=== PATIENT | female | born 1980 | race Caucasian/White ===

== ENCOUNTER → 2018-05-31 10:01 | Outpatient (CLI) | payer OTHER, SELFPAY ==
[2018-05-31 12:32] LABS: Cholesterol 210 mg/dL (200); High Density Lipoprotein 38 mg/dL; Triglycerides 126 mg/dL; Very Low Density Lipoprotein 25 mg/dL (5-40)
== END ==
PROVIDERS: Family Provider Family Medicine; PCP Family Medicine; Visit Provider Family Medicine
DX: E78.5 Hyperlipidemia, unspecified (principal)
CPT/HCPCS: 36415; 80061

== ENCOUNTER → 2018-08-26 11:41 | Outpatient (CLI) | payer OTHER, SELFPAY ==
[2018-08-30 08:15] LABS: HPV Reflexed? NOT INDICATED
== END ==
PROVIDERS: Visit Provider Obstetrics & Gynecology
DX: Z12.4 Encounter for screening for malignant neoplasm of cervix (principal)
CPT/HCPCS: 88175; G0145

== ENCOUNTER → 2018-08-29 09:22 | Outpatient (CLI) | payer OTHER, SELFPAY ==
--- NOTE | 2018-08-29 09:38 | BI_ITS ---
MAMMOGRAPHY - BILATERAL DIAGNOSTIC REASON FOR EXAM: Female, 38 years old. Palpable left breast mass. PERTINENT HISTORY: Non-contributory. Prior ultrasound-guided biopsy of the nodular density in the upper outer quadrant of the left breast. TECHNIQUE: Digital bilateral breast barrington (3D mammographic acquisition) in the CC and MLO projections. 2-D mediolateral oblique (MLO) and craniocaudad (CC) views of both breasts were obtained. CAD: Full Field Digital Mammography with Computer Added Detection was performed. COMPARISON: Comparison is made with prior mammogram dated January 13, 2017 and March 20, 2017. FINDINGS: Breast Composition: The breasts are heterogeneously dense, which may obscure small masses. There are no dominant masses or suspicious calcifications. Once again, a tissue clip marker is seen in the anterior upper lateral portion of the left breast. The nodule measures 2.2 cm x 1.9 cm. A tissue clip marker is seen within it. A tissue clip marker is also seen within the small nodule in the anterior superficial upper lateral portion of the right breast. No other significant abnormalities are identified. There has been no significant change since the prior study. BI/DIAG MAMM W/CAD, BILAT IMPRESSION: Stable bilateral diagnostic mammogram. One year follow-up recommended. (A) ASSESSMENT CATEGORY: BIRADS Category 2: Benign. A letter regarding these results will be sent to the patient by the facility within 30 days. Approximately 10% of breast cancers are not detected by mammography. A normal mammogram should not delay biopsy of a clinically suspicious abnormality. Electronically Signed: Ty Chao MD at 12:34 EST Tel [phone], Service support ,
--- NOTE | 2018-08-29 09:38 | US_ITS ---
STUDY: ULTRASOUND BREAST - LEFT REASON FOR EXAM: Female, 38 years old. Palpable lump left breast. TECHNIQUE: Axial and longitudinal images of the LEFT breast were performed with a high resolution ultrasound transducer. COMPARISON: Comparison is made with prior mammogram done earlier today as well as prior ultrasound the left breast dated January 13, 2017. FINDINGS: LEFT Breast: There is a 1.8 cm x 2 cm x 1.6 cm lobular hypoechoic solid mass at the 1:00 position of the breast at 3 signs of nipple. A tissue clip marker is seen within. There has been essentially no change. US/Breast Limited Unilateral IMPRESSION: Stable appearance of the lobulated hypoechoic solid nodule at the 1:00 position breast at 3 cm from nipple. A tissue clip marker is seen within it. ASSESSMENT CATEGORY: BIRADS Category 2: Benign. A letter regarding these results will be sent to the patient by the facility within 30 days. Electronically Signed: Ty Chao MD at 12:32 EST Tel [phone], Service support ,
== END ==
PROVIDERS: Family Provider Family Medicine; PCP Family Medicine; Referring Provider Obstetrics & Gynecology; Visit Provider Obstetrics & Gynecology
DX: N63.21 Unspecified lump in the left breast, upper outer quadrant (principal); R92.8 Other abnormal and inconclusive findings on diagnostic imaging of breast
CPT/HCPCS: 76642; 77062; 77063; 77066; 77067; G0279

== ENCOUNTER → 2020-04-09 08:12 | Outpatient (CLI) | payer OTHER, SELFPAY ==
--- NOTE | 2020-04-09 08:14 | BI_ITS ---
MAMMOGRAPHY - BILATERAL SCREENING REASON FOR EXAM: Female, 39 years old. Routine annual screening examination. PERTINENT HISTORY: Non-contributory. Remote bilateral breast biopsies. TECHNIQUE: Digital bilateral breast kam (3D mammographic acquisition) in the CC and MLO projections. 2-D mediolateral oblique (MLO) and craniocaudad (CC) views of both breasts were obtained. CAD: Full Field Digital Mammography with Computer Added Detection was performed. COMPARISON: Comparison is made with prior study dated 02/26/2019 and 02/17/2017. FINDINGS: Breast Composition: The breasts are heterogeneously dense, which may obscure small masses. There are no dominant masses or suspicious calcifications. A tissue clip marker is once again seen in the anterior upper lateral portion of the left breast. This is seen within a nodule measuring 2.2 cm x 1.9 cm. A tissue clip marker is also seen in the small nodule in the anterior superficial upper lateral portion of the right breast. No other significant abnormalities are identified. There has been no significant change since the prior study. BI/SCREEN MAMM (CAD) W/KAM BILAT IMPRESSION: Stable bilateral screening mammogram. Yearly follow-up mammogram recommended. (A) ASSESSMENT CATEGORY: BIRADS Category 2: Benign. A letter regarding these results will be sent to the patient by the facility within 30 days. Approximately 10% of breast cancers are not detected by mammography. A normal mammogram should not delay biopsy of a clinically suspicious abnormality. [id number] Electronically Signed: Ty Chao, at 9:47 EDT , Service support ,
== END ==
PROVIDERS: PCP Family Medicine; Referring Provider Obstetrics & Gynecology; Visit Provider Obstetrics & Gynecology
DX: Z12.31 Encounter for screening mammogram for malignant neoplasm of breast (principal)
CPT/HCPCS: 77063; 77067

== ENCOUNTER → 2022-02-20 | Outpatient (CLI) | payer OTHER, SELFPAY ==
--- NOTE | 2022-02-20 14:36 | BI_ITS ---
MAMMOGRAPHY - BILATERAL SCREENING REASON FOR EXAM: Female, 41 years old. Routine annual screening examination. PERTINENT HISTORY: Prior bilateral ultrasound-guided breast biopsy. TECHNIQUE: Digital bilateral breast kam (3D mammographic acquisition) in the CC and MLO projections. 2-D mediolateral oblique (MLO) and craniocaudad (CC) views of both breasts were obtained. CAD: Full Field Digital Mammography with Computer Added Detection was performed. COMPARISON: Comparison is made with prior study 04/09/2020 and 08/29/2018. FINDINGS: Breast Composition: The breasts are extremely dense, which lowers the sensitivity of mammography. There are no dominant masses or suspicious calcifications. A tissue clip marker is once again seen in the anterior upper lateral portion of the left breast. This is seen within the 2.1 cm x 1.5 cm nodule. A tissue clip marker is also seen along the anterior superior lateral portion of the right breast within a tiny nodule. No other significant abnormalities are identified. There has been no significant change since the prior study. BI/SCRN MAMM (CAD)W/KAM BILAT IMPRESSION: Stable bilateral screening mammogram. Yearly follow-up mammogram recommended. (A) ASSESSMENT CATEGORY: BIRADS Category 2: Benign. A letter regarding these results will be sent to the patient by the facility within 30 days. Approximately 10% of breast cancers are not detected by mammography. A normal mammogram should not delay biopsy of a clinically suspicious abnormality. [id number] Electronically Signed: Ty Chao MD at 8:17 EDT ,
== END | disposition home or self-care (01) ==
PROVIDERS: PCP Family Medicine; Referring Provider Family Medicine; Visit Provider Family Medicine
DX: Z12.31 Encounter for screening mammogram for malignant neoplasm of breast (principal)
CPT/HCPCS: 77063; 77067

== ENCOUNTER 2022-04-14 09:27 | Outpatient (CLI) | payer OTHER, SELFPAY ==
[2022-04-23 16:27] LABS: HPV APTIMA, High Risk Negative (Negative)
== END 2022-04-14 23:59 | disposition home or self-care (01) ==
LOC: LABSPEC 09:28
PROVIDERS: PCP Family Medicine; Visit Provider Obstetrics & Gynecology
DX: Z12.4 Encounter for screening for malignant neoplasm of cervix (principal)
CPT/HCPCS: 87624; 88175; G0145

== ENCOUNTER → 2023-03-22 | Outpatient (CLI) | payer OTHER, SELFPAY ==
[2023-03-22 12:15] LABS: Absolute Neutrophil Count 3.1 X10^3/uL (2.0-7.7); Basophil# 0.03 X10^3/uL; Basophil% 0.6 % (0-1); Eosinophil# 0.04 X10^3/uL; Eosinophils% 0.8 % (0-5); Hematocrit 39.2 % (37-47); Hemoglobin 12.7 g/dL (12.0-15.0); Lymphocyte % 32.2 % (19-41); Mean Corp Hgb Conc 32.4 g/dL (32-36); Mean Corpuscular Hgb 29.2 pg (27.0-32.0); Mean Corpuscular Volume 90.1 fL (81-99); Mean Platelet Vol. 9.4 fl (6.2-12.0); Monocyte# 0.35 X10^3/uL; Monocyte% 6.6 % (0-10); NRBC Flagged by Analyzer 0 % (0-5); Neutrophil # 3.14 X10^3/uL (2.7-7.7); Neutrophil % 59.4 % (47-70); Platelet Count 333 K/mm3 (150-450); RBC Distribution Width CV 13.3 % (11.6-14.6); RBC Distribution Width SD 44.4 fl (35.1-43.9); Red Blood Count 4.35 M/mm3 (4.2-5.4); White Blood Count 5.3 K/mm3 (4.4-11.0)
[2023-03-22 13:04] LABS: ALB/GLOB Ratio 1.2 RATIO (0.9-2.4); AST(SGOT) 13 U/L (15-37); Alanine Aminotransfer ALT/SGPT 15 U/L (13-56); Alkaline Phosphatase 73 U/L (45-117); Anion Gap 5 (5-15); BUN 11 mg/dL (7-18); BUN/Creat Ratio 15.8 RATIO (10-20); Calcium,Total 8.8 mg/dL (8.5-10.1); Chloride 108 mmol/L (98-107); Cholesterol 238 mg/dL (200); EST Glomerular Filtration Rate 98 mL/min (>60); Est Glom Filt Rate - Afr Amer 118 mL/min (>60); Globulin 3.4 g/dL (2.2-4.2); Glucose 110 mg/dL (74-106); High Density Lipoprotein 65 mg/dL; Potassium 3.8 mmol/L (3.5-5.1); Protein, Total 7.4 g/dL (6.4-8.2); Sodium Level 139 mmol/L (136-145); Triglycerides 53 mg/dL; Very Low Density Lipoprotein 11 mg/dL (5-40)
== END | disposition home or self-care (01) ==
LOC: BFHLAB 10:14
PROVIDERS: PCP Family Medicine; Referring Provider Family Medicine; Visit Provider Family Medicine
DX: Z00.00 Encounter for general adult medical examination without abnormal findings (principal); E78.5 Hyperlipidemia, unspecified
CPT/HCPCS: 36415; 80053; 80061; 85025

== ENCOUNTER → 2023-03-30 | Outpatient (CLI) | payer OTHER, SELFPAY ==
--- NOTE | 2023-03-30 07:04 | BI_ITS ---
MAMMOGRAPHY - BILATERAL SCREENING REASON FOR EXAM: Female, 42 years old. Routine annual screening examination. PERTINENT HISTORY: Non-contributory. Prior bilateral ultrasound-guided breast biopsies. TECHNIQUE: Digital bilateral breast kam (3D mammographic acquisition) in the CC and MLO projections. 2-D mediolateral oblique (MLO) and craniocaudad (CC) views of both breasts were obtained. CAD: Full Field Digital Mammography with Computer Added Detection was performed. COMPARISON: Comparison is made with prior study dated February 20, 2022 and April 09, 2020. FINDINGS: Breast Composition: The breasts are extremely dense, which lowers the sensitivity of mammography. There are no dominant masses or suspicious calcifications. A tissue clip marker is once again seen in the anterior upper lateral portion of the right breast. A tissue clip marker is also seen in the anterior superior lateral aspect of the left breast. This is within a 2.1 cm nodule. No other significant abnormalities are identified. There has been no significant change since the prior study. BI/SCRN MAMM (CAD)W/KAM BILAT IMPRESSION: Stable bilateral screening mammogram. Yearly follow-up mammogram recommended. (A) ASSESSMENT CATEGORY: BIRADS Category 2: Benign. A letter regarding these results will be sent to the patient by the facility within 30 days. Approximately 10% of breast cancers are not detected by mammography. A normal mammogram should not delay biopsy of a clinically suspicious abnormality. [id number] Electronically Signed: Ty Chao MD at 8:43 EDT ,
== END | disposition home or self-care (01) ==
LOC: OPBI 07:02
PROVIDERS: PCP Family Medicine; Referring Provider Family Medicine; Visit Provider Family Medicine
DX: Z12.31 Encounter for screening mammogram for malignant neoplasm of breast (principal)
CPT/HCPCS: 77063; 77067

== ENCOUNTER → 2024-12-22 | Outpatient (CLI) | payer OTHER, SELFPAY | END | disposition home or self-care (01) | LOC: LABSPEC 14:58 | PROVIDERS: PCP Family Medicine; Referring Provider Family Medicine; Visit Provider Family Medicine | DX: Z11.3 Encounter for screening for infections with a predominantly sexual mode of transmission (principal) ==

== ENCOUNTER → 2025-01-24 | Outpatient (CLI) | payer OTHER, SELFPAY ==
[2025-01-24 15:13] LABS: Cholesterol 240 mg/dL (<=200); Glucose 98 mg/dL (70-99); High Density Lipoprotein 60 mg/dL; Low Density Lipoprotein Calc. 160 mg/dL; Triglycerides 104 mg/dL; Very Low Density Lipoprotein 21 mg/dL (5-40); cholesterol:hdl ratio screen 4.02
== END | disposition home or self-care (01) ==
LOC: LAB 12:40
PROVIDERS: PCP Family Medicine; Referring Provider Family Medicine; Visit Provider Family Medicine
DX: Z13.1 Encounter for screening for diabetes mellitus (principal); E78.5 Hyperlipidemia, unspecified
CPT/HCPCS: 36415; 80061; 82947

== ENCOUNTER → 2025-03-07 | Outpatient (CLI) | payer OTHER, SELFPAY ==
--- NOTE | 2025-03-07 14:45 | BI_ITS ---
EXAM: SCRN MAMM (CAD)W/KAM BILAT DATE: 03/07/2025 CLINICAL HISTORY: F, Age 44 y/o , SCREENING TECHNIQUE: SCRN MAMM (CAD)W/KAM BILAT COMPARISON: Prior exam(s) were compared FINDINGS: TISSUE DENSITY: The breasts are heterogeneously dense, which may obscure small masses. Bilateral Breast Mammographic Findings: Left breast: There is spiculated mass in the lower-inner left breast posterior depth Right breast: No suspicious masses, calcifications or other abnormalities are identified. BI/SCRN MAMM (CAD)W/KAM BILAT IMPRESSION: Additional diagnostic imaging is recommended of the left breast with diagnostic left breast mammogram and diagnostic ultrasound. No mammographic evidence of malignancy in the right breast OVERALL FINAL ASSESSMENT BI-RADS 0: INCOMPLETE - NEED ADDITIONAL IMAGING EVALUATION. RECOMMENDATION: Additional Views obtained/call backs A letter with findings and recommendations will be mailed to the patient. Reading Location: [id number]
--- OUTSIDE RECORDS SUMMARY | 2025-03-07 20:13 | XMS RPT_ITS | CCD ---
Author Organization [facility] Inform ion Partnership [facility] Care Team Providers Care Building Wrecker Name Role Phone Janeth MONTGOMERY, Haydee Gordon Unavailable MATTHEW Vasquez RN, Loulou Harman Unavailabl belinda Vasquez RN RN, Loulou Harman Unavailabl e Dr. Lesley Orourke DO Primary Care Provider Contreras MONTGOMERY, Dr. Bloom Attending Provider [phone] Contreras MONTGOMERY, Dr. Bloom Referring Provider Dr. Lesley Orourke DO Attending Provider [phone] Dr. Lesley Orourke DO Referring Provider [phone] Lesley Orourke Primary Care Unavailable Malys, Lesley Referring Unavailable MalysLesley Attending Unavailable Merle Chairez Referring Unavailable Merle Chairez Attending Unavailable Malys, Lesley Primary Care Unavailable Malys, Lesley Primary Care Unavailable Malys, Lesley Referring Unavailable MalysLesley Attending Unavailable Allergies Allergy Classification Reported Allergen(s) Allergy Type Date of Onset Reaction(s) Facility (3 sources) sulfADIAZINE drug allergy 01-25-2017 [facility] Work Phone: Medications Completed/Discontinued Medications Medication Drug Class(es) Dates Sig (Normalized) Sig (Original) Drug Treatment Unknown - unknown (3 sources) No information available. Problems Problem Classification Problem Date Documented Date Episodic/Chronic Immunizations and screening for infectious disease (1 source) Encounter for screening for infections with a predominantly sexual mode of transmission; Translations: [Encounter for screening for infections with a predominantly sexual mode of transmission] Onset: 01-15-2025 Episodic Nonmalignant breast conditions (6 sources) Breast lump; Translations: [Unspecified lump in the right breast, unspecified quadrant] Onset: 01-25-2017 01-25-2017 Episodic Other nutritional; endocrine; and metabolic disorders (3 sources) Overweight; Translations: [Overweight] Onset: 01-25-2017 01-25-2017 Chronic Other screening for suspected conditions (not mental disorders or infectious disease) (4 sources) Mammography abnormal; Translations: [Encounter for other screening for malignant neoplasm of breast] Onset: 01-25-2017 01-25-2017 Episodic Results Test Name Value Interpretation Reference Range Facility Calculated very low density lipoprotein (VLDL) cholesterol measurementOrdered By: Lesleymolly Orourke on 01-24-2025 Calculated very low density lipoprotein (VLDL) cholesterol measurement 21 mg/dL 5-40 [facility] Glucoseon 01-24-2025 Glucose [Mass/Vol] 98 mg/dL Normal 70-99 [facility] Comment on above: Performed By: #### L 501.0100, L500.4100 #### [facility] [address] [place], [place], [address] LDL calc ser/plasOrdered By: Lesley Orourke on 01-24-2025 Cholesterol in LDL [Mass/Vol] 160 mg/dL [facility] Comment on above: Fqxtyjhkvc=216-170 m g/dL & Higher Apcj=013 mg/dL or greater Lipid Profileon 01-24-2025 CHOL:HDL 4.02 Normal [facility] Comment on above: Performed By: #### L 501.0100, L500.4100 #### [facility] [address] [place], [place], [address] Cholesterol [Mass/Vol] 240 mg/dL High <=200 [facility] Comment on above: Result Comment: Chol esterol level, Desirable <200 mg/dL Borderline high cholesterol 200-239 mg/dL High cholesterol >=240 mg/dL Recommendations of the NCEP Adult Treatment Panel for the following risk-cutoff thresholds for the [place] population. Performed By: #### L 501.0100, L500.4100 #### [facility] [address] [place], [address] Cholesterol in HDL [Mass/Vol] 60 mg/dL Normal [facility] Comment on above: Result Comment: Nora onal Cholesterol Education Program (NCEP) guidelines: <40 mg/dL: Low HDL-cholesterol (major risk factor for CHD) >= 60 mg/dL: High HDL-cholesterol (negative risk factor for CHD) HDL-cholesterol is affected by a number of factors, e.g. smoking, exercise, hormones, sex and age. Performed By: #### L 501.0100, L500.4100 #### [facility] [address] [place], [address] Cholesterol in LDL [Mass/Vol] 160 mg/dL Normal [facility] Comment on above: Result Comment: Bord dikndh=295-879 mg/dL Higher Ynbv=071 mg/dL or greater Performed By: #### L 501.0100, L500.4100 #### [facility] [address] [place], [address] Cholesterol in VLDL [Mass/Vol] 21 mg/dL Normal 5-40 [facility] Comment on above: Performed By: #### L 501.0100, L500.4100 #### [facility] [address] [place], [address] Triglyceride [Mass/Vol] 104 mg/dL Normal [facility] Comment on above: Result Comment: The drugs N-Acetylcysteine and Metamizole may falsely depress this assay. Normal range: <150 mg/dL Borderline High: 150-199 mg/dL High: 200-499 mg/dL Very High: >500 mg/dL Performed By: #### L 501.0100, L500.4100 #### [facility] [address] [place], [address] Screening total cholesterol/ high density lipoprotein (HDL) cholesterol ratioOrdered By: Lesley Orourke on 01-24-2025 Cholesterol.total/Chol esterol in HDL [Mass ratio] 4.02 {ratio} [facility] Serum glucose measurement (m ass/volume)Ordered By: Lesley Orourke on 01-24-2025 Glucose [Mass/Vol] 98 mg/dL 70-99 [facility] Serum or plasma cholesterol in HDL measurement (mass/volume)Ordered By: Lesley Orourke on 01-24-2025 Cholesterol in HDL [Mass/Vol] 60 mg/dL >40 [facility] Comment on above: National Cholesterol Education Program (NCEP) guidelines:<40 mg/dL: Low HDL-cholesterol (major risk factor for CHD)>= 60 mg/dL: High HDL-cholesterol (negative risk factor for CHD)HDL-cholesterol is affected by a number of factors, e.g. smoking, exercise, hormones, sex and age. Serum or plasma cholesterol measurement (mass/volume)Ordered By: Lesley Orourke on 01-24-2025 Cholesterol [Mass/Vol] 240 mg/dL High <201 [facility] Comment on above: Cholesterol level, D esirable <200 mg/dLBorderline high cholesterol 200-239 mg/dLHigh cholesterol >=240 mg/dLRecommendations of the NCEP Adult Treatment Panel for the following risk-cutoff thresholds for the [place] population. Triglycerides measurementOrd ered By: Lesley Orourke on 01-24-2025 Triglyceride [Mass/Vol] 104 mg/dL <199 [facility] Comment on above: The drugs N-Acetylcy steine and Metamizole may falsely depress this assay. Normal range: <150 mg/dLBorderline High: 150-199 mg/dLHigh: 200-499 mg/dLVery High: >500 mg/dL L3410.9992on 12-26-2024 [facility] Misc. COMMENT Normal . [facility] Comment on above: Order Comment: 1 NUSWAB VAGINITIS PLUS (VG+) Result Comment: Test Ordered: [id number] NuSwab Vaginitis Plus (VG+) Test(s) 18000114- Atopobium vaginae; 18000115- BVAB 2; 18000116- Megasphaera 1 was developed and its performance characteristics determined by [facility]. It has not been cleared or approved by the Food and Drug Administration. Test(s) 774515-Uudjebx albicans, NADIA; 17991220- Liliana glabrata, NADIA was developed and its performance characteristics determined by [facility]. It has not been cleared or approved by the Food and Drug Administration. Atopobium vaginae Low - 0 Score =G Reference Range: . BVAB 2 Low - 0 Score =G Reference Range: . Megasphaera 1 Low - 0 Score =G Reference Range: . Calculate total score by adding the 3 individual bacterial vaginosis (BV) marker scores together. Total score is interpreted as follows: Total score 0-1: Indicates the absence of BV. Total score 2: Indeterminate for BV. Additional clinical data should be evaluated to establish a diagnosis. Total score 3-6: Indicates the presence of BV. Liliana albicans, NADIA Positive [A ] =G Reference Range: Negative Liliana glabrata, NADIA Negative =G Reference Range: Negative Trich vag by NADIA Negative =G Reference Range: Negative Chlamydia trachomatis, NADIA Negative =G Reference Range: Negative Neisseria gonorrhoeae, NADIA Negative =G Reference Range: Negative Performed at: =[facility] [id number] Television Mechanic: Hanna Lopez MD, Phone: [phone] Performed at: [address] [id number] Television Mechanic: Camron Henson PhD, Phone: [phone] Performed By: #### L 3410.9992 #### [facility] [address] [place] [address], [address] 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 [facility] Former smoker Invalid Interpretation Code [facility] Work Phone: Office Visit: right breast a bnormal u/s_left breast ?fibroadenomaon 01-25-2017 Fall risk assessment No [facility] Work Phone: Protein mass conc Done [facility] [employer] Work Phone: Protein mass conc no [facility] [employer] Work Phone: Tobacco smoking status NHIS Never [facility] Work Phone: Tobacco smoking status NHIS Former smoker [facility] [employer] Work Phone: Vital Signs Date Time Vital Sign Value Performing Clinician Facility 01-25-2017 14:26-0400 BMI (Body Mass Index) 29.99 kg/m2 Loulou Vasquez RN RN [facility] Work Phone: 01-25-2017 14:26-0400 Body Temperature 98.3 [degF] Loulou Vasquez RN RN [facility] Work Phone: 01-25-2017 14:26-0400 BP Diastolic 73 mm[Hg] Loulou Vasquez RN RN [facility] Work Phone: 01-25-2017 14:26-0400 BP Systolic 124 mm[Hg] Loulou Vasquez RN RN [facility] Work Phone: 01-25-2017 14:26-0400 Height 167.64 cm Loulou Vasquez RN RN [facility] Work Phone: 01-25-2017 14:26-0400 Pulse (Heart Rate) 66 /min Loulou Vasquez RN RN [facility] Work Phone: 01-25-2017 14:26-0400 Pulse Oximetry 100 % Loulou Vasquez RN RN [facility] Work Phone: 01-25-2017 14:26-0400 Respiratory Rate 18 /min Loulou Vasquez RN RN [facility] Work Phone: 01-25-2017 14:-0400 Weight 84.28 kg Loulou Vasquez RN RN [facility] Work Phone: Encounters Encounter Date Encounter Type Care Provider Facility Start: 03-07-2025 ambulatory Lesley Orourke Facility:[facility] Start: 01-24-2025 End: 01-24-[address] Lesley Orourke DO Work Phone: [facility] Work Phone: Start: 01-24-2025 End: 01-24-[address] Lesley Orourke DO -Laboratory Work Phone: Start: 01-24-2025 End: 01-24-2025 ambulatory Lesley Orourke Facility:[facility] Start: 12-22-2024 End: 12-22-[address] Lesley Orourke DO Work Phone: [facility] Work Phone: Start: 12-22-2024 End: 12-22-[address] Merle Chairez MD -Laboratory, Specimen Work Phone: Start: 12-22-2024 End: 12-22-2024 ambulatory Merle Chairez Facility:[facility] Start: 04-14-2022 End: 04-14-2022 ambulatory [facility] Work Phone: Start: 04-14-2022 End: 04-14-2022 Patient encounter procedure [facility]-Laboratory, Specimen Start: 02-20-2022 End: 02-20-2022 Patient encounter procedure [facility]-Outpatient Breast Imaging Procedures Date Procedure Procedure Detail Performing Clinician Start: 12-22-[address] Lesley Orourke DO Work Phone: Comment on above: Test Ordered: [id number] NuSwab Vaginitis Pl us (VG+)Test(s) 303301- Atopobium vaginae; 873380- BVAB 2;336927- Megasphaera 1was developed and its performance characteristicsdetermined by [facility]. It has not been cleared or approvedby the Food and Drug Administration.Test(s) 928456-Ckzqqof albicans, NADIA; 871319-Aadkcba glabrata, NAAwas developed and its performance characteristicsdetermined by [facility]. It has not been cleared or approvedby the Food and Drug Administration. Atopobium vaginae Low - 0 Score =G Reference Range: . BVAB 2 Low - 0 Score =G Reference Range: . Megasphaera 1 Low - 0 Score =G Reference Range: .Calculate total score by adding the 3 individual bacterialvaginosis (BV) marker scores together. Total score isinterpreted as follows:Total score 0-1: Indicates the absence of BV.Total score 2: Indeterminate for BV. Additional clinical data should be evaluated to establish a diagnosis.Total score 3-6: Indicates the presence of BV.Liliana albicans, NADIA Positive [A ] =G Reference Range: NegativeCandida glabrata, NADIA Negative =G Reference Range: NegativeTrich vag by NADIA Negative =G Reference Range: NegativeChlamydia trachomatis, NADIA Negative =G Reference Range: NegativeNeisseria gonorrhoeae, NADIA Negative =G Reference Range: NegativePerformed at: =G - [facility] [place], [place] [id number] Director: Hanna Lopez MD, Phone: [phone] at: - [facility] [id number] Director: Camron Henson PhD, Phone: [phone] Start: 02-20-2022 Screening mammography Start: 01-25-2017 End: 01-25-2017 Dietary management education, guidance, and counseling Loulou Vasquez RN RN Plan of Treatment Date Care Activity Detail Author Start: 02-17-2017 End: 02-17-2017 Appointment Appointment [facility] [employer] Work Phone: Start: 01-25-2017 End: 01-25-2017 Appointment Appointment [facility] [employer] Work Phone: Start: 01-25-2017 End: 01-25-2017 Bx breast w/device 1st lesion ultrasound guid Bx Breast, device placement, US guidance [facility] [employer] Work Phone: Start: 01-25-2017 End: 01-25-2017 Follow Up after Imaging/labs Follow Up after Imaging/labs [facility] [employer] Work Phone: Path report.final Dx Spec [facility] Work Phone: Payers Date Payer Category Payer Self-pay [id number] 2024 Unknown [id number] 2014 Unknown [id number] Private Health Insurance [id number] Unknown [id number] Unknown [id number] Unknown [id number] Social History Date Type Detail Facility Start: 05-15-2013 Tobacco smoking stat [facility] Unknown if ever smoked [facility] Work Phone: Start: 1980 Sex Assigned At Female [facility] Start: 05-15-2013 Tobacco smoking stat [facility] Ex-smoker (finding) [facility] Evaluation note Note Date & Type Note Facility Evaluation note No assessment information availa ble [facility] Work Phone: Reason for referral (narrative) Note Date & Type Note Facility Reason for referral (narrative) No reason for referral information available [facility] Work Phone: Chief Complaint and Reason for Visit Chief Complaint SCREENING Summary Purpose Family History No Family History Records Found Advance Directives No Advanced Directives Records Found Additional Source Comments Goals (unrecognized section and content) Goals may be documented in a n alternate sectionGoals may be documented in an alternate sectionGoals may be documented in an alternate sectionGoals may be documented in an alternate section Care Teams (unrecognized sec tion and content) Team Status: Active Member Role Status Dates Dr. Lesley Orourke DO Family Provider Active Dr. Lesley Orourke DO Primary Care Provider Active Team Status: Inactive Member Role Status Dates Dr. Lesley Orourke DO Primary Care Provider Active Start: December 22, 2024 End: December 22, 2024 Dr. Merle Chairez MD Attending Provider Active Start: December 22, 2024 End: December 22, 2024 Dr. Merle Chairez MD Referring Provider Active Start: December 22, 2024 End: December 22, 2024 Team Status: Inactive Member Role Status Dates Dr. Lesley Orourke DO Primary Care Provider Active Start: January 24, 2025 End: January 24, 2025 Dr. Lesley Orourke DO Attending Provider Active St art: January 24, 2025 End: January 24, 2025 Dr. Lesley Orourke DO Referring Provider Active St art: January 24, 2025 End: January 24, 2025 INFORMATION SOURCE (unrecogn ized section and content) DATE CREATED AUTHOR 03/02/[address] [facility] FOR RECORDS PERTAINING TO PATIENTS WHO ARE OR HAVE BEEN ENROLLED IN A CHEMICAL DEPENDENCY/SUBSTANCEABUSE PROGRAM, SOME INFORMATION MAY BE OMITTED. This clinical summary was aggregated from multiple sources. Caution should be exercised in using it in the provision of clinical care. This summary normalizes information from multiple sources, and as a consequence, information in this document may materially change the coding, format and clinical context of patient data. In addition, data may be omitted in some cases. CLINICAL DECISIONS SHOULD BE BASED ON THE PRIMARY CLINICAL RECORDS. [employer] provides no warranty or guarantee of the accuracy or completeness of information in this document.
== END | disposition home or self-care (01) ==
LOC: OPBI 14:44
PROVIDERS: PCP Family Medicine; Referring Provider Family Medicine; Visit Provider Family Medicine
DX: Z12.31 Encounter for screening mammogram for malignant neoplasm of breast (principal)
CPT/HCPCS: 77063; 77067

== ENCOUNTER → 2025-03-09 | Outpatient (CLI) | payer OTHER, SELFPAY ==
--- NOTE | 2025-03-09 09:32 | BI_ITS ---
EXAM: DIAG MAMM W/CAD, UNILAT; LT BRST UNILAT KAM ADD ON; BREAST COMPLETE UNILATERAL 03/09/2025 CLINICAL HISTORY: 44-year-old female presents for follow-up examination for the left breast mass seen on examination of 03/07/2025. No family history of breast cancer. TECHNIQUE: DIAG MAMM W/CAD, UNILAT; LT BRST UNILAT KAM ADD ON; BREAST COMPLETE UNILATERAL. COMPARISON: Prior exam(s) dated 03/07/2025, 03/30/2023, 02/20/2022, 04/09/2020. FINDINGS: MAMMOGRAM: TISSUE DENSITY: The breasts are heterogeneously dense, which may obscure small masses. Unilateral Left Breast Mammographic Findings: Follow-up examination performed for the left breast mass seen on examination of 03/07/2025. On the present examination, there is an irregular high density mass in the lower inner left breast at posterior depth. ULTRASOUND: 1. There is an irregular hypoechoic mass with spiculated margins in the left breast at 6:30 o'clock 9 cm from the nipple, measuring 1.9 x 1.5 x 0.8 cm. There is associated internal vascular flow. This is the correlate for the mammographic finding. 2. There is an irregular hypoechoic mass in the left breast at 1 o'clock 8 cm from the nipple, measuring 2.1 x 1.7 x 1.0 cm. There is associated internal vascular flow. This appears morphologically similar to the mass in the left breast at 6:30 o'clock. 3. There are 2 intraductal masses with associated vascular flow in the left breast at 10 o'clock 5 cm from the nipple measuring 0.4 x 0.4 x 0.2 cm and at 10:30 o'clock 5 cm from the nipple measuring 0.3 x 0.3 x 0.2 cm. 4. There are at least 3 abnormal left axillary lymph nodes. There is a left axillary lymph node with a focal cortical bulge measuring 1.7 x 1.2 x 1.3 cm and cortical thickness of 0.4 cm. There is an abnormal left axillary lymph node with loss of the fatty kendrick measuring 0.9 x 0.8 x 0.9 cm. There is another abnormal left axillary lymph node with diffuse cortical thickening and effacement of the fatty hilum measuring 1.8 x 1.8 x 0.9 cm and cortical thickness of 0.7 cm. 5. The remainder of the left breast was imaged demonstrating multiple scattered cysts, also the previously biopsied mass at 12 o'clock 4 cm from the nipple with an associated biopsy marker clip. BI/DIAG MAMM W/CAD, UNILAT IMPRESSION: 1. Left breast mass at 6:30 o'clock is highly suggestive for malignancy. Alvarez mmend tissue sampling with ultrasound-guided biopsy. 2. Left breast mass at 1 o'clock is suspicious. Recommend tissue sampling wit h ultrasound-guided biopsy. 3. Left breast intraductal masses at 10 o'clock and 10:30 o'clock are suspicio us. Recommend tissue sampling of 1 of these masses with ultrasound-guided biopsy. 4. Abnormal left axillary lymph nodes are suspicious. Recommend tissue sampli ng with ultrasound-guided biopsy. OVERALL FINAL ASSESSMENT BI-RADS 5: HIGHLY SUGGESTIVE OF MALIGNANCY. RECOMMENDATION: Biopsy Recommended A letter with findings and recommendations will be mailed to the patient. Reading Location: [id number]
--- NOTE | 2025-03-09 09:33 | BI_ITS ---
EXAM: DIAG MAMM W/CAD, UNILAT; LT BRST UNILAT SAMSON ADD ON; BREAST COMPLETE UNILATERAL 03/09/2025 CLINICAL HISTORY: 44-year-old female presents for follow-up examination for the left breast mass seen on examination of 03/07/2025. No family history of breast cancer. TECHNIQUE: DIAG MAMM W/CAD, UNILAT; LT BRST UNILAT SAMSON ADD ON; BREAST COMPLETE UNILATERAL. COMPARISON: Prior exam(s) dated 03/07/2025, 03/30/2023, 02/20/2022, 04/09/2020. FINDINGS: MAMMOGRAM: TISSUE DENSITY: The breasts are heterogeneously dense, which may obscure small masses. Unilateral Left Breast Mammographic Findings: Follow-up examination performed for the left breast mass seen on examination of 03/07/2025. On the present examination, there is an irregular high density mass in the lower inner left breast at posterior depth. ULTRASOUND: 1. There is an irregular hypoechoic mass with spiculated margins in the left breast at 6:30 o'clock 9 cm from the nipple, measuring 1.9 x 1.5 x 0.8 cm. There is associated internal vascular flow. This is the correlate for the mammographic finding. 2. There is an irregular hypoechoic mass in the left breast at 1 o'clock 8 cm from the nipple, measuring 2.1 x 1.7 x 1.0 cm. There is associated internal vascular flow. This appears morphologically similar to the mass in the left breast at 6:30 o'clock. 3. There are 2 intraductal masses with associated vascular flow in the left breast at 10 o'clock 5 cm from the nipple measuring 0.4 x 0.4 x 0.2 cm and at 10:30 o'clock 5 cm from the nipple measuring 0.3 x 0.3 x 0.2 cm. 4. There are at least 3 abnormal left axillary lymph nodes. There is a left axillary lymph node with a focal cortical bulge measuring 1.7 x 1.2 x 1.3 cm and cortical thickness of 0.4 cm. There is an abnormal left axillary lymph node with loss of the fatty kendrick measuring 0.9 x 0.8 x 0.9 cm. There is another abnormal left axillary lymph node with diffuse cortical thickening and effacement of the fatty hilum measuring 1.8 x 1.8 x 0.9 cm and cortical thickness of 0.7 cm. 5. The remainder of the left breast was imaged demonstrating multiple scattered cysts, also the previously biopsied mass at 12 o'clock 4 cm from the nipple with an associated biopsy marker clip. BI/Lt Brst Unilat Samson Add On IMPRESSION: 1. Left breast mass at 6:30 o'clock is highly suggestive for malignancy. Alvarez mmend tissue sampling with ultrasound-guided biopsy. 2. Left breast mass at 1 o'clock is suspicious. Recommend tissue sampling wit h ultrasound-guided biopsy. 3. Left breast intraductal masses at 10 o'clock and 10:30 o'clock are suspicio us. Recommend tissue sampling of 1 of these masses with ultrasound-guided biopsy. 4. Abnormal left axillary lymph nodes are suspicious. Recommend tissue sampli ng with ultrasound-guided biopsy. OVERALL FINAL ASSESSMENT BI-RADS 5: HIGHLY SUGGESTIVE OF MALIGNANCY. RECOMMENDATION: Biopsy Recommended A letter with findings and recommendations will be mailed to the patient. Reading Location: [id number]
== END | disposition home or self-care (01) ==
LOC: OPBI 09:29
PROVIDERS: PCP Family Medicine; Referring Provider Family Medicine; Visit Provider Family Medicine
DX: R92.8 Other abnormal and inconclusive findings on diagnostic imaging of breast (principal)
CPT/HCPCS: 76641; 77061; 77065; G0279

== ENCOUNTER 2025-03-15 10:09 | Outpatient (CLI) | payer OTHER, SELFPAY ==
--- NOTE | 2025-03-14 15:30 | BRBX_PTH ---
PATIENT: LUCIAN SINGLETARY LOC: [facility] U#:[id number] AGE/SX: 44/F ROOM: RE03/15/[address]: Dr. Nicole Breen DO : 1980 BED: DIS: 03/15/2025 SPEC #: [id number] RECD: 03/14/25 16:56 STATUS: BRITTANY KHALIDA #: [id number] NURA: 03/14/25 15:[address]: Nicole Breen DEPT: SURGICAL PATHOLOGY RECD BY: Honorio Pandya ENTERED: 03/15/25 10:19 SP TYPE: BREAST BX OTHR DR: Dr. Lesley Orourke DO Tissues: A - Left breast, NOS B - Left breast, NOS C - Axillary lymph node, NOS Procedures: Immunohistochemical Stains Surgery Specimen Level IV IHC Stain ADDITIONAL HEADER OPERATION: Left breast biopsy, left lymph node biopsy PRE-OP DIAGNOSIS: Left breast biopsy, left lymph node biopsy TISSUE SUBMITTED: A- Left breast biopsy - 7o'clock, B- Left breast - 1o'clock, C- Left axillary lymph node MICROSCOPIC DIAGNOSIS A. Breast, left, 7 o'clock, 7-10 CMFN, core biopsy: - Invasive ductal carcinoma with neuroendocrine features. - Grade 2 (tubule 3, nuclear 2, mitosis 1). - At least 1.2 cm - ER: positive (95%, intermediate intensity) - ND: positive (80%, intermediate intensity) - [id number]: negative (0) - Ki67: 80% Note: Ecadherin is positive; p120 shows membranous staining pattern, confirming the diagnosis of ductal carcinoma. Synaptophysin is focally positive; Chromogranin is negative. B. Breast, left, 1 o'clock, 8 CMFN, core biopsy: - Invasive ductal carcinoma with neuroendocrine features. - Grade 2 (tubule 3, nuclear 2, mitosis 1). - At least 1.0 cm - ER: positive (95%, intermediate intensity) - ND: positive (100%, strong intensity) - [id number]: negative (1+) - Ki67: 90% Note: Ecadherin is positive; p120 shows membranous staining pattern, confirming the diagnosis of ductal carcinoma. Synaptophysin is focally positive; Chromogranin is negative. C. Lymph node, left axilla, core biopsy: - Positive for macrometastasis, at least 0.8 cm (two of two cores). COMMENT A preliminary diagnosis was discussed with Dr Lanre Fowler 03/21/2025. MICROSCOPIC DESCRIPTION Slides are reviewed. All matched controls reacted appropriately. (Ecadherin, Synaptophysin, Chromogranin, ER, ND) These tests were developed and their performance characteristics determined by [facility]. They may not have been cleared or approved by the U.[place]. Food and Drug Administration. The FDA has determined that such clearance or approval is not necessary. The above immunohistochemical/dualISH markers are reviewed by the Pathologist. All controls show appropriate reactivity. (HER2, p120) All immunohistochemistry, in situ hybridization, and histochemical tests were developed by and are performed at the [facility], [address] [place] [address]. All Immunofluorescent (IF) tests were developed by and are performed at the [facility], [address] [place] [address]. All tests reported here, except those addressing HER2 overexpression as a predictive marker, have not been cleared by or approved by the US Food and Drug Administration (FDA). The laboratory is regulated under CLIA as qualified to perform high-complexity testing. The tests are used for clinical purposes. They should not be regarded as investigational or for research. GROSS DESCRIPTION Received in 3 formalin containers labeled with the patient's name and date of . Designated as: A. "L breast tissue 7 o'clock" are 4 robertson-yellow tissue cores, 0.9 cm to 1.3 cm in length by 0.1 cm in diameter. Entirely submitted in 1 cassette. Cold ischemic time: < 1 minuteFormalin fixation time: 28 hours B. "L breast 1 o'clock" are are 2 robertson-yellow fragmented tissue cores, 0.8 cm and 1.5 cm in length by 0.1 cm in diameter. Entirely submitted in 1 cassette. Cold ischemic time: < 1 minuteFormalin fixation time: 28 hours C. "Lymph" are 2 robertson-yellow fragmented tissue cores, 0.7 cm and 1.0 cm in length by 0.1 cm in diameter. Entirely submitted in 1 cassette. MT 03/15/2025 CPT:05619m2,44491a7,20273a1,43783m6
--- OUTSIDE RECORDS SUMMARY | 2025-03-15 19:10 | XMS RPT_ITS | CCD ---
Author Organization [facility] Care Team Providers Care Pattern Grader Supervisor Name Role Phone Janeth MONTGOMERY, Haydee Gordon Unavailable MATTHEW Vasquez RN, Loulou Foote Unavailable Mary Vasquez RN RN, Loulou Molly Unavailable Mary e Haven MONTALVO, Dr. Sutton Primary Care Provider Contreras MONTGOMERY, Dr. Bloom Attending Provider Contreras MONTGOMERY, Dr. Bloom Referring Provider Dr. Lesley Orourke DO Attending Provider Dr. Lesley Orourke DO Referring Provider Malys, Lesley Referring Unavailable Malys, Lesley Primary Care Unavailable Malys, Lesley Attending Unavailable Malys, Lesley Referring Unavailable Malys, Lesley Primary Care Unavailable Malys, Lesley Attending Unavailable Malys, Lesley Primary Care Unavailable Merle Chairez Attending Unavailable Merle Chairez Referring Unavailable Malys, Lesley Primary Care Unavailable Haydee Fowler Attending Unavailable Adielys, Lesley Referring Unavailable Malys, Lesley Referring Unavailable Malys, Lesley Primary Care Unavailable Malys, Lesley Attending Unavailable Dr. Haydee Fowler MD Attending Provider Dr. Nicole Breen DO Attending Provider Allergies Allergy Classification Reported Allergen(s) Allergy Type Date of Onset Reaction(s) Facility (3 sources) sulfADIAZINE drug allergy 7 [facility] Work Phone: (2 sources) Sulfonamides (Antibiotic) Allergy to substance 5 [facility] Medications Completed/Discontinued Medications Medication Drug Class(es) Dates Sig (Normalized) Sig (Original) Drug Treatment Unknown - unknown (3 sources) No information available. Problems Problem Classification Problem Date Documented Date Episodic/Chronic Contraceptive and procreative management (1 source) Intrauterine contraceptive device in situ; Translations: [Presence of (intrauterine) contraceptive device] 03-14-2025 Episodic Immunizations and screening for infectious disease (1 source) Encounter for screening for infections with a predominantly sexual mode of transmission; Translations: [Encounter for screening for infections with a predominantly sexual mode of transmission] Onset: 01-15-2025 Episodic Lymphadenitis (2 sources) Axillary lymphadenopathy; Translations: [Localized enlarged lymph nodes] 03-14-2025 Episodic Comment on above: Left suspicious for mets Nonmalignant breast conditions (13 sources) Breast lump; Translations: [Unspecified lump in the right breast, unspecified quadrant] Onset: 01-25-2017 01-25-2017 Episodic Other nutritional; endocrine; and metabolic disorders (3 sources) Overweight; Translations: [Overweight] Onset: 01-25-2017 01-25-2017 Chronic Other screening for suspected conditions (not mental disorders or infectious disease) (5 sources) Mammography abnormal; Translations: [Other abnormal and inconclusive findings on diagnostic imaging of breast] Onset: 01-25-2017 01-25-2017 Episodic Results Test Name Value Interpretation Reference Range Facility Breast Complete Unilateralon 03-09-2025 Breast Complete Unilateral [facility] [address], [place] [address] Breast Complete Unilateral MR#: [id number] Acct: [id number] Name: LUCIAN SINGLETARY Rep #: [id number] : 1980 F 44 From: Jojo Corado MD PCP: Dr. Lesley Orourke, Status: [facility] CLI Study: Breast Complete Unilateral Date of Exam: 03/09 Exam# [id number] Ordering Dr: Lesley Orourke DO EXAM: DIAG MAMM W/CAD, UNILAT; LT BRST UNILAT SAMSON ADD ON; BREAST COMPLETE UNILATERAL 03/09/2025 CLINICAL HISTORY: 44-year-old female presents for follow-up examination for the left breast mass seen on examination of 03/07/2025. No family history of breast cancer. TECHNIQUE: DIAG MAMM W/CAD, UNILAT; LT BRST UNILAT SAMSON ADD ON; BREAST COMPLETE UNILATERAL. COMPARISON: Prior exam(s) dated 03/07/2025, 03/30/2023, 02/20/2022, 04/09/2020. FINDINGS: MAMMOGRAM: TISSUE DENSITY: The breasts are heterogeneously dense, which may obscure small masses. Unilateral Left Breast Mammographic Findings: Follow-up examination performed for the left breast mass seen on examination of 03/07/2025. On the present examination, there is an irregular high density mass in the lower inner left breast at posterior depth. ULTRASOUND: 1. There is an irregular hypoechoic mass with spiculated margins in the left breast at 6:30 o'clock 9 cm from the nipple, measuring 1.9 x 1.5 x 0.8 cm. There is associated internal vascular flow. This is the correlate for the mammographic finding. 2. There is an irregular hypoechoic mass in the left breast at 1 o'clock 8 cm from the nipple, measuring 2.1 x 1.7 x 1.0 cm. There is associated internal vascular flow. This appears morphologically similar to the mass in the left breast at 6:30 o'clock. 3. There are 2 intraductal masses with associated vascular flow in the left breast at 10 o'clock 5 cm from the nipple measuring 0.4 x 0.4 x 0.2 cm and at 10:30 o'clock 5 cm from the nipple measuring 0.3 x 0.3 x 0.2 cm. 4. There are at least 3 abnormal left axillary lymph nodes. There is a left axillary lymph node with a focal cortical bulge measuring 1.7 x 1.2 x 1.3 cm and cortical thickness of 0.4 cm. There is an abnormal left axillary lymph node with loss of the fatty kendrick measuring 0.9 x 0.8 x 0.9 cm. There is another abnormal left axillary lymph node with diffuse cortical thickening and effacement of the fatty hilum measuring 1.8 x 1.8 x 0.9 cm and cortical thickness of 0.7 cm. 5. The remainder of the left breast was imaged demonstrating multiple scattered cysts, also the previously biopsied mass at 12 o'clock 4 cm from the nipple with an associated biopsy marker clip. US/Breast Complete Unilateral IMPRESSION: 1. Left breast mass at 6:30 o'clock is highly suggestive for malignancy. Recommend tissue sampling with ultrasound-guided biopsy. 2. Left breast mass at 1 o'clock is suspicious. Recommend tissue sampling with ultrasound-guided biopsy. 3. Left breast intraductal masses at 10 o'clock and 10:30 o'clock are suspicious. Recommend tissue sampling of 1 of these masses with ultrasound-guided biopsy. 4. Abnormal left axillary lymph nodes are suspicious. Recommend tissue sampling with ultrasound- guided biopsy. OVERALL FINAL ASSESSMENT BI-RADS 5: HIGHLY SUGGESTIVE OF MALIGNANCY. RECOMMENDATION: Biopsy Recommended A letter with findings and recommendations will be mailed to the patient. Reading Location: [facility] CC: Dr. Lesley Orourke DO Parts Product Analyst: Signed Normal [facility] Breast imaging reportOrdered By: Jojo Corado on 03-09-2025 Study report [facility] [address] [place], [place] [address] DIAG MAMM W/CAD, UNILAT MR#: [id number] Acct: [id number] Name: LUCIAN SINGLETARY Rep #: [id number] : 1980 F 44 From: Ofelia Corado MD PCP: Dr. Lesley Orourke DO Status: [facility] Study:DIAG MAMM W/CAD, UNILAT Date of Exam: 03/09/25 Exam# [id number] Ordering Dr: Kimberly Orourke sa, DO EXAM: DIAG MAMM W/CAD, UNILAT; LT BRST UNILAT SAMSON ADD ON; BREAST COMPLETE UNILATERAL 03/09/2025 CLINICAL HISTORY: 44-year-old female presents for follow-up examination for the left breast mass seen on examination of 03/07/2025. No family history of breast cancer. TECHNIQUE: DIAG MAMM W/CAD, UNILAT; LT BRST UNILAT SAMSON ADD ON; BREAST COMPLETE UNILATERAL. COMPARISON: Prior exam(s) dated 03/07/2025, 03/30/2023, 02/20/2022, 04/09/2020. FINDINGS: MAMMOGRAM: TISSUE DENSITY: The breasts are heterogeneously dense, which may obscure small masses. Unilateral Left Breast Mammographic Findings: Follow-up examination performed for the left breast mass seen on examination of 03/07/2025. On the present examination, there is an irregular high density mass in the lower inner left breast at posterior depth. ULTRASOUND: 1. There is an irregular hypoechoic mass with spiculated margins in the left breast at 6:30 o'clock 9 cm from the nipple, measuring 1.9 x 1.5 x 0.8 cm. There is associated internal vascular flow. Thisis the correlate for the mammographic finding. 2. There is an irregular hypoechoic mass in the left breast at 1 o'clock 8 cm from the nipple, measuring 2.1 x 1.7 x 1.0 cm. There is associated internal vascular flow. This appears morphologically similar to the mass in the left breast at 6:30 o'clock. 3. There are 2 intraductal masses with associated vascular flow in the left breast at 10 o'clock 5 cm from the nipple measuring 0.4 x 0.4 x 0.2 cm and at 10:30 o'clock 5 cm from the nipple measuring 0.3 x 0.3x 0.2 cm. 4. There are at least 3 abnormal left axillary lymph nodes. There is a left axillary lymph node with a focal cortical bulge measuring 1.7 x 1.2 x 1.3 cm and cortical thickness of 0.4 cm. There is an abnormal left axillary lymph node with loss of the fatty kendrick measuring 0.9 x 0.8 x 0.9 cm. There is another abnormal left axillary lymph node with diffuse cortical thickening and effacement of the fatty hilum measuring 1.8 x 1.8 x 0.9 cm and cortical thickness of 0.7 cm. 5. The remainder of the left breast was imaged demonstrating multiple scatteredcysts, also the previously biopsied mass at 12 o'clock 4 cm from the nipple with an associated biopsy marker clip. BI/DIAG MAMM W/CAD, UNILAT IMPRESSION: 1. Left breast mass at 6:30 o'clock is highly suggestive for malignancy. Recommend tissue sampling with ultrasound-guided biopsy. 2. Left breast mass at 1 o'clock is suspicious. Recommend tissue sampling withultrasound-guid ed biopsy. 3. Left breast intraductal masses at 10 o'clock and 10:30 o'clock are suspicious. Recommend tissue sampling of 1 of these masses with ultrasound-guided biopsy. 4. Abnormal left axillary lymph nodes are suspicious. Recommend tissue sampling with ultrasound-guided biopsy. OVERALL FINAL ASSESSMENT BI-RADS 5: HIGHLY SUGGESTIVE OF MALIGNANCY. RECOMMENDATION: Biopsy Recommended A letter with findings and recommendations will be mailed to the patient. Reading Location: [facility] CC: Dr. Lesley Orourke DO ~ Parts Product Analyst: Signed [facility] Study report [facility] [address] [place] [address] Lt Brst Unilat Samson Add On MR#: [id number] Acct: [id number] Name: LUCIAN SINGLETARY Rep #: [id number] : 1980 F 44 From: Ofelia Corado MD PCP: Dr. Lesley Orourke DO Status: [facility] CLI Study:Lt Brst Unilat Samson Add On Date of Exam : 03/09/25 Exam# [id number] Ordering Dr: Kimberly Orourke sa, DO EXAM: DIAG MAMM W/CAD, UNILAT; LT BRST UNILAT SAMSON ADD ON; BREAST COMPLETE UNILATERAL 03/09/2025 CLINICAL HISTORY: 44-year-old female presents for follow-up examination for the left breast mass seen on examination of 03/07/2025. No family history of breast cancer. TECHNIQUE: DIAG MAMM W/CAD, UNILAT; LT BRST UNILAT SAMSON ADD ON; BREAST COMPLETE UNILATERAL. COMPARISON: Prior exam(s) dated 03/07/2025, 03/30/2023, 02/20/2022, 04/09/2020. FINDINGS: MAMMOGRAM: TISSUE DENSITY: The breasts are heterogeneously dense, which may obscure small masses. Unilateral Left Breast Mammographic Findings: Follow-up examination performed for the left breast mass seen on examination of 03/07/2025. On the present examination, there is an irregular high density mass in the lower inner left breast at posterior depth. ULTRASOUND: 1. There is an irregular hypoechoic mass with spiculated margins in the left breast at 6:30 o'clock 9 cm from the nipple, measuring 1.9 x 1.5 x 0.8 cm. There is associated internal vascular flow. Thisis the correlate for the mammographic finding. 2. There is an irregular hypoechoic mass in the left breast at 1 o'clock 8 cm from the nipple, measuring 2.1 x 1.7 x 1.0 cm. There is associated internal vascular flow. This appears morphologically similar to the mass in the left breast at 6:30 o'clock. 3. There are 2 intraductal masses with associated vascular flow in the left breast at 10 o'clock 5 cm from the nipple measuring 0.4 x 0.4 x 0.2 cm and at 10:30 o'clock 5 cm from the nipple measuring 0.3 x 0.3x 0.2 cm. 4. There are at least 3 abnormal left axillary lymph nodes. There is a left axillary lymph node with a focal cortical bulge measuring 1.7 x 1.2 x 1.3 cm and cortical thickness of 0.4 cm. There is an abnormal left axillary lymph node with loss of the fatty kendrick measuring 0.9 x 0.8 x 0.9 cm. There is another abnormal left axillary lymph node with diffuse cortical thickening and effacement of the fatty hilum measuring 1.8 x 1.8 x 0.9 cm and cortical thickness of 0.7 cm. 5. The remainder of the left breast was imaged demonstrating multiple scatteredcysts, also the previously biopsied mass at 12 o'clock 4 cm from the nipple with an associated biopsy marker clip. BI/Lt Brst Unilat Samson Add On IMPRESSION: 1. Left breast mass at 6:30 o'clock is highly suggestive for malignancy. Recommend tissue sampling with ultrasound-guided biopsy. 2. Left breast mass at 1 o'clock is suspicious. Recommend tissue sampling withultrasound-guid ed biopsy. 3. Left breast intraductal masses at 10 o'clock and 10:30 o'clock are suspicious. Recommend tissue sampling of 1 of these masses with ultrasound-guided biopsy. 4. Abnormal left axillary lymph nodes are suspicious. Recommend tissue sampling with ultrasound-guided biopsy. OVERALL FINAL ASSESSMENT BI-RADS 5: HIGHLY SUGGESTIVE OF MALIGNANCY. RECOMMENDATION: Biopsy Recommended A letter with findings and recommendations will be mailed to the patient. Reading Location: [id number] CC: Dr. Lesley Orourke DO ~ Parts Product Analyst: Signed [facility] DIAG MAMM W/CAD, UNILATon DIAG MAMM W/CAD, UNILAT [facility] [address] [place] [address] DIAG MAMM W/CAD, UNILAT MR#: [id number] Acct: [id number] Name: LUCIAN SINGLETARY Rep #: [id number] : 1980 F 44 From: Jojo Corado MD PCP: Dr. Lesley Orourke DO Status: REG CLI Study: DIAG MAMM W/CAD, UNILAT Date of Exam: 03/09/25 Exam# [id number] Ordering Dr: Lesley Orourke DO EXAM: DIAG MAMM W/CAD, UNILAT; LT BRST UNILAT SAMSON ADD ON; BREAST COMPLETE UNILATERAL 03/09/2025 CLINICAL HISTORY: 44-year-old female presents for follow-up examination for the left breast mass seen on examination of 03/07/2025. No family history of breast cancer. TECHNIQUE: DIAG MAMM W/CAD, UNILAT; LT BRST UNILAT SAMSON ADD ON; BREAST COMPLETE UNILATERAL. COMPARISON: Prior exam(s) dated 03/07/2025, 03/30/2023, 02/20/2022, 04/09/2020. FINDINGS: MAMMOGRAM: TISSUE DENSITY: The breasts are heterogeneously dense, which may obscure small masses. Unilateral Left Breast Mammographic Findings: Follow-up examination performed for the left breast mass seen on examination of 03/07/2025. On the present examination, there is an irregular high density mass in the lower inner left breast at posterior depth. ULTRASOUND: 1. There is an irregular hypoechoic mass with spiculated margins in the left breast at 6:30 o'clock 9 cm from the nipple, measuring 1.9 x 1.5 x 0.8 cm. There is associated internal vascular flow. This is the correlate for the mammographic finding. 2. There is an irregular hypoechoic mass in the left breast at 1 o'clock 8 cm from the nipple, measuring 2.1 x 1.7 x 1.0 cm. There is associated internal vascular flow. This appears morphologically similar to the mass in the left breast at 6:30 o'clock. 3. There are 2 intraductal masses with associated vascular flow in the left breast at 10 o'clock 5 cm from the nipple measuring 0.4 x 0.4 x 0.2 cm and at 10:30 o'clock 5 cm from the nipple measuring 0.3 x 0.3 x 0.2 cm. 4. There are at least 3 abnormal left axillary lymph nodes. There is a left axillary lymph node with a focal cortical bulge measuring 1.7 x 1.2 x 1.3 cm and cortical thickness of 0.4 cm. There is an abnormal left axillary lymph node with loss of the fatty kendrick measuring 0.9 x 0.8 x 0.9 cm. There is another abnormal left axillary lymph node with diffuse cortical thickening and effacement of the fatty hilum measuring 1.8 x 1.8 x 0.9 cm and cortical thickness of 0.7 cm. 5. The remainder of the left breast was imaged demonstrating multiple scattered cysts, also the previously biopsied mass at 12 o'clock 4 cm from the nipple with an associated biopsy marker clip. BI/DIAG MAMM W/CAD, UNILAT IMPRESSION: 1. Left breast mass at 6:30 o'clock is highly suggestive for malignancy. Recommend tissue sampling with ultrasound-guided biopsy. 2. Left breast mass at 1 o'clock is suspicious. Recommend tissue sampling with ultrasound-guided biopsy. 3. Left breast intraductal masses at 10 o'clock and 10:30 o'clock are suspicious. Recommend tissue sampling of 1 of these masses with ultrasound-guided biopsy. 4. Abnormal left axillary lymph nodes are suspicious. Recommend tissue sampling with ultrasound- guided biopsy. OVERALL FINAL ASSESSMENT BI-RADS 5: HIGHLY SUGGESTIVE OF MALIGNANCY. RECOMMENDATION: Biopsy Recommended A letter with findings and recommendations will be mailed to the patient. Reading Location: [id number] CC: Dr. Lesley Orourke, Parts Product Analyst: Signed Normal [facility] Lt Brst Unilat Samson Add Onon 03-09-2025 Brst Unilat Samson Add On [facility] [address] [place] [address] Lt Brst Unilat Samson Add On MR#: [id number] Acct: [id number] Name: LUCIAN SINGLETARY Rep #: [id number] : 1980 F 44 From: Jojo Corado MD PCP: Dr. Lesley Orourke DO Status: [facility] CLI Study: Lt Brst Unilat Samson Add On Date of Exam: 03/09 Exam# [id number] Ordering Dr: Lesley Orourke DO EXAM: DIAG MAMM W/CAD, UNILAT; LT BRST UNILAT SAMSON ADD ON; BREAST COMPLETE UNILATERAL 03/09/2025 CLINICAL HISTORY: 44-year-old female presents for follow-up examination for the left breast mass seen on examination of 03/07/2025. No family history of breast cancer. TECHNIQUE: DIAG MAMM W/CAD, UNILAT; LT BRST UNILAT SAMSON ADD ON; BREAST COMPLETE UNILATERAL. COMPARISON: Prior exam(s) dated 03/07/2025, 03/30/2023, 02/20/2022, 04/09/2020. FINDINGS: MAMMOGRAM: TISSUE DENSITY: The breasts are heterogeneously dense, which may obscure small masses. Unilateral Left Breast Mammographic Findings: Follow-up examination performed for the left breast mass seen on examination of 03/07/2025. On the present examination, there is an irregular high density mass in the lower inner left breast at posterior depth. ULTRASOUND: 1. There is an irregular hypoechoic mass with spiculated margins in the left breast at 6:30 o'clock 9 cm from the nipple, measuring 1.9 x 1.5 x 0.8 cm. There is associated internal vascular flow. This is the correlate for the mammographic finding. 2. There is an irregular hypoechoic mass in the left breast at 1 o'clock 8 cm from the nipple, measuring 2.1 x 1.7 x 1.0 cm. There is associated internal vascular flow. This appears morphologically similar to the mass in the left breast at 6:30 o'clock. 3. There are 2 intraductal masses with associated vascular flow in the left breast at 10 o'clock 5 cm from the nipple measuring 0.4 x 0.4 x 0.2 cm and at 10:30 o'clock 5 cm from the nipple measuring 0.3 x 0.3 x 0.2 cm. 4. There are at least 3 abnormal left axillary lymph nodes. There is a left axillary lymph node with a focal cortical bulge measuring 1.7 x 1.2 x 1.3 cm and cortical thickness of 0.4 cm. There is an abnormal left axillary lymph node with loss of the fatty kendrick measuring 0.9 x 0.8 x 0.9 cm. There is another abnormal left axillary lymph node with diffuse cortical thickening and effacement of the fatty hilum measuring 1.8 x 1.8 x 0.9 cm and cortical thickness of 0.7 cm. 5. The remainder of the left breast was imaged demonstrating multiple scattered cysts, also the previously biopsied mass at 12 o'clock 4 cm from the nipple with an associated biopsy marker clip. BI/Lt Brst Unilat Samson Add On IMPRESSION: 1. Left breast mass at 6:30 o'clock is highly suggestive for malignancy. Recommend tissue sampling with ultrasound-guided biopsy. 2. Left breast mass at 1 o'clock is suspicious. Recommend tissue sampling with ultrasound-guided biopsy. 3. Left breast intraductal masses at 10 o'clock and 10:30 o'clock are suspicious. Recommend tissue sampling of 1 of these masses with ultrasound-guided biopsy. 4. Abnormal left axillary lymph nodes are suspicious. Recommend tissue sampling with ultrasound- guided biopsy. OVERALL FINAL ASSESSMENT BI-RADS 5: HIGHLY SUGGESTIVE OF MALIGNANCY. RECOMMENDATION: Biopsy Recommended A letter with findings and recommendations will be mailed to the patient. Reading Location: [id number] CC: Dr. Lesley Orourke, Parts Product Analyst: Signed Normal [facility] Breast imaging reportOrdered By: Idania Glez on 03-07-2025 Study report [facility] [address] [place] [address] SCRN MAMM (CAD)W/SAMSON BILAT MR#: [id number] Acct: [id number] Name: LUCIAN SINGLETARY Rep #: [id number] : 1980 F 44 From: Shane Pantoja MD PCP: Dr. Lesley Orourke DO Status: REG CLI Study:SCRN MAMM (CAD)W/SAMSON BILAT Date of Exa m: 03/07/25 Exam# [id number] Ordering Dr: Kimberly Orourke sa, DO EXAM: SCRN MAMM (CAD)W/SAMSON BILAT DATE: 03/07/2025 CLINICAL HISTORY: F, Age 44 y/o , SCREENING TECHNIQUE: SCRN MAMM (CAD)W/SAMSON BILAT COMPARISON: Prior exam(s) were compared FINDINGS: TISSUE DENSITY: The breasts are heterogeneously dense, which may obscure small masses. Bilateral Breast Mammographic Findings: Left breast: There is spiculated mass in the lower-inner left breast posterior depth Right breast: No suspicious masses, calcifications or other abnormalities are identified. BI/SCRN MAMM (CAD)W/SAMSON BILAT IMPRESSION: Additional diagnostic imaging is recommended of the left breast with diagnostic left breast mammogram and diagnostic ultrasound. No mammographic evidence of malignancy in the right breast OVERALL FINAL ASSESSMENT BI-RADS 0: INCOMPLETE - NEED ADDITIONAL IMAGING EVALUATION. RECOMMENDATION: Additional Views obtained/call backs A letter with findings and recommendations will be mailed to the patient. Reading Location: [id number] CC: Dr. Lesley Orourke DO ~ Parts Product Analyst: Signed [facility] SCRN MAMM (CAD)W/SAMSON BILATo n 03-07-2025 SCRN MAMM (CAD)W/SAMSON BILAT [facility] [address] [place] [address] SCRN MAMM (CAD)W/SAMSON BILAT MR#: [id number] Acct: [id number] Name: LUCIAN SINGLETARY Rep #: [id number] : 1980 F 44 From: Idania Norton i, MD PCP: Dr. Lesley Orourke DO Status: REG CLI Study: SCRN MAMM (CAD)W/SAMSON BILAT Date of Exam: 02/14 11/07 Exam# [id number] Ordering Dr: Lesley Orourke DO EXAM: SCRN MAMM (CAD)W/SAMSON BILAT DATE: 03/07/2025 CLINICAL HISTORY: F, Age 44 y/o , SCREENING TECHNIQUE: SCRN MAMM (CAD)W/SAMSON BILAT COMPARISON: Prior exam(s) were compared FINDINGS: TISSUE DENSITY: The breasts are heterogeneously dense, which may obscure small masses. Bilateral Breast Mammographic Findings: Left breast: There is spiculated mass in the lower-inner left breast posterior depth Right breast: No suspicious masses, calcifications or other abnormalities are identified. BI/SCRN MAMM (CAD)W/SAMSON BILAT IMPRESSION: Additional diagnostic imaging is recommended of the left breast with diagnostic left breast mammogram and diagnostic ultrasound. No mammographic evidence of malignancy in the right breast OVERALL FINAL ASSESSMENT BI-RADS 0: INCOMPLETE - NEED ADDITIONAL IMAGING EVALUATION. RECOMMENDATION: Additional Views obtained/call backs A letter with findings and recommendations will be mailed to the patient. Reading Location: [id number] CC: Dr. Lesley Orourke DO Parts Product Analyst: Signed Normal [facility] Calculated very low density lipoprotein (VLDL) cholesterol measurementOrdered By: Lesley Orourke on 01-24-2025 Calculated very low density lipoprotein (VLDL) cholesterol measurement 21 mg/dL 5-40 [facility] Glucoseon 01-24-2025 Glucose [Mass/Vol] 98 mg/dL Normal 70-99 [facility] Comment on above: Performed By: #### L 501.0100, L500.4100 #### [facility] [address] [place], [address] LDL calc ser/plasOrdered By: Lesley Orourke on 01-24-2025 Cholesterol in LDL [Mass/Vol] 160 mg/dL [facility] Comment on above: Yypmwczgxo=454-505 m g/dL & Higher Pqyn=782 mg/dL or greater Lipid Profileon 01-24-2025 CHOL:HDL 4.02 Normal [facility] Comment on above: Performed By: #### L 501.0100, L500.4100 #### [facility] [address] [place], [address] Cholesterol [Mass/Vol] 240 mg/dL High <=200 [facility] Comment on above: Result Comment: Chol esterol level, Desirable <200 mg/dL Borderline high cholesterol 200-239 mg/dL High cholesterol >=240 mg/dL Recommendations of the NCEP Adult Treatment Panel for the following risk-cutoff thresholds for the [place] population. Performed By: #### L 501.0100, L500.4100 #### [facility] [address] [place], [address] Cholesterol in HDL [Mass/Vol] 60 mg/dL Normal [facility] Comment on above: Result Comment: Nora onal Cholesterol Education Program (NCEP) guidelines: <40 mg/dL: Low HDL-cholesterol (major risk factor for CHD) >= 60 mg/dL: High HDL-cholesterol (negative risk factor for CHD) HDL-cholesterol is affected by a number of factors, e.g. smoking, exercise, hormones, sex and age. Performed By: #### L 501.0100, L500.4100 #### [facility] [address] [place], [address] Cholesterol in LDL [Mass/Vol] 160 mg/dL Normal [facility] Comment on above: Result Comment: Bord ygxulp=980-118 mg/dL Higher Hqwl=540 mg/dL or greater Performed By: #### L 501.0100, L500.4100 #### [facility] [address] [place], [address] Cholesterol in VLDL [Mass/Vol] 21 mg/dL Normal 5-40 [facility] Comment on above: Performed By: #### L 501.0100, L500.4100 #### [facility] [address] [place], [address] Triglyceride [Mass/Vol] 104 mg/dL Normal [facility] Comment on above: Result Comment: The drugs N-Acetylcysteine and Metamizole may falsely depress this assay. Normal range: <150 mg/dL Borderline High: 150-199 mg/dL High: 200-499 mg/dL Very High: >500 mg/dL Performed By: #### L 501.0100, L500.4100 #### [facility] [address] [place], [address] Screening total cholesterol/ high density lipoprotein (HDL) cholesterol ratioOrdered By: Lesley Orourke on 01-24-2025 Cholesterol.total/Chol esterol in HDL [Mass ratio] 4.02 {ratio} [facility] Serum glucose measurement (m ass/volume)Ordered By: Lesley Orourke on 01-24-2025 Glucose [Mass/Vol] 98 mg/dL 70-99 [facility] Serum or plasma cholesterol in HDL measurement (mass/volume)Ordered By: Lesley Orourke on 01-24-2025 Cholesterol in HDL [Mass/Vol] 60 mg/dL >40 [facility] Comment on above: National Cholesterol Education Program (NCEP) guidelines:<40 mg/dL: Low HDL-cholesterol (major risk factor for CHD)>= 60 mg/dL: High HDL-cholesterol (negative risk factor for CHD)HDL-cholesterol is affected by a number of factors, e.g. smoking, exercise, hormones, sex and age. Serum or plasma cholesterol measurement (mass/volume)Ordered By: Lesley Orourke on 01-24-2025 Cholesterol [Mass/Vol] 240 mg/dL High <201 [facility] Comment on above: Cholesterol level, D esirable <200 mg/dLBorderline high cholesterol 200-239 mg/dLHigh cholesterol >=240 mg/dLRecommendations of the NCEP Adult Treatment Panel for the following risk-cutoff thresholds for the [place] population. Triglycerides measurementOrd ered By: Lesley Orourke on 01-24-2025 Triglyceride [Mass/Vol] 104 mg/dL <199 [facility] Comment on above: The drugs N-Acetylcy steine and Metamizole may falsely depress this assay. Normal range: <150 mg/dLBorderline High: 150-199 mg/dLHigh: 200-499 mg/dLVery High: >500 mg/dL L3410.9992on 12-26-2024 [facility] Misc. COMMENT Normal . [facility] Comment on above: Order Comment: 1 NUSWAB VAGINITIS PLUS (VG+) Result Comment: Test Ordered: [id number] Nuab Vaginitis Plus (VG+) Test(s) 804478- Atopobium vaginae; 18000115- BVAB 2; 402916- Megasphaera 1 was developed and its performance characteristics determined by [facility]. It has not been cleared or approved by the Food and Drug Administration. Test(s) 613614-Awnpehl albicans, NADIA; 17991220- Liliana glabrata, NADIA was [...] Negative =G Reference Range: Negative Performed at: =G - [facility] [id number] Philosophy Faculty Member: Hanna Lopez MD, Phone: [phone] Performed at: - [facility] [id number] Philosophy Faculty Member: Camron Henson PhD, Phone: [phone] Performed By: #### L 3410.9992 #### [facility] [address] 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 Former smoker Invalid Interpretation Code [facility] Work Phone: Office Visit: right breast a bnormal u/s_left breast ?fibroadenomaon 01-25-2017 Fall risk assessment No [facility] Work Phone: Protein mass conc Done [facility] Work Phone: Protein mass conc no [facility] Work Phone: Tobacco smoking status NHIS Never [facility] Work Phone: Tobacco smoking status NHIS Former smoker [facility] Work Phone: Vital Signs Date Time Vital Sign Value Performing Clinician Facility 03-14-2025 16:47-0400 Body height 167.[address] Lesley Orourke DO Work Phone: [facility] 03-14-2025 16:47-0400 Body mass index (BMI) [Ratio] 26.2 kg/m2 Dr. Lesley Orourke DO Work Phone: [facility] 03-14-2025 16:47-0400 Body weight 73.[address] Lesley Orourke DO Work Phone: [facility] 03-14-2025 16:47-0400 Diastolic blood pressure 78 mm[Hg] Dr. Lesley Orourke DO Work Phone: [facility] 03-14-2025 16:47-0400 Systolic blood pressure 153 mm[Hg] Dr. Lesley Orourke DO Work Phone: [facility] 03-14-2025 14:56-0400 Body weight 73.[address] Lesley Orourke DO Work Phone: [facility] 03-14-2025 14:56-0400 Diastolic blood pressure 80 mm[Hg] Dr. Lesley Orourke DO Work Phone: [facility] 03-14-2025 14:56-0400 Heart rate 82 /min Dr. Lesley Orourke DO Work Phone: [facility] 03-14-2025 14:56-0400 Respiratory rate 17 /min Dr. Lesley Orourke DO Work Phone: [facility] 03-14-2025 14:56-0400 SaO2% (BldA) [Mass fraction] 98 % Dr. Lesley Orourke DO Work Phone: [facility] 03-14-2025 14:56-0400 Systolic blood pressure 129 mm[Hg] Dr. Lesley Orourke DO Work Phone: [facility] 01-25-2017 14:26-0400 BMI (Body Mass Index) 29.99 kg/m2 Loulou Vasquez RN RN [facility] Work Phone: 01-25-2017 14:26-0400 Body Temperature 98.3 [degF] Loulou Vasquez RN RN [facility] Work Phone: 01-25-2017 14:26-0400 BP Diastolic 73 mm[Hg] Loulou Vasquez RN RN [facility] Work Phone: 01-25-2017 14:26-0400 BP Systolic 124 mm[Hg] Loulou Vasquez RN RN [facility] Work Phone: 01-25-2017 14:26-0400 Height 167.64 cm Loulou Vasquez RN RN [facility] Work Phone: 01-25-2017 14:26-0400 Pulse (Heart Rate) 66 /min Loulou Vasquez RN RN [facility] Work Phone: 01-25-2017 14:26-0400 Pulse Oximetry 100 % Loulou Vasquez RN RN [facility] Work Phone: 01-25-2017 14:26-0400 Respiratory Rate 18 /min Loulou Vasquez RN RN [facility] Work Phone: 01-25-2017 14:26-0400 Weight 84.28 kg Loulou Vasquez RN RN [facility] Work Phone: Encounters Encounter Date Encounter Type Care Provider Facility Start: 03-14-2025 End: 03-14-[address] Lesley Orourke DO Work Phone: [facility] Start: 03-14-2025 End: 03-14-[address] Nicole Breen DO -[facility] Work Phone: Start: 03-14-2025 End: 03-14-2025 ambulatory Lesley Orourke Facility:[facility] Start: 03-14-2025 End: 03-14-[address] Haydee Fowler MD -[facility] Work Phone: Start: 03-09-2025 End: 03-09-[address] Lesley Orourke DO Work Phone: -[facility] Start: 03-09-2025 End: 03-09-[address] Lesley Orourke DO -[facility] Work Phone: Start: 03-09-2025 End: 03-09-2025 ambulatory Lesley Orourke Facility:[facility] Start: 03-07-2025 End: 03-07-[address] Lesley Orourke DO Work Phone: -[facility] Start: 03-07-2025 End: 03-07-[address] Lesley Orourke DO -[facility] Work Phone: Start: 03-07-2025 End: 03-07-2025 ambulatory Lesley Orourke Facility:[facility] Start: 01-24-2025 End: 01-24-[address] Lesley Orourke DO Work Phone: [facility] Work Phone: Start: 01-24-2025 End: 01-24-[address] Lesley Orourke DO -Laboratory Work Phone: Start: 01-24-2025 End: 01-24-2025 ambulatory Lesley Orourke Facility:[facility] Start: 12-22-2024 End: 12-22-[address] Lesley Orourke DO Work Phone: [facility] Work Phone: Start: 12-22-2024 End: 12-22-[address] Merle Chairez MD -Laboratory, Specimen Work Phone: Start: 12-22-2024 End: 12-22-2024 ambulatory Lesleymolly Orourke Facility:[facility] Start: 04-14-2022 End: 04-14-2022 ambulatory [facility] Work Phone: Start: 04-14-2022 End: 04-14-2022 Patient encounter procedure [facility]-Laboratory, Specimen Start: 02-20-2022 End: 02-20-2022 Patient encounter procedure [facility]patient [facility] Procedures Date Procedure Procedure Detail Performing Clinician Start: 03-09-[address] Lesley Orourke DO Work Phone: Start: 03-07-[address] Lesley Orourke DO Work Phone: Start: 12-22-[address] Lesley Orourke DO Work Phone: Comment on above: Test Ordered: [id number] NuSwab Vaginitis Pl us (VG+)Test(s) 323313- Atopobium vaginae; 632795- BVAB 2;471109- Megasphaera 1was developed and its performance characteristicsdetermined by [facility]. It has not been cleared or approvedby the Food and Drug Administration.Test(s) 027477-Fmhjooz albicans, NADIA; 456230-Htqnfoo glabrata, NAAwas developed and its performance characteristicsdetermined by [facility]. It has not been cleared or approvedby [...] =G Reference Range: NegativePerformed at: =G - [facility] [address] [id number] Director: Hanna Lopze MD, Phone: [phone] at: - [facility] [id number] Director: Camron Henson PhD, Phone: [phone] Start: 02-20-2022 Screening mammography Start: 01-25-2017 End: 01-25-2017 Dietary management education, guidance, and counseling Loulou Vasquez RN RN Plan of Treatment Date Care Activity Detail Author Start: 02-17-2017 End: 02-17-2017 Appointment Appointment [facility] [employer] Work Phone: Start: 01-25-2017 End: 01-25-2017 Appointment Appointment [facility] [employer] Work Phone: Start: 01-25-2017 End: 01-25-2017 Bx breast w/device 1st lesion ultrasound guid Bx Breast, device placement, US guidance [facility] [employer] Work Phone: Start: 01-25-2017 End: 01-25-2017 Follow Up after Imaging/labs Follow Up after Imaging/labs [facility] [employer] Work Phone: MR Breast - bilatera l WO and W contrast IV [facility] Path report.final Dx Spec [facility] Work Phone: [facility] Payers Date Payer Category Payer Self-pay [id number] 2024 Unknown [id number] 2014 [id number] Private Health Insurance [id number] Unknown [id number] [id number] [id number] Unknown [id number] [id number] [id number] Unknown [id number] [id number] [id number] Unknown [id number] 2.16.8 [id number] Unknown [id number] [id number] [id number] Social History Date Type Detail Facility Start: 05-15-2013 Tobacco smoking stat [facility] Unknown if ever smoked [facility] Work Phone: Start: 1980 Sex Assigned At Female [facility] Start: 05-15-2013 [facility] Evaluation note 03-14-2025 Note Date & Type Note Facility 03-14-2025 Evaluation note Diagnosis Onset Date Resolution Axillary lymphadenopathy acute March 14, 2025 2:39pm Left breast mass acute February 2:39pm [facility] Work Phone: Radiology Diagnostic study note 03-09-2025 Note Date & Type Note Facility 03-09-2025 Radiology Diagnostic study note [facility] [address] [place] [address] [id number] Breast Complete Unilateral MR#: [id number] Acct: [id number] Name: LUCIAN SINGLETARY Rep #: [id number] : 1980 F 44 From: Ofelia Corado MD PCP: Dr. Lesley Orourke, Status: REG CLI Study:Breast Complete Unilateral Date of Exam : 03/09/25 Exam# [id number] Ordering Dr: Kimberly Orourke sa DO EXAM: DIAG MAMM W/CAD, UNILAT; LT BRST UNILAT SAMSON ADD ON; BREAST COMPLETE UNILATERAL 03/09/2025 CLINICAL HISTORY: 44-year-old female presents for follow-up examination for the left breast mass seen on examination of 03/07/2025. No family history of breast cancer. TECHNIQUE: DIAG MAMM W/CAD, UNILAT; LT BRST UNILAT SAMSON ADD ON; BREAST COMPLETE UNILATERAL. COMPARISON: Prior exam(s) dated 03/07/2025, 03/30/2023, 02/20/2022, 04/09/2020. FINDINGS: MAMMOGRAM: TISSUE DENSITY: The breasts are heterogeneously dense, which may obscure small masses. Unilateral Left Breast Mammographic Findings: Follow-up examination performed for the left breast mass seen on examination of 03/07/2025. On the present examination, there is an irregular high density mass in the lower inner left breast at posterior depth. ULTRASOUND: 1. There is an irregular hypoechoic mass with spiculated margins in the left breast at 6:30 o'clock 9 cm from the nipple, measuring 1.9 x 1.5 x 0.8 cm. There is associated internal vascular flow. Thisis the correlate for the mammographic finding. 2. There is an irregular hypoechoic mass in the left breast at 1 o'clock 8 cm from the nipple, measuring 2.1 x 1.7 x 1.0 cm. There is associated internal vascular flow. This appears morphologically similar to the mass in the left breast at 6:30 o'clock. 3. There are 2 intraductal masses with associated vascular flow in the left breast at 10 o'clock 5 cm from the nipple measuring 0.4 x 0.4 x 0.2 cm and at 10:30 o'clock 5 cm from the nipple measuring 0.3 x 0.3x 0.2 cm. 4. There are at least 3 abnormal left axillary lymph nodes. There is a left axillary lymph node with a focal cortical bulge measuring 1.7 x 1.2 x 1.3 cm and cortical thickness of 0.4 cm. There is an abnormal left axillary lymph node with loss of the fatty kendrick measuring 0.9 x 0.8 x 0.9 cm. There is another abnormal left axillary lymph node with diffuse cortical thickening and effacement of the fatty hilum measuring 1.8 x 1.8 x 0.9 cm and cortical thickness of 0.7 cm. 5. The remainder of the left breast was imaged demonstrating multiple scatteredcysts, also the previously biopsied mass at 12 o'clock 4 cm from the nipple with an associated biopsy marker clip. US/Breast Complete Unilateral IMPRESSION: 1. Left breast mass at 6:30 o'clock is highly suggestive for malignancy. Recommend tissue sampling with ultrasound-guided biopsy. 2. Left breast mass at 1 o'clock is suspicious. Recommend tissue sampling withultrasound-guided biopsy. 3. Left breast intraductal masses at 10 o'clock and 10:30 o'clock are suspicious. Recommend tissue sampling of 1 of these masses with ultrasound-guided biopsy. 4. Abnormal left axillary lymph nodes are suspicious. Recommend tissue sampling with ultrasound-guided biopsy. OVERALL FINAL ASSESSMENT BI-RADS 5: HIGHLY SUGGESTIVE OF MALIGNANCY. RECOMMENDATION: Biopsy Recommended A letter with findings and recommendations will be mailed to the patient. Reading Location: [facility] CC: Dr. Lesley Orourke, DO ~ Parts Product Analyst: Signed [facility] Evaluation note Note Date & Type Note Facility Evaluation note No assessment information availa [facility] Work Phone: Reason for referral (narrative) Note Date & Type Note Facility Reason for referral (narrative) No reason for referral information available [facility] Work Phone: Chief Complaint and Reason for Visit Chief Complaint SCREENING Chief Complaint Admit Date screening March 07, 2025 2:44 pm LT BREAST ABN MAMM March 09, 2025 9:25 am Chief Complaint Admit Date screening March 07, 2025 2:44 pm LT BREAST ABN MAMM March 09, 2025 9:25 am birads 5 March 14, 2025 2:39 pm Chief Complaint Admit Date screening March 07, 2025 2:44 pm LT BREAST ABN MAMM March 09, 2025 9:25 am birads 5 March 14, 2025 2:39 pm Liletta Removal *ok per JV March 14 4:42pm Reason for Visit Admit Date Axillary lymphadenopathy March 14, 2025 2:39pm Left breast mass March 14, 2025 2:39 pm Summary Purpose Family History Relationship Condition Age at Onset Recorded Date/T kiki father Hypertension Unknown mother Cardiac disease Unknown Hypertension Unknown brother Diabetes mellitus Unknown Advance Directives No Advanced Directives Records Found [...] January 24, 2025 End: January 24, 2025 Team Status: Active Member Role/Relationship Status Dates Dr. Lesley Orourke DO Primary Care Provider Active Team Status: Inactive Member Role/Relationship Status Dates Dr. Lesley Orourke DO Primary Care Provider Active Start: December 22, 2024 End: December 22, 2024 Dr. Merle Chairez MD Attending Provider Active Start: December 22, 2024 End: December 22, 2024 Dr. Merle Chairez MD Referring Provider Active Start: December 22, 2024 End: December 22, 2024 Team Status: Inactive Member Role/Relationship Status Dates Dr. Lesley Orourke DO Primary Care Provider Active Start: January 24, 2025 End: January 24, 2025 Dr. Lesley Orourke DO Attending Provider Active St art: January 24, 2025 End: January 24, 2025 Dr. Lesley Orourke DO Referring Provider Active St art: January 24, 2025 End: January 24, 2025 Team Status: Inactive Member Role/Relationship Status Dates Dr. Lesley Orourke DO Primary Care Provider Active Start: March 07, 2025 End: March 07, 2025 Dr. Lesley Orourke DO Attending Provider Active St art: March 07, 2025 End: March 07, 2025 Dr. Lesley Orourke DO Referring Provider Active St art: March 07, 2025 End: March 07, 2025 Team Status: Active Member Role/Relationship Status Dates Dr. Lesley Orourke DO Primary Care Provider Active Start: March 09, 2025 Dr. Lesley Orourke DO Attending Provider Active St art: March 09, 2025 Dr. Lesley Orourke DO Referring Provider Active St art: March 09, 2025 Team Status: Inactive Member Role/Relationship Status Dates Dr. Lesley Orourke DO Primary Care Provider Active Start: March 09, 2025 End: March 09, 2025 Dr. Lesley Orourke DO Attending Provider Active St art: March 09, 2025 End: March 09, 2025 Dr. Lesley Orourke DO Referring Provider Active St art: March 09, 2025 End: March 09, 2025 Team Status: Inactive Member Role/Relationship Status Dates Dr. Lesley Orourke DO Primary Care Provider Active Start: March 14, 2025 End: March 14, 2025 Dr. Lesley Orourke DO Referring Provider Active St art: March 14, 2025 End: March 14, 2025 Dr. Haydee Fowler MD Attending Provider Active Start: March 14, 2025 End: March 14, 2025 Team Status: Inactive Member Role/Relationship Status Dates Dr. Lesley Orourke DO Primary Care Provider Active Start: March 14, 2025 End: March 14, 2025 Dr. Lesley Orourke DO Referring Provider Active St art: March 14, 2025 End: March 14, 2025 Dr. Nicole Breen DO Attending Provider Activ e Start: March 14, 2025 End: March 14, 2025 INFORMATION SOURCE (unrecogn ized section and content) DATE CREATED AUTHOR 03/14/2025 [facility] FOR RECORDS PERTAINING TO PATIENTS [...] BE BASED ON THE PRIMARY CLINICAL RECORDS. [facility] [employer] [facility]. provides no warranty or guarantee of the accuracy or completeness of information in this document.
== END 2025-03-15 23:59 | disposition home or self-care (01) ==
LOC: LAB 10:12
PROVIDERS: PCP Family Medicine; Referring Provider Obstetrics & Gynecology; Visit Provider Obstetrics & Gynecology
DX: N63.20 Unspecified lump in the left breast, unspecified quadrant (principal); R59.0 Localized enlarged lymph nodes; Z85.3 Personal history of malignant neoplasm of breast
CPT/HCPCS: 36415; 88305; 88341; 88342

== ENCOUNTER → 2025-03-21 | Outpatient (CLI) | payer OTHER, SELFPAY ==
--- NOTE | 2025-03-21 11:03 | MRI_ITS ---
PROCEDURE: BREAST BILATERAL W/O AND W 03/21/2025 REASON FOR EXAM: 44-year-old female with left breast cancer (invasive ductal carcinoma and shayd metastatic disease) presents for diagnostic MRI of the breast. TECHNIQUE: BREAST BILATERAL W/O AND W CONTRAST: 15 mL of IV Clariscan COMPARISON: Mammogram and ultrasound 03/09/2025. Mammogram 03/07/2025, 03/30/2023, 02/20/2022. FINDINGS: TISSUE DENSITY: The breasts are heterogeneously dense, which may obscure small masses. Background Parenchymal Enhancement: Mild RIGHT Breast: There is a mildly enhancing mass in the upper-outer right breast at middle depth, measuring 1.6 x 0.9 x 1.7 cm AP by TR by [facility] (series [id number] image 141, series 8 image 19). This mass demonstrates progressive enhancement when compared to delayed images. LEFT Breast: 1. There is an irregular enhancing mass with an associated biopsy marker clip in the upper-outer left breast at posterior depth at 1 o'clock 8 cm from the nipple, measuring 2.2 x 2.1 x 1.7 cm AP by TR by [facility] (series [id number] image 104, series 7, image 12). Marker clip centrally there is linear non-mass enhancement extending 1.5 cm inferior and 2.0 cm anterior to the mass. The mass abuts the underlying pectoralis muscle, however there appears to be a preserved fat plane. There is no definite evidence of abnormal enhancement in the underlying pectoralis muscle. This is consistent with the biopsy-proven malignancy at 1 o'clock 8 cm from the nipple. 2. There is an irregular enhancing mass with an associated biopsy marker clip in the lower inner left breast at posterior depth at 6:30 o'clock 9 cm from the nipple, measuring 2.3 x 1.4 x 2.0 cm AP by TR by [facility] (series [id number] image 203, series 7 image 18). This mass is approximately 0.6 cm from the underlying pectoralis muscle. This is consistent with the biopsy-proven malignancy at 630/7 o'clock 9 cm from the nipple. 3. There are 2 other subcentimeter enhancing masses in the upper-outer left breast, medial to the mass at 1 o'clock 8 cm from the nipple. The masses measure up to 0.9 cm (series [id number], image 135) and 0.5 cm (series [id number], image 115). These masses are suspicious for satellite lesions. 4. There is a 1.7 cm enhancing mass in the upper-outer left breast at anterior depth with an associated biopsy marker clip. This mass has been mammographically stable on multiple priors dating back to 2021 and is considered benign. Other Findings: There is left axillary lymphadenopathy, with a biopsy marker clip associated with an enlarged abnormal lymph node measuring 1.9 x 1.2 x 1.6 cm (series [id number], image 58), this is consistent with the biopsy-proven shady metastatic disease. There is at least 1 prominent right axillary lymph node measuring 0.9 x 0.8 cm (series [id number], image 69). There are no suspicious internal mammary lymph nodes. Visualized portions of the thoracic and abdominal viscera are unremarkable. MRI/Breast Bilateral W/O and W IMPRESSION: 1. Irregular enhancing mass in the left breast at 1 o'clock, is consistent wit h the biopsy-proven malignancy. The mass abuts the underlying pectoralis muscle, without evidence of underlying enhancement of the pectoralis. There are additional subcentimeter enhancing masses in the adjacent breast tissues in the upper-oute r quadrant, which are suspicious for satellite lesions. 2. Irregular enhancing mass in the left breast at 630/7 o'clock, is consistent with the biopsy-proven malignancy. The mass is 0.6 cm from the underlying pectoralis muscle. 3. Left axillary lymphadenopathy, with an associated biopsy marker clip with a n enlarged abnormal left axillary lymph node. This is consistent with the biopsy-proven shady metastatic disease. 4. There is an enhancing mass in the upper-outer right breast at middle depth that is indeterminate. Also, there is a prominent right axillary lymph node. Recommend second-look ultrasound of the right breas t and right axilla with subsequent ultrasound-guided biopsy if indicated. If no sonographic correlate is visualiz ed, this mass is amenable to MRI guided biopsy. OVERALL FINAL ASSESSMENT BI-RADS 6: KNOWN BIOPSY-PROVEN MALIGNANCY. RECOMMENDATION: Ultrasound Recommended Reading Location: [facility]
--- OUTSIDE RECORDS SUMMARY | 2025-03-21 14:05 | XMS RPT_ITS | CCD ---
Author Organization [facility] ion [facility] Care Team Providers Care Pl Sql Developer Name Role Phone Haydee Fowler MD Unavailable MATTHEW Vasquez RN, Loulou Foote Unavailable Unavailabl e MATTHEW Vasquez RN, Loulou A Unavailable Unavailabl e Dr. Lesley Orourke DO Primary Care Provider Contreras MONTGOMERY, Dr. Bloom Attending Provider [phone] Dr. Merle Chairez MD Referring Provider [phone] Dr. Lesley Orourke DO Attending Provider Dr. Lesley Orourke DO Referring Provider Dr. Haydee Fowler MD Attending Provider [phone] Dr. Nicole Breen DO Attending Provider Haydee Fowler Attending Unavailable Chalino Fowlerera Referring Unavailable Malys, Lesley Primary Care Unavailable Malys, Lesley Primary Care Unavailable Merle Chairez Attending Unavailable Merle Chairez Referring Unavailable Haydee Fowler Attending Unavailable Malys, Lesley Referring Unavailable Malys, Lesley Primary Care Unavailable Nicole Breen Attending Unavailabl e Malys, Lesley Referring Unavailable Malys, Lesley Primary Care Unavailable Malys, Lesley Primary Care Unavailable Malys, Lesley Attending Unavailable Malys, Lesley Referring Unavailable Malys, Lesley Primary Care Unavailable Malys, Lesley Attending Unavailable Malys, Lesley Referring Unavailable Malys, Lesley Primary Care Unavailable Malys, Lesley Attending Unavailable Malys, Lesley Referring Unavailable Nicole Breen Attending Nicole Bowser Referring Mary ChunarLesley Primary Care Unavailable Allergies Allergy Classification Reported Allergen(s) Allergy Type Date of Onset Reaction(s) Facility (3 sources) sulfADIAZINE drug allergy 7 [facility] Work Phone: (2 sources) Sulfonamides (Antibiotic) Allergy to substance 5 [facility] (1 source) Sulfonamides (Antibiotic) Drug allergy (disorder) [address] [place] [address] Repository Medications Completed/Discontinued Medications Medication Drug Class(es) Dates Sig (Normalized) Sig (Original) Drug Treatment Unknown - unknown (3 sources) No information available. Problems Problem Classification Problem Date Documented Date Episodic/Chronic Cancer of breast (1 source) Personal history of malignant neoplasm of breast; Translations: [Personal history of malignant neoplasm of breast] Onset: 03-15-2025 Episodic Contraceptive and procreative management (1 source) Intrauterine contraceptive device in situ; Translations: [Presence of (intrauterine) contraceptive device] 03-14-2025 Episodic Immunizations and screening for infectious disease (1 source) Encounter for screening for infections with a predominantly sexual mode of transmission; Translations: [Encounter for screening for infections with a predominantly sexual mode of transmission] Onset: 01-15-2025 Episodic Lymphadenitis (3 sources) Axillary lymphadenopathy; Translations: [Localized enlarged lymph nodes] Onset: 03-15-2025 03-14-2025 Episodic Comment on above: Left suspicious for mets Nonmalignant breast conditions (16 sources) Breast lump; Translations: [Unspecified lump in [...] Test Name Value Interpretation Reference Range Facility [facility] 03-15-2025 PAULA SEE SCANNED REPORT Normal [facility] Comment on above: Performed By: #### L 900.0098 #### [facility] [address] [place], [address] Telecommunications Operator Office Visit Reporton 03-14-2025 Telecommunications Operator Office Visit Report [facility] [address], [address] [place] [address] OFFICE VISIT Date of Service: 03/14/25 MR#: [id number] Acct: [id number] Name: LUCIAN SINGLETARY Rep #: [id number] : 1980 Provider: Dr. Nicole Cornejo DO Age/Sex: 44/F [place] [facility] [place]: Signed Intake Vital Signs 03/14/25 16:47 Height 5 ft 6 in Weight: 162 lb 6 oz BMI 26.2 BP 153/78 H Intake Visit Reasons: Liletta Removal *ok per JV Manager Training Required: No Is patient in pain?: No Allergies Sulfa (Sulfonamide Antibiotics) Allergy (Mild, Verified 03/14/25 16:47) Rash Medications ???Medication ???Instructions ???Recorded ???Confirmed ???Type NK 03/14/25 03/14/25 History Post menopausal: No Patient : No : No PFSH Surgical History H/O breast biopsy Family History Father Hypertension Mother Heart disease a fib Hypertension Brother Diabetes Social History Smoking Status: Former smoker HPI Liletta Removal *ok per JV Details: LUCIAN SINGLETARY is a 44 year old who presents for IUD removal. She just came down from Dr. Fowler's office for a breast biopsy that is highly suspicious for breast cancer. She has a liletta IUD that was placed 5 years ago. Her paps are up to date. last done in [address] Licona ([facility]). Her first menses was at age 13, first live born child age 19. She denies family history of breast or ovarian cancer. mammogram showed the following: DIAG MAMM W/CAD, UNILAT; LT BRST UNILAT [...] ASSESSMENT BI-RADS 5: HIGHLY SUGGESTIVE OF MALIGNANCY. ROS Const ROS Unobtainable: All systems reviewed are unremarkable except as noted in H Resp Resp: Reports system reviewed and no additional complaints, except as documented; Denies cough GI GI: Reports as per HPI Psych Psych: Reports system reviewed and (more content not included)... Normal [facility] Surgery Visit Reporton 03-14 Surgery Visit Report [facility] [address] [place] [address] OFFICE VISIT Date of Service: 03/14/25 MR#: [id number] Acct: [id number] Name: LUCIAN SINGLETARY Rep #: [id number] : 1980 Provider: Dr. Haydee minaya MD Age/Sex: 44/F Location: [facility] Status: Signed Intake Vital Signs 03/14/25 14:56 Weight: 163 lb BP 129/80 H Blood Pressure Location Rt brachial Position Sitting Respiration 17 Pulse 82 Pulse Source Monitor Pulse Oximetry (%) 98 Oxygen Delivery Method room air Intake Visit Reasons: birads 5 Chief Complaint: birads 5 Accompanied by: Is patient in pain?: No Allergies Sulfa (Sulfonamide Antibiotics) Allergy (Mild, Verified 03/14/25 16:47) Rash Medications ???Medication ???Instructions ???Recorded ???Confirmed ???Type NK 03/14/25 03/14/25 History PFSH Surgical History (Updated 03/14/25 @ 14:55 by Telma Purvis) H/O breast biopsy Family History (Updated 03/14/25 @ 14:56 by Telma Purvis) Father Hypertension Mother Heart disease a fib Hypertension Brother Diabetes Social History Smoking Status: Former smoker HPI HPI HPI: 44-year-old female presents due to abnormal mammogram and ultrasound. Patient states she noticed increased pain in her left breast as she has been working out more and wearing a sports bra. Patient also had some weight loss which noticed that her breasts are normally lumpy but they are more pronounced after the weight loss with the new pain. Mammogram and ultrasound results below. Patient does currently have an IUD in. Age of menses 13, age of of first child 19, no family history of breast cancer, 2 previous breast biopsies fibroadenoma bilateral breast in 2014 and 2017???times 2 repeat of the 1 from 2015- no nipple discharge. - MAMMOGRAM: TISSUE DENSITY: The breasts are heterogeneously [...] HIGHLY SUGGESTIVE OF MALIGNANCY. RECOMMENDATION: Biopsy Recommended ROS General General: Yes weight change and fatigue; No appetite, colon cancer or breast cancer Additional Details: wt loss intentional HEENT HEENT: No difficulty swallowing, eye injury, eye surgery, swollen glands or hoarseness Endo Endocrine: No thyroid disease, diabetes mellitus, thyroid cancer, Hair loss, heat intolerance or cold intolerance Skin Skin: No rash or changing moles Breast Breast: Yes left breast lump, breast (more content not included)... Normal [facility] Breast Complete Unilateralon 03-09-2025 Breast Complete Unilateral [facility] Imaging Services [address] [place] [address] Breast Complete Unilateral MR#: [id number] Acct: [id number] Name: LUCIAN SINGLETARY Rep #: [id number] : 1980 F 44 From: Jojo Corado MD PCP: Dr. Lesley Orourke, DO Status: [facility] CLI Study: Breast Complete Unilateral Date of Exam: 03/09 Exam# [id number] Ordering Dr: Lesley Orourke DO EXAM: DIAG [...] HEALTH [place] CC: Dr. Lesley Orourke DO Guillotine Trimmer: Signed Normal [facility] Breast imaging reportOrdered By: Jojo Corado on 03-09-2025 Study report [facility] Imaging Services [address] [place], [place] [address] DIAG MAMM W/CAD, UNILAT MR#: [id number] Acct: [id number] Name: LUCIAN SINGLETARY Rep #: [id number] : 1980 F 44 From: Ofelia Corado MD PCP: Dr. Lesley Orourke DO Status: REG CLI Study:DIAG MAMM W/CAD, UNILAT Date of Exam: 03/09/25 Exam# [id number] Ordering Dr: Kimberly Orourke sa, DO EXAM: [...] [place]ERAW CC: Dr. Lesley Orourke DO ~ Guillotine Trimmer: Signed [facility] Study report [facility] Imaging Services [address] [place] [address] Lt Brst Unilat Samson Add On MR#: [id number] Acct: [id number] Name: LUCIAN SINGLETARY Rep #: [id number] : 1980 F 44 From: Ofelia Corado MD PCP: Dr. Lesley Orourke DO Status: [facility] Study:Lt Brst Unilat Samson Add On Date of Exam : 03/09/25 Exam# [id number] Ordering Dr: Kimberly Orourke sa, DO EXAM: [...] [place]ERAW CC: Dr. Lesley Orourke DO ~ Guillotine Trimmer: Signed [facility] DIAG MAMM W/CAD, UNILATon DIAG MAMM W/CAD, UNILAT [facility] Imaging Services [address] [place] [address] DIAG MAMM W/CAD, UNILAT MR#: [id number] Acct: [id number] Name: LUCIAN SINGLETARY Rep #: [id number] : 1980 F 44 From: Jojo Corado MD PCP: Dr. Lesley Orourke DO Status: [facility] CLI Study: DIAG MAMM W/CAD, UNILAT Date of Exam: 03/09/25 Exam# [id number] Ordering Dr: Lesley Orourke DO EXAM: DIAG [...] HEALTH [place] CC: Dr. Lesley Orourke DO Guillotine Trimmer: Signed Normal [facility] Lt Brst Unilat Samson Add Onon 03-09-2025 Lt Brst Unilat Samson Add On [facility] Imaging Services [address] [place], [place] [address] Lt Brst Unilat Samson Add On MR#: [id number] Acct: [id number] Name: LUCIAN SINGLETARY Rep #: [id number] : 1980 F 44 From: Jojo Corado MD PCP: Dr. Lesley Orourke DO Status: REG CLI Study: Lt Brst Unilat Samson Add On Date of Exam: 03/09 Exam# [id number] Ordering Dr: Lesley Orourke DO EXAM: DIAG [...] be mailed to the patient. Reading Location: [id number] CC: Dr. Lesley Orourke, Guillotine Trimmer: Signed Normal [facility] Breast imaging reportOrdered By: Idania Glez on 03-07-2025 Study report [facility] Imaging Services [address] [place] [address] SCRN MAMM (CAD)W/SAMSON BILAT MR#: [id number] Acct: [id number] Name: LUCIAN SINGLETARY Rep #: [id number] : 1980 F 44 From: Shane Pantoja MD PCP: Dr. Lesley Orourke DO Status: REG CLI Study:SCRN MAMM (CAD)W/SAMSON BILAT Date of Exa m: 03/07/25 Exam# [id number] Ordering Dr: Kimberly Orourke sa, DO EXAM: [...] be mailed to the patient. Reading Location: [id number] CC: Dr. Lesley Orourke DO ~ Guillotine Trimmer: Signed [facility] SCRN MAMM (CAD)W/SAMSON BILATo n 03-07-2025 SCRN MAMM (CAD)W/SAMSON BILAT [facility] Imaging Services [address] [place] [address] SCRN MAMM (CAD)W/SAMSON BILAT MR#: [id number] Acct: [id number] Name: LUCIAN SINGLETARY Rep #: [id number] : 1980 F 44 From: Idania Norton i, MD PCP: Dr. Lesley Orourke DO Status: [facility] CLI Study: SCRN MAMM (CAD)W/SAMSON BILAT Date of Exam: 02/14 11/07 Exam# [id number] Ordering Dr: eLsley Orourke DO EXAM: SCRN MAMM (CAD)W/SAMSON BILAT [...] be mailed to the patient. Reading Location: [id number] CC: Dr. Lesley Orourke DO Guillotine Trimmer: Signed Normal [facility] Calculated very low density lipoprotein (VLDL) cholesterol measurementOrdered By: Lesley Orourke on 01-24-2025 Calculated very low density lipoprotein (VLDL) cholesterol measurement 21 mg/dL 5-40 [facility] Glucoseon 01-24-2025 Glucose [Mass/Vol] 98 mg/dL Normal 70-99 [facility] Comment on above: Performed By: #### L 501.0100, L500.4100 #### [facility] [address] [place], [place], [address] LDL calc ser/plasOrdered By: Lesley Orourke on 01-24-2025 Cholesterol in LDL [Mass/Vol] 160 mg/dL [facility] Comment on above: Qbmettlvpj=332-470 m g/dL & Higher Ynkx=264 mg/dL or greater Lipid Profileon 01-24-2025 CHOL:HDL 4.02 Normal [facility] Comment on above: Performed By: #### L 501.0100, L500.4100 #### [facility] [address] [place], [address] Cholesterol [Mass/Vol] 240 mg/dL High <=200 [facility] Comment on above: Result Comment: Chol esterol level, Desirable <200 mg/dL Borderline high cholesterol 200-239 mg/dL High cholesterol >=240 mg/dL Recommendations of the NCEP Adult Treatment Panel for the following risk-cutoff thresholds for the [place] population. Performed By: #### L 501.0100, L500.4100 #### [facility] [address] [place], [address] Cholesterol in HDL [Mass/Vol] 60 mg/dL Normal [facility] Comment on above: Result Comment: Nora onal Cholesterol Education Program (NCEP) guidelines: <40 mg/dL: Low HDL-cholesterol (major risk factor for CHD) >= 60 mg/dL: High HDL-cholesterol (negative risk factor for CHD) HDL-cholesterol is affected by a number of factors, e.g. smoking, exercise, hormones, sex and age. Performed By: #### L 501.0100, L500.4100 #### [facility] [address] [place], [address] Cholesterol in LDL [Mass/Vol] 160 mg/dL Normal [facility] Comment on above: Result Comment: Bord obpgrr=852-444 mg/dL Higher Vqpp=637 mg/dL or greater Performed By: #### L 501.0100, L500.4100 #### [facility] [address] [place], [address] Cholesterol in VLDL [Mass/Vol] 21 mg/dL Normal 5-40 [facility] Comment on above: Performed By: #### L 501.0100, L500.4100 #### [facility] [address] [place], [place], [address] Triglyceride [Mass/Vol] 104 mg/dL Normal [facility] Comment on above: Result Comment: The drugs N-Acetylcysteine and Metamizole may falsely depress this assay. Normal range: <150 mg/dL Borderline High: 150-199 mg/dL High: 200-499 mg/dL Very High: >500 mg/dL Performed By: #### L 501.0100, L500.4100 #### [facility] [address] [place], [place], [address] Screening total cholesterol/ high density lipoprotein (HDL) cholesterol ratioOrdered By: Lesley Orourke on 01-24-2025 Cholesterol.total/Chol esterol in HDL [Mass ratio] 4.02 {ratio} [facility] Serum glucose measurement (m ass/volume)Ordered By: Lesley Orourke on 01-24-2025 Glucose [Mass/Vol] 98 mg/dL 70-99 [facility] Serum or plasma cholesterol in HDL measurement (mass/volume)Ordered By: Lesley Orourke on 01-24-2025 Cholesterol in HDL [Mass/Vol] 60 mg/dL >40 [facility] Comment on above: National Cholesterol Education Program (NCEP) guidelines:<40 mg/dL: Low HDL-cholesterol (major risk factor for CHD)>= 60 mg/dL: High HDL-cholesterol (negative risk factor for CHD)HDL-cholesterol is affected by a number of factors, e.g. smoking, exercise, hormones, sex and age. Serum or plasma cholesterol measurement (mass/volume)Ordered By: Lesley Orourke on 01-24-2025 Cholesterol [Mass/Vol] 240 mg/dL High <201 [facility] Comment on above: Cholesterol level, D esirable <200 mg/dLBorderline high cholesterol 200-239 mg/dLHigh cholesterol >=240 mg/dLRecommendations of the NCEP Adult Treatment Panel for the following risk-cutoff thresholds for the [place] population. Triglycerides measurementOrd ered By: Lesley Orourke on 01-24-2025 Triglyceride [Mass/Vol] 104 mg/dL <199 [facility] Comment on above: The drugs N-Acetylcy steine and Metamizole may falsely depress this assay. Normal range: <150 mg/dLBorderline High: 150-199 mg/dLHigh: 200-499 mg/dLVery High: >500 mg/dL L3410.9992on 12-26-2024 [facility]. COMMENT Normal . [facility] Comment on above: Order Comment: [id number] NUSWAB VAGINITIS PLUS (VG+) Result Comment: Test Ordered: [id number] Nuab Vaginitis Plus (VG+) Test(s) 530766- Atopobium vaginae; 853540- BVAB 2; 424386- Megasphaera 1 was developed and its performance characteristics determined by [facility]. It has not been cleared or approved by the Food and Drug Administration. Test(s) 704983-Cxvdtsd albicans, NADIA; 17991220- Liliana glabrata, NADIA was developed and its performance characteristics determined by [facility]. 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 Tobacco use CPHS Former smoker Invalid Interpretation Code [facility] Work Phone: Office Visit: right breast a bnormal u/s_left breast ?fibroadenomaon 01-25-2017 Fall risk assessment No [facility] Work Phone: Protein mass conc Done [facility] [employer] Work Phone: Protein mass conc no [facility] [employer] Work Phone: Tobacco smoking status NHIS Never [facility] Work Phone: Tobacco smoking status NHIS Former smoker [facility] [employer] Work Phone: Vital Signs Date Time Vital Sign Value Performing Clinician Facility 03-14-2025 16:47-0400 Body height 167.[address] Lesley Orourke DO Work Phone: [facility] 03-14-2025 16:47-0400 Body mass index (BMI) [Ratio] 26.2 kg/m2 Dr. Lesley Orourke DO Work Phone: [facility] 03-14-2025 16:47-0400 Body weight 73.[address] Lesley Orourke DO Work Phone: [facility] 03-14-2025 16:47-0400 Diastolic blood pressure 78 mm[Hg] Dr. Lesley Orourke DO Work Phone: [facility] 03-14-2025 16:47-0400 Systolic blood pressure 153 mm[Hg] Dr. Lesley Orourke DO Work Phone: [facility] 03-14-2025 14:56-0400 Body weight 73.[address] Lesley Orourke DO Work Phone: [facility] 03-14-2025 14:56-0400 Diastolic blood pressure 80 mm[Hg] Dr. Lesley Orourke DO Work Phone: [facility] 03-14-2025 14:56-0400 Heart rate 82 /min Dr. Lesley Orourke DO Work Phone: [facility] 03-14-2025 14:56-0400 Respiratory rate 17 /min Dr. Lesley Orourke DO Work Phone: [facility] 03-14-2025 14:56-0400 SaO2% (BldA) [Mass fraction] 98 % Dr. Lesley Orourke DO Work Phone: [facility] 03-14-2025 14:56-0400 Systolic blood pressure 129 mm[Hg] Dr. Lesley Orourke DO Work Phone: [facility] 01-25-2017 14:26-0400 BMI (Body Mass Index) 29.99 kg/m2 Loulou Vasquez RN RN [facility] Work Phone: 01-25-2017 14:26-0400 Body Temperature 98.3 [degF] Loulou Vasquez RN RN [facility] Work Phone: 01-25-2017 14:26-0400 BP Diastolic 73 mm[Hg] Loulou Vasquez RN RN [facility] Work Phone: 01-25-2017 14:26-0400 BP Systolic 124 mm[Hg] Loulou Vasquez RN RN [facility] Work Phone: 01-25-2017 14:26-0400 Height 167.64 cm Loulou Vasquez RN RN [facility] Work Phone: 01-25-2017 14:26-0400 Pulse (Heart Rate) 66 /min Loulou Vasquez RN RN [facility] Work Phone: 01-25-2017 14:26-0400 Pulse Oximetry 100 % Loulou Vasquez RN RN [facility] Work Phone: 01-25-2017 14:26-0400 Respiratory Rate 18 /min Loulou Vasquez RN RN [facility] Work Phone: 01-25-2017 14:26-0400 Weight 84.28 kg Loulou Vasquez RN RN [facility] Work Phone: Encounters Encounter Date Encounter Type Care Provider Facility Start: 03-21-2025 ambulatory Haydee Turk y:[facility] Start: 03-15-2025 ambulatory Nicole Pantoja cility:[facility] Start: 03-14-2025 End: 03-14-[address] Nicole Breen DO -[facility] Work Phone: Start: 03-14-2025 End: 03-14-[address] Lesley Orourke DO Work Phone: -[facility] Start: 03-14-2025 End: 03-14-[address] Haydee Fowler MD -[facility] Work Phone: Start: 03-14-2025 End: 03-14-[address] Lesley Orourke DO Work Phone: -[facility] Start: 03-09-2025 End: 03-09-[address] Lesley Orourke DO Work Phone: -[facility] Start: 03-09-2025 End: 03-09-[address] Lesley Orourke DO -[facility] Work Phone: Start: 03-09-2025 End: 03-09-2025 ambulatory Lesley Orourke Facility:[facility] Start: 03-07-2025 End: 03-07-[address] Lesley Orourke DO Work Phone: -[facility] Start: 03-07-2025 End: 03-07-[address] Lesley Orourke DO -[facility] Work Phone: Start: 03-07-2025 End: 03-07-2025 ambulatory Lesley Orourke Facility:[facility] Start: 01-24-2025 End: 01-24-[address] Lesley Orourke DO Work Phone: [facility] Work Phone: Start: 01-24-2025 End: 01-24-[address] Lesley Orourke DO -Laboratory Work Phone: Start: 01-24-2025 End: 01-24-[facility] Start: 12-22-2024 End: 12-22-[address] Lesley Orourke DO Work Phone: [facility] Work Phone: Start: 12-22-2024 End: 12-22-[address] Merle Chairez MD -Laboratory, Specimen Work Phone: Start: 12-22-2024 End: 12-22-2024 [facility] Start: 04-14-2022 End: 04-14-2022 ambulatory [facility] Work Phone: Start: 04-14-2022 End: 04-14-2022 Patient encounter procedure [facility]-Laboratory, Specimen Start: 02-20-2022 End: 02-20-2022 Patient encounter procedure [facility]patient [facility] Imaging Procedures Date Procedure Procedure Detail Performing Clinician Start: 03-09-[address] Lesley Orourke DO Work Phone: Start: 03-07-[address] Lesley Orourke DO Work Phone: Start: 12-22-[address] Lesley Orourke DO Work Phone: Comment on above: Test Ordered: [id number] Nuab Vaginitis Pl us (VG+)Test(s) 826087- Atopobium vaginae; 083736- BVAB 2;109917- Megasphaera 1was developed and its performance characteristicsdetermined by [facility]. It has not been cleared or approvedby the Food and Drug Administration.Test(s) 525027-Pdcolvt albicans, NADIA; 223263-Ohvkwqy glabrata, NAAwas developed and its performance characteristicsdetermined by [facility]. It has not been cleared or approvedby [...] NADIA Negative =G Reference Range: NegativePerformed at: = - Lab[address] [id number] Director: Hanna Lopez MD, Phone: [phone] at: [address] [id number] Director: Camron Henson PhD, Phone: [phone] Start: 02-20-2022 Screening mammography Start: 01-25-2017 End: 01-25-2017 Dietary management education, guidance, and counseling Loulou Vasquez RN RN Plan of Treatment Date Care Activity Detail Author Start: 02-17-2017 End: 02-17-2017 Appointment Appointment [facility] [employer] Work Phone: Start: 01-25-2017 End: 01-25-2017 Appointment Appointment [facility] [employer] Work Phone: Start: 01-25-2017 End: 01-25-2017 Bx breast w/device 1st lesion ultrasound guid Bx Breast, device placement, US guidance [facility] [employer] Work Phone: Start: 01-25-2017 End: 01-25-2017 Follow Up after Imaging/labs Follow Up after Imaging/labs [facility] [employer] Work Phone: MR Breast - bilatera l WO and W contrast IV [facility] Path report.final Dx Spec [facility] Work Phone: [facility] Payers Date Payer Category Payer Self-pay [id number] 2024 Unknown [id number] 2014 Unknown [id number] Private Health Insurance [id number] Unknown [id number] 2.16.8 [id number] Unknown [id number] 2.16.8 [id number] Unknown [id number] 2.16.8 [id number] Unknown [id number] 2.16.8 [id number] Unknown [id number] 2.16.8 [id number] Unknown [id number] 2.16.8 [id number] Unknown [id number] 2.16.8 [id number] Unknown [id number] 2.16.8 [id number] Social History Date Type Detail Facility Start: 05-15-2013 [facility] Work Phone: Start: 1980 Sex Assigned At Female [facility] Start: 05-15-2013 [facility] (finding[facility] Evaluation note 03-14-2025 Note Date & Type Note Facility 03-14-2025 Evaluation note Diagnosis Onset Date Resolution Axillary lymphadenopathy acute March 14, 2025 2:39pm Left breast mass acute February 2:39pm [facility] Work Phone: Radiology Diagnostic study note 03-09-2025 Note Date & Type Note Facility 03-09-2025 Radiology Diagnostic study note [facility] Imaging Services [address] [place] [address] Breast Complete Unilateral MR#: [id number] Acct: [id number] Name: LUCIAN SINGLETARY Rep #: [id number] : 1980 F 44 From: Ofelia Corado MD PCP: Dr. Lesley Orourke, Status: REG CLI Study:Breast Complete Unilateral Date of Exam : 03/09/25 Exam# [id number] Ordering Dr: Kimberly Orourke sa, DO EXAM: [...] be mailed to the patient. Reading Location: [id number] CC: Dr. Lesley Orourke DO ~ Guillotine Trimmer: Signed [facility] Evaluation note Note Date & Type Note Facility Evaluation note No assessment information availa [facility] Work Phone: Reason for referral (narrative) Note Date & Type Note Facility Reason for referral (narrative) No reason for referral information available [facility] Work Phone: Chief Complaint and Reason [...] MAMM March 09, 2025 9:25 am birads March 14, 2025 2:39 pm Liletta Removal *ok per JV March 14 4:42pm Reason for Visit Admit Date Axillary lymphadenopathy March 14, 2025 2:39pm Left breast mass March 14, 2025 2:39 pm Family History No Family History Records Found Relationship Condition Age at Onset Recorded Date/T kiki father Hypertension Unknown mother Cardiac disease Unknown Hypertension Unknown brother Diabetes mellitus Unknown Summary Purpose Advance Directives No Advanced Directives Records Found [...] ized section and content) DATE CREATED AUTHOR 03/20/2025 [facility] FOR RECORDS PERTAINING TO PATIENTS WHO ARE [...] BE BASED ON THE PRIMARY CLINICAL RECORDS. [employer] provides no warranty or guarantee of the accuracy or completeness of information in this document.
== END | disposition home or self-care (01) ==
PROVIDERS: PCP Family Medicine; Referring Provider Surgery; Visit Provider Surgery
DX: R92.8 Other abnormal and inconclusive findings on diagnostic imaging of breast (principal); N63.10 Unspecified lump in the right breast, unspecified quadrant; N63.20 Unspecified lump in the left breast, unspecified quadrant
CPT/HCPCS: 77049; A9575; A4216; C8908

== ENCOUNTER → 2025-04-02 | Outpatient (CLI) | payer OTHER, SELFPAY ==
--- NOTE | 2025-04-02 12:28 | US_ITS ---
PROCEDURE: BREAST LIMITED UNILATERAL 04/02/2025 REASON FOR EXAM: F, Age 44 y/o , CHECK RIGHT BREAST PER MRI REPORT. Recent diagnosis of left breast cancer. Right breast mass. Inconclusive breast MRI. Evaluate. Prior history of right breast mass which was biopsied and shown to represent a benign process. COMPARISON: Bilateral breast MRI dated 03/21/2025 and mammogram studies dated 03/09/2025, 03/07/2025, 03/30/2023, and 02/20/2022. A left breast ultrasound dated 01/13/2017 was also reviewed.. TECHNIQUE: BREAST LIMITED UNILATERAL FINDINGS: There is a solid hypoechoic mass identified in the right breast of the 10 o'clock, 5 cm from the nipple position measuring 2.1 x 1.8 x 1.1 cm. This mass has heterogeneous echotexture and a lobulated configuration. It does correlate to the enhancing mass seen on the MRI examination. It appears similar in location when compared to the prior right breast mass that was biopsied back in 2017. The biopsy was shown to represent a benign process. Since this mass seen, on today's ultrasound examination, has equivocal enhancement based upon MRI criteria, re-biopsy is warranted in order to completely exclude a malignancy. There is a benign-appearing cyst identified at the 9 o'clock, 7 cm from the nipple position measuring 11 x 7 x 3 mm. There is an abnormal appearing right axillary lymph node which appears to lack of fatty hilum. This measures 11 x 7 x 5 mm. The cortex appears thick. Biopsy is warranted in order to completely exclude a malignancy. There are benign-appearing axillary lymph nodes seen. These have a fatty hilum and the cortexes are not abnormally thickened. These masses measure 11 x 11 x 7 mm and 12 x 10 x 7 mm. US/Breast Limited Unilateral IMPRESSION: There is an abnormal appearing mass in the right breast at the 10 o'clock posit ion as well as an abnormal appearing right axillary lymph node. Biopsy of both of these masses should be performed prior to the patient being taken to surgery in order to completely exclude a malignancy. BI-RADS 4: SUSPICIOUS RECOMMENDATION: Biopsy Recommended Reading Location: [id number]
== END | disposition home or self-care (01) ==
LOC: OPUS 12:28
PROVIDERS: PCP Family Medicine; Referring Provider Surgery; Visit Provider Surgery
DX: N63.10 Unspecified lump in the right breast, unspecified quadrant (principal); C50.912 Malignant neoplasm of unspecified site of left female breast
CPT/HCPCS: 76642

== ENCOUNTER 2025-04-10 12:54 | Outpatient (CLI) | payer OTHER, SELFPAY ==
--- NOTE | 2025-04-10 12:56 | US_ITS ---
PROCEDURE: US BREAST BIOPSY 1ST LESION N/A REASON FOR EXAM: F, Age 44 y/o , ABNORMAL BREAST MRI TECHNIQUE: US BREAST BIOPSY 1ST LESION COMPARISON: Prior exam(s) dating back to . FINDINGS: ULTRASOUND: Under direct sonographic guidance, the surgeon performed multiple core biopsies of the cluster of hypoechoic nodular densities at the 10 o'clock position of the breast at 5 cm from the nipple. The surgeon also performed ultrasound-guided biopsy of the right axillary lymph node. US/US Breast Biopsy 1st Lesion IMPRESSION: OVERALL FINAL ASSESSMENT: BIRADS 11 WAITING PATHOLOGY RECOMMENDATION: Successful ultrasound-guided breast biopsy of the abnormality at the 10 o'clock position of the breast at 5 cm from the nipple as well as the right axilla. Reading Location: [id number]
--- NOTE | 2025-04-10 13:45 | BRBX_PTH ---
PATIENT: LUCIAN SINGLETARY LOC: OPUS U#:[id number] AGE/SX: 44/F ROOM: RE04/10/[address]: Dr. Haydee Fowler MD : 1980 BED: DIS: 04/10/2025 SPEC #: [id number] RECD: 04/10/25 14:05 STATUS: BRITTANY REQ #: [id number] NURA: 04/10/25 13:[address]: Haydee Fowler DEPT: SURGICAL PATHOLOGY RECD BY: Honorio Pandya ENTERED: 04/10/25 14:50 SP TYPE: BREAST BX OTHR DR: Dr. Lesley Orourke, Tissues: A - Right breast, NOS Procedures: Immunohistochemical Stains Surgery Specimen Level IV IHC Stain ADDITIONAL HEADER OPERATION: Right breast axillary lymph node biopsy PRE-OP DIAGNOSIS: Right breast mass, right axillary lymph node TISSUE SUBMITTED: A- Right breast, 10:00, 5cm from nipple, B- Right axillary lymph node MICROSCOPIC DIAGNOSIS A. Right breast, 10 o'clock, 5 CMFN, core biopsy: - Focal atypical ductal hyperplasia, focal fibroadenomatoid change. - IHC for CK5/6, p40 and ER support the histologic impression. B. Lymph node, right axilla, core biopsy: - Invasive ductal carcinoma, Grade 2 (tubule 3, nuclear 2, mitosis 1), at least 0.4 cm - see note. - Positive IHC: REMY-3, CK7 (weak), Synaptophysin (patchy), pankeratin, E-cadherin. - ER: positive (95%, intermediate intensity). - OK: positive (100%, strong intensity). - ACU1NHC: negative (score 0). - Ki67: 50% - Negative IHC: CK20, TTF-1, Chromogranin, CD56, CDX2. Note: Definitive lymph node tissue is not identified. This may represent sampling of a completely effaced lymph node by metastatic carcinoma, or extranodal tumor deposits, or a focus of other invasive carcinoma. Correlation with clinical and imaging findings recommended. COMMENT Selected slides/images were reviewed in intradepartmental consultation by Dr Racquel Crook (breast pathology division, [facility]). A preliminary diagnosis was discussed with Dr Fowler 04/24/25. MICROSCOPIC DESCRIPTION Slides are reviewed. All matched controls reacted appropriately. These tests were developed and their performance characteristics determined by [facility]. They may not have been cleared or approved by the U.S. Food and Drug Administration. The FDA has determined that such clearance or approval is not necessary. The above immunohistochemical markers and/or special stains have been reviewed by the Pathologist. GROSS DESCRIPTION Received in 2 formalin containers labeled with the patient's name and date of . Designated as: A. "RT breast" are 3 robertson-pink to white tissue cores, 0.4 cm to 1.7 cm in length by 0.1 cm in diameter. Entirely submitted in 1 cassette. Cold ischemic time: <1-minuteFormalin fixation time: 29 hours, 45 minutes B. "RT axilla" is a robertson-pink to yellow, fragmented tissue core, 1.7 cm in length by 0.1 cm in diameter. Entirely submitted in 1 cassette. RI 04/10/2025 CPT:[id number] ADDENDUM ADDENDUM ADDENDUM ADDENDUM ADDENDUM ADDENDUM ADDENDUM ADDENDUM ADDENDUM ADDENDUM ADDENDUM ADDENDUM ADDENDUM ADDENDUM ADDENDUM ADDENDUM ADDENDUM ADDENDUM ADDENDUM ADDENDUM ADDENDUM ADDENDUM ADDENDUM ADDENDUM ADDENDUM ADDENDUM ADDENDUM ADDENDUM ADDENDUM ADDENDUM ADDENDUM ADDENDUM ADDENDUM ADDENDUM ADDENDUM ADDENDUM ADDENDUM 06/20/2025 09:51 ADDENDUM 06/20/2025 09:51 ADDENDUM 06/20/2025 09:51 ADDENDUM 06/20/2025 09:51 ADDENDUM 06/20/2025 09:51 This addendum is added to incorporate an outside pathology consultation report. The case was examined at [facility] by Dr. Cheatham (#[id number]) and the following diagnosis was rendered. A. Breast, right, 10o'clock, 5cm from nipple, biopsy: Fibroadenoma with usual ductal hyperplasia. B. Lymph node, right axilla, biopsy: Carcinoma involving fibroconnective tissue, measuring at least 3.5mm in greatest dimension, see comment. No lymph node tissue identified. Diagnosis Comment: Part B: The histologic sections show carcinoma involving fibroconnective tissue with no definitive lymph node tissue identified. The histomorphologic findings could represent metastatic carcinoma totally replacing lymph node tissue or invasive carcinoma involving axillary fat. Clinical and radiological correlation are recommended. Review of the provided immunohistochemical stained slides confirms the tumor cells have the following immunoprofile: GATA3 : Positive (strong and diffuse) TRPS1: Positive (strong and diffuse) Estrogen Receptor: Positive (91-100%, moderate to strong intensity) Progesterone Receptor: Positive (91-100%, moderate to strong intensity) HER2: Negative (score 1+) CK7: Patchy positive Synaptophysin: Patchy positive CK20, TTF-1, Chromogranin, CD56, CDX2: Negative Dr. Albin Ho of [facility] Breast Pathology service, reviewed select slides from part A with diagnostic concordance. Please see complete above mentioned consultation report in EMR
--- NOTE | 2025-04-10 14:43 | PCM.OPRPT ---
Operative Report (Standard) Operative Information Date of Procedure: 04/10/25 Pre-Operative Diagnosis: Right breast mass–fibroadenoma–previous biopsy, right axillary lymphadenopathy Post-Operative Diagnosis: Same Surgery/Procedure Performed: Ultrasound-guided right breast biopsy, right axillary lymph node biopsy linseed oil order filler: No Type of Anesthesia: Local Procedure Start Time: 13:20 Procedure Stop Time: 13:40 Select all DRAINS/GRAFTS/IMPLANTS that apply: Implanted device Implanted device details: Bard dual ultra-ribbon clip in the right axillary lymph node Estimated Blood Loss: < 5cc Specimen collected: Yes Description of specimen(s) removed: 1. Right breast mass 10:00 5 cm from nipple–previous biopsy 2017 fibroadenoma, 2. Right axillary lymph node Description of surgery: Procedure: Right breast and right axillary lymph node ultrasound-guided core biopsy Indications: 44year-old female with hypoechoic nodule which had some enhancement on MRI in the right breast 10:00 5 cm from nipple. This was previously biopsied in 2017 as a fibroadenoma. Ultrasound also called a lymph node with no fatty hilum in the right axilla recommended biopsy. Risk benefits were discussed the patient and she elected to proceed with ultrasound guided core biopsy with clip placement Description of procedure: Patient was brought into the ultrasound room in the right breast was marked. A timeout was completed verifying correct patient, procedure, site, specially, prior to beginning procedure. The right breast was prepped and draped in usual sterile fashion and using local anesthesia was obtained with 1% lidocaine with epi. The lesion was located with the ultrasound. Small incision was made with 11 blade to introduced the BARD MaxCore through the skin. Under ultrasound guidance multiple core samples were obtained using then 14-gauge BARD MaxCore and sent in formalin for pathology. The Bard dual ultraribbon clip was then deployed into lymph node under ultrasound guidance and a picture was taken, no clip was left in the right breast mass as there was already a previous clip. Upon completion procedure hemostasis was obtained and a Steri-Strip and OpSite were placed. Patient was then taken to the mammography suite for clip verification. The clip was verified. The patient tolerated the procedure well and was discharged from the breast imaging department good condition. Surgical Findings: see op note Complications Complications: No
--- OUTSIDE RECORDS SUMMARY | 2025-04-10 20:48 | XMS RPT_ITS | CCD ---
Author Organization [facility] Care Team Providers Care Faa Certified Powerplant Mechanic Name Role Phone Haydee Fowler MD Unavailable MATTHEW Vasquez RN, Loulou Foote Unavailable Unavailabl belinda Vasquez RN RN, Loulou Foote Unavailable Unavailabl e Haven MONTALVO, Dr. Sutton Primary Care Provider [phone] Contreras MONTGOMERY, Dr. Bloom Attending Provider [phone] Dr. Merle Chairez MD Referring Provider [phone] Dr. Lesley Orourke DO Attending Provider Dr. Lesley Orourke DO Referring Provider [phone] Dr. Haydee Fowler MD Attending Provider [phone] Dr. Nicole Breen DO Attending Provider Dr. Nicole Breen DO Referring Provider Dr. Haydee Fowler MD Referring Provider [phone] HAYDEE FOWLER Referring Unavailable MASCI, SRAVAN A Attending Unavailable HAVEN, LESLEY A Primary Care Unavailable Merle Chairez Referring Unavailable Merle Chairez Attending Unavailable Malys, Lesley Primary Care Unavailable Haydee Fowler Attending Unavailable Haydee Fowler Referring Unavailable Malys, Lelsey Primary Care Unavailable Haydee Fowler Referring Unavailable Haydee Fowler Attending Unavailable Adielys, Lesley Primary Care Unavailable Nicole Breen Referring Unavailleeann e Nicole Breen Attending Unavailabl e Malys, Lesley Primary Care Unavailable Robotham, Haydee Attending Unavailable Robotham, Haydee Referring Unavailable Malys, Lesley Primary Care Unavailable Malys, Lesley Primary Care Unavailable Malys, Lesley Referring Unavailable Malys, Lesley Attending Unavailable Malys, Lesley Referring Unavailable Robotham, Haydee Attending Unavailable Malys, Lesley Primary Care Unavailable Nery Nicole Meyers Attending Unavailabl e Malys, Lesley Primary Care Unavailable Malys, Lesley Referring Unavailable Robotham, Haydee Attending Unavailable Malys, Lesley Primary Care Unavailable Malys, Lesley Referring Unavailable Robotham, Haydee Attending Unavailable Malys, Lesley Primary Care Unavailable Malys, Lesley Referring Unavailable Malys, Lesley Attending Unavailable Malys, Lesley Primary Care Unavailable Malys, Lesley Attending Unavailable Malys, Lesley Referring Unavailable Malys, Lesley Primary Care Unavailable Malys DO, Lesley A Primary Care Provider Allergies Allergy Classification Reported Allergen(s) Allergy Type Date of Onset Reaction(s) Facility (3 sources) sulfADIAZINE drug allergy 7 [facility] Work Phone: (8 sources) Sulfonamides (Antibiotic); Translations: [SULFA (SULFONAMIDE ANTIBIOTICS)] Allergy to substance 6 [facility] (1 source) Sulfonamides (Antibiotic) Drug allergy (disorder) 5 [facility] (1 source) Sulfonamides (Antibiotic) Drug Allergy 6 [facility] Medications Completed/Discontinued Medications Medication Drug Class(es) Dates Sig (Normalized) Sig (Original) DULoxetine 20 mg delayed release oral capsule (1 source) Serotonin and Norepinephrine Reuptake Inhibitor End: 04-04-2025 take 2 capsules by mouth once daily DULoxetine (CYMBALTA) 20 mg capsule Take 40 mg by mouth once daily. 04/04/2025 Discontinued Drug Treatment Unknown - unknown (3 sources) No information available. Problems Active Problems Problem Classification Problem Date Documented Date Episodic/Chronic Cancer of breast (6 sources) Infiltrating duct carcinoma of breast; Translations: [Malignant neoplasm of unspecified site of unspecified female breast] Onset: 04-04-2025 03-30-2025 Chronic Cancer of breast (1 source) Personal history of malignant neoplasm of breast; Translations: [Personal history of malignant neoplasm of breast] Onset: 03-21-2025 Episodic Contraceptive and procreative management (11 sources) Intrauterine contraceptive device in situ; Translations: [Presence of (intrauterine) contraceptive device] 03-14-2025 Episodic Immunizations and screening for infectious disease (1 source) Encounter for screening for infections with a predominantly sexual mode of transmission; Translations: [Encounter for screening for infections with a predominantly sexual mode of transmission] Onset: 01-15-2025 Episodic Lymphadenitis (19 sources) Axillary lymphadenopathy; Translations: [Localized enlarged lymph nodes] Onset: 03-15-2025 03-14-2025 Episodic Comment on above: Left suspicious for mets Left suspicious for mets, Empower Negative Left suspicious for mets--+ on biopsy, Empower Negative Other nutritional; endocrine; and metabolic disorders (3 sources) Overweight; Translations: [Overweight] Onset: 01-25-2017 01-25-2017 Chronic Residual codes; unclassified (1 source) Estrogen receptor positive status [ER+]; Translations: [Malignant neoplasm of overlapping sites of left breast in female, estrogen receptor positive (HCC)] Onset: 04-04-2025 Episodic Unclassified (5 sources) Mass of left breast Unclassified (10 sources) N63.20 - Unspecified lump in the left breast, unspecified quadrant Unclassified (3 sources) C50.919 - Malignant neoplasm of unspecified site of unspecified female breast Past or Other Problems Problem Classification Problem Date Documented Da te Episodic/Chronic Nonmalignant breast conditions (20 sources) Breast lump; Translations: [Unspecified lump in the right breast, unspecified quadrant] Onset: 04-02-2015 01-25-2017 Episodic Other screening for suspected conditions (not mental disorders or infectious disease) (9 sources) Mammography abnormal; Translations: [Magnetic resonance imaging of breast abnormal] Onset: 04-02-2015 01-25-2017 Episodic Results Test Name Value Interpretation Reference Range Facility Breast Limited Unilateralon 04-02-2025 Breast Limited Unilateral [facility] [address] [place] [address] Breast Limited Unilateral MR#: [id number] Acct: [id number] Name: LUCIAN BAUTISTA Rep #: [id number] : 1980 F 44 From: Hodan Peñaloza PCP: Dr. Lesley Orourke, DO Status: REG CLI Study: Breast Limited Unilateral Date of Exam: Exam# [id number] Ordering Dr: Haydee Fowler MD PROCEDURE: BREAST LIMITED UNILATERAL 04/02/2025 REASON FOR EXAM: F, Age 44 y/o , CHECK RIGHT BREAST PER MRI REPORT. Recent diagnosis of left breast cancer. Right breast mass. Inconclusive breast MRI. Evaluate. Prior history of right breast mass which was biopsied and shown to represent a benign process. COMPARISON: Bilateral breast MRI dated 03/21/2025 and mammogram studies dated 03/09/2025, 03/07/2025, 03/30/2023, and 02/20/2022. A left breast ultrasound dated 01/13/2017 was also reviewed.. TECHNIQUE: BREAST LIMITED UNILATERAL FINDINGS: There is a solid hypoechoic mass identified in the right breast of the 10 o'clock, 5 cm from the nipple position measuring 2.1 x 1.8 x 1.1 cm. This mass has heterogeneous echotexture and a lobulated configuration. It does correlate to the enhancing mass seen on the MRI examination. It appears similar in location when compared to the prior right breast mass that was biopsied back in 2017. The biopsy was shown to represent a benign process. Since this mass seen, on today's ultrasound examination, has equivocal enhancement based upon MRI criteria, re-biopsy is warranted in order to completely exclude a malignancy. There is a benign-appearing cyst identified at the 9 o'clock, 7 cm from the nipple position measuring 11 x 7 x 3 mm. There is an abnormal appearing right axillary lymph node which appears to lack of fatty hilum. This measures 11 x 7 x 5 mm. The cortex appears thick. Biopsy is warranted in order to completely exclude a malignancy. There are benign-appearing axillary lymph nodes seen. These have a fatty hilum and the cortexes are not abnormally thickened. These masses measure 11 x 11 x 7 mm and 12 x 10 x 7 mm. US/Breast Limited Unilateral IMPRESSION: There is an abnormal appearing mass in the right breast at the 10 o'clock position as well as an abnormal appearing right axillary lymph node. Biopsy of both of these masses should be performed prior to the patient being taken to surgery in order to completely exclude a malignancy. BI-RADS 4: SUSPICIOUS RECOMMENDATION: Biopsy Recommended Reading Location: [id number] CC: Dr. Lesley Orourke DO; Dr. Haydee Fowler MD Rn Hedis: Signed Normal [facility] Surgery Visit Reporton 03-30 Surgery Visit Report [facility] [address] [place] [address] OFFICE VISIT Date of Service: 03/30/25 MR#: [id number] Acct: [id number] Name: LUCIAN BAUTISTA Rep #: [id number] : 1980 Provider: Dr. Haydee minaya MD Age/Sex: 44/F Location: [facility] Status: Signed Intake Vital Signs 03/14/25 16:47 03/30/25 10:01 Height 5 ft 6 in 5 ft 6 in Weight: 163 lb BMI 26.3 BP 136/79 H Blood Pressure Location Lt brachial Position Sitting Respiration 17 Pulse 74 Pulse Source Monitor Pulse Oximetry (%) 99 Oxygen Delivery Method room air Intake Visit Reasons: DISCUSS SX Chief Complaint: discuss surgery Is patient in pain?: No Allergies Sulfa (Sulfonamide Antibiotics) Allergy (Mild, Verified 03/30/25 10:02) Rash Medications ???Medication ???Instructions ???Recorded ???Confirmed ???Type NK 03/14/25 03/30/25 History PFSH Surgical History H/O breast biopsy Family History Father Hypertension Mother Heart disease a fib Hypertension Brother Diabetes Social History Smoking Status: Former smoker HPI HPI HPI: 44-year-old female presents to discuss surgical options for her left breast cancer. Pathology from left breast biopsies and left axillary lymph node were positive for invasive ductal carcinoma ER/MO positive, HER2/kole negative. Biopsy sites healing well. Patient is genetics were negative except for a couple of variants of uncertain significance. Patient does have an upcoming appointment with plastics. Patient also has upcoming appoint with Dr. Dunlap. MRI was completed 03/21/25???read pending at time of appointment. ROS General General: Yes weight change, fatigue and breast cancer; No appetite or colon cancer Additional Details: wt loss intentional HEENT HEENT: No difficulty swallowing, eye injury, eye surgery, swollen glands or hoarseness Endo Endocrine: No thyroid disease, diabetes mellitus, thyroid cancer, Hair loss, heat intolerance or cold intolerance Skin Skin: No rash or changing moles Breast Breast: Yes left breast lump, breast pain, abnormal mammogram and abnormal US; No right breast lump, nipple discharge or breast enlargement Musc Musculoskeletal: No back problems, arthritis, rheumatoid arthritis, gout or joint pain Cardio Cardiovascular: No murmur, pacemaker, heart disease, atrial fibrillation, high blood pressure, heart attack, heart stent, palpitations, shortness of breath with exertion or chest pain Psych Psychiatric: No depression, anxiety or hearing voices Resp Respiratory: No shortness of breath, No sleep apnea, No cough, No COPD, No asthma, No emphysema and No wheezing Gastro Gastrointestinal: No abdominal pain, No nausea or vomiting, No diarrhea, No constipation, No blood in stool, No acid reflux, No hemorrhoids, No ulcers, No gallbladder problem and No black,tarry stools Mario Hematologic: No blood thinners, No blood disorders, No bleeding, No anemia and No blood clots Neuro Neurologic: No numbness and No tingling Exam Const General: cooperative, healthy appearing and comfortable Chest Other: Left breast biopsy sites healing well. Assessment and Plan Assessment and Plan (1) Invasive ductal carcinoma of left breast: Status: Acute (2) Axillary lymphadenopathy: Status: Acute Comment: Left suspicious for mets--+ on biopsy, Empower Negative Orders: Orders PET/CT Tumor WB Initial 03/30/25 C50.912 - Malignant neoplasm of unspecified site of left female breast Breast Limited Unilateral Today C50.912 - Malignant neoplasm of unspecified site of left female breast, N63.10 - Unspecified lump in the right breast, unspecified quadrant Plan I have given the patient options for initial surgical treatment. Options are the following: mastectomy vs. mastectomy followed by immediate reconstruction. I have described the procedures to the patient. I have described the advantages and disadvantages of the options, but I have told the patient that among the options, the survival rate for breast cancer is the same. I have told the patient that with multiple + LN would recommend axillary lymph node. A full lymph node dissection will increase the risk for lymphedema, especially if there are 4 or more lymph nodes positive for metastatic disease and radiation to the axilla is also required. I have told the patient the risks of surgery, including but not limited to: infection, bleeding, scar tissue, seroma and persistent seroma, lymph leak, injury to any blood vessels, injury to any nerves (particularly the long thoracic, the thoracodorsal, and the second intercostal brachial and (more content not included)... Normal [facility] Breast Bilateral W/O and Won 03-21-2025 Breast Bilateral W/O and W [facility] [address] [place] [address] Breast Bilateral W/O and W MR#: [id number] Acct: [id number] Name: LUCIAN BAUTISTA Rep #: [id number] : 1980 F 44 From: Jojo Corado MD PCP: Dr. Lesley Orourke, Status: DEP CLI Study: Breast Bilateral W/O and W Date of Exam: 03/21 Exam# [id number] Ordering Dr: Haydee Fowler MD ADDENDUM by Dr. Jojo Croado MD on 04/06/25 at 1600 The ultrasound images dated 08/29/2018 and 01/13/2017, as well as the mammogram dated 04/09/2020 and 08/29/2018 are now available for review. The previously biopsied mass in the upper-outer right breast at 10 o'clock 3 cm from the nipple does not definitely correlate to the mass of concern that is mildly enhancing in the upper-outer right breast at middle depth. There is a biopsy marker clip in the upper-outer right breast that is very superficial and is associated with a very small mass, which may be the previously biopsied right breast mass at 10 o'clock 3 cm from the nipple. The mass in the upper-outer right breast at middle depth that is enhancing is still of concern, as well as the prominent right axillary lymph node. Recommend second-look ultrasound of the right breast and right axilla with subsequent ultrasound-guided biopsy if indicated. However, if no sonographic correlate is visualized, this mass had be amenable to MRI guided biopsy. Reading Location: [id number] 04/06/25 1600 Date cc: Dr. Lesley Orourke DO; Dr. Haydee Fowler MD * Signed PROCEDURE: BREAST BILATERAL W/O AND W 03/21/2025 REASON FOR EXAM: 44-year-old female with left breast cancer (invasive ductal carcinoma and shady metastatic disease) presents for diagnostic MRI of the breast. TECHNIQUE: BREAST BILATERAL W/O AND W CONTRAST: 15 mL of IV Clariscan COMPARISON: Mammogram and ultrasound 03/09/2025. Mammogram 03/07/2025, 03/30/2023, 02/20/2022. FINDINGS: TISSUE DENSITY: The breasts are heterogeneously dense, which may obscure small masses. Background Parenchymal Enhancement: Mild RIGHT Breast: There is a mildly enhancing mass in the upper-outer right breast at middle depth, measuring 1.6 x 0.9 x 1.7 cm AP by TR by CC (series 89363 image 141, series 8 image 19). This mass demonstrates progressive enhancement when compared to delayed images. LEFT Breast: 1. There is an irregular enhancing mass with an associated biopsy marker clip in the upper-outer left breast at posterior depth at 1 o'clock 8 cm from the nipple, measuring 2.2 x 2.1 x 1.7 cm AP by TR by CC (series 58320 image 104, series 7, image 12). Marker clip centrally there is linear non-mass enhancement extending 1.5 cm inferior and 2.0 cm anterior to the mass. The mass abuts the underlying pectoralis muscle, however there appears to be a preserved fat plane. There is no definite evidence of abnormal enhancement in the underlying pectoralis muscle. This is consistent with the biopsy-proven malignancy at 1 o'clock 8 cm from the nipple. 2. There is an irregular enhancing mass with an associated biopsy marker clip in the lower inner left breast at posterior depth at 6:30 o'clock 9 cm from the nipple, measuring 2.3 x 1.4 x 2.0 cm AP by TR by CC (series 41165 image 203, series 7 image 18). This mass is approximately 0.6 cm from the underlying pectoralis muscle. This is consistent with the biopsy-proven malignancy at 630/7 o'clock 9 cm from the nipple. 3. There are 2 other subcentimeter enhancing masses in the upper-outer left breast, medial to the mass at 1 o'clock 8 cm from the nipple. The masses measure up to 0.9 cm (series 02030, image 135) and 0.5 cm (series 05254, image 115). These masses are suspicious for satellite lesions. 4. There is a 1.7 cm enhancing mass in the upper-outer left breast at anterior depth with an associated biopsy marker clip. This mass has been mammographically stable on multiple priors dating back to 2021 and is considered benign. Other Findings: There is left axillary lymphadenopathy, with a biopsy marker clip associated with an enlarged abnormal lymph node measuring 1.9 x 1.2 x 1.6 cm (series 45658, image 58), this is consistent with the biopsy-proven shady metastatic disease. There is at least 1 prominent right axillary lymph node measuring 0.9 x 0.8 cm (series 81007, image 69). There are no suspicious internal mammary lymph nodes. Visualized portions of the thoracic and abdominal viscera are unremarkable. MRI/Breast Bilateral W/O and W IMPRESSION: 1. Irregular enhancing mass in the left breast at 1 o'clock, is consistent with the biopsy-proven malignancy. The mass abuts the underlying pectoralis muscle, without evidence of underlying enhancement of the pectoralis. There are additi (more content not included)... Normal [facility] NATERAon 03-15-2025 PAULA SEE SCANNED REPORT Normal [facility] Comment on above: Performed By: #### L 900.0098 ####[facility] [id number] [place], [address] Immunohistochemical Stainson 03-14-2025 Immunohistochemical Stains Patient Age/Sex Location Account Attending Physician HAYDERLUCIANMARIA DE JESUS GOMEZ 44/F [facility] [id number] Dr. Nicole Breen, Odilia Specimen: [id number] Received: 03/14/25 Status: BRITTANY Abbasi Num: [id number] Spec Type: BREAST BX Subm Dr: Dr. Nicole Breen, DO HEADER OPERATION: Left breast biopsy, left lymph node biopsy PRE-OP DIAGNOSIS: Left breast biopsy, left lymph node biopsy TISSUE SUBMITTED: A- Left breast biopsy - 7o'clock, B- Left breast - 1o'clock, C- Left axillary lymph node MICROSCOPIC DIAGNOSIS A. Breast, left, 7 o'clock, 7-10 CMFN, core biopsy: - Invasive ductal carcinoma with neuroendocrine features. - Grade 2 (tubule 3, nuclear 2, mitosis 1). - At least 1.2 cm - ER: positive (95%, intermediate intensity) - MO: positive (80%, intermediate intensity) - [id number]: negative (0) - Ki67: 80% Note: Ecadherin is positive; p120 shows membranous staining pattern, confirming the diagnosis of ductal carcinoma. Synaptophysin is focally positive; Chromogranin is negative. B. Breast, left, 1 o'clock, 8 CMFN, core biopsy: - Invasive ductal carcinoma with neuroendocrine features. - Grade 2 (tubule 3, nuclear 2, mitosis 1). - At least 1.0 cm - ER: positive (95%, intermediate intensity) - MO: positive (100%, strong intensity) - [id number]: negative (1+) - Ki67: 90% Note: Ecadherin is positive; p120 shows membranous staining pattern, confirming the diagnosis of ductal carcinoma. Synaptophysin is focally positive; Chromogranin is negative. C. Lymph node, left axilla, core biopsy: - Positive for macrometastasis, at least 0.8 cm (two of two cores). COMMENT A preliminary diagnosis was discussed with Dr Lanre Fowler 03/21/2025. MICROSCOPIC DESCRIPTION Slides are reviewed. All matched controls reacted appropriately. (Ecadherin, Synaptophysin, Chromogranin, ER, MO) These tests were developed and their performance characteristics determined by [facility]. They may not have been cleared or approved by the U.S. Food and Drug Administration. The FDA has determined that such clearance or approval is not necessary.??? The above immunohistochemical/ dualISH???markers are reviewed by the Pathologist. All controls show appropriate reactivity. (HER2, p120) Patient Age/Sex Location Account Attending Physician NEDOMA,LUCIAN JASON 44/F LAB [id number] Odilia Julio All immunohistochemistry , in situ hybridization, and histochemical tests were developed by and are performed at the [facility], [address] [place] [address]. All Immunofluorescent (IF)???tests were developed by and are performed at the [facility], [address] [place] [address] ???[id number]. All tests reported here, except those addressing HER2 overexpression as a predictive marker, have not been cleared by or approved by the US Food and Drug Administration (FDA). The laboratory is regulated under CLIA as qualified to perform high-complexity testing. The tests are used for clinical purposes. They should not be regarded as investigational or for research. GROSS DESCRIPTION Received in 3 formalin containers labeled with the patient's name and date of . Designated as: A. "L breast tissue 7 o'clock" are 4 robertson-yellow tissue cores, 0.9 cm to 1.3 cm in length by 0.1 cm in diameter. Entirely submitted in 1 cassette. Cold ischemic time: < 1 minuteFormalin fixation time: 28 hours B. "L breast 1 o'clock" are are 2 robertson-yellow fragmented tissue cores, 0.8 cm and 1.5 cm in length by 0.1 cm in diameter. Entirely submitted in 1 cassette. Cold ischemic time: < 1 minuteFormalin fixation time: 28 hours C. "Lymph" are 2 robertson-yellow fragmented tissue cores, 0.7 cm and 1.0 cm in length by 0.1 cm in diameter. Entirely submitted in 1 cassette. [place] 03/15/2025 CPT:78706f8,35223m5, 51710v0,54120d8 Patient Age/Sex Location Account Attending Physician LUCIAN BAUTISTA 44/F LAB [id number] Dr. Nicole Breen, Odilia (more content not included)... Normal [facility] Comment on above: Performed By: #### P [facility] ####[facility] [id number] [place], [address] Exploration Engineer Office Visit Reporton 03-14-2025 Exploration Engineer Office Visit Report [facility] [address], [facility] [address] [place] [address] OFFICE VISIT Date of Service: 03/14/25 MR#: [id number] Acct: [id number] Name: LUCIAN BAUTISTA Rep #: [id number] : 1980 Provider: Dr. Nicole Cornejo DO Age/Sex: 44/F Location: [facility] Status: Signed Intake Vital Signs 03/14/25 16:47 Height 5 ft 6 in Weight: 162 lb 6 oz BMI 26.2 BP 153/78 H Intake Visit Reasons: Liletta Removal *ok per JV Youth Leader Required: No Is patient in pain?: No [...] Liletta Removal *ok per JV Details: LUCIAN BAUTISTA is a 44 year old who presents for IUD removal. She just came down from Dr. Fowler's office for a breast biopsy that is highly suspicious for breast cancer. She has a liletta IUD that was placed 5 years ago. Her paps are up to date. last done in [address] Licona ([facility]). Her first menses was at age 13, [...] reviewed and (more content not included)... Normal [facility] Surgery Visit Reporton 03-14 Surgery Visit Report [facility] [address] [place] [address] OFFICE VISIT Date of Service: 03/14/25 MR#: [id number] Acct: [id number] Name: LUCIAN BAUTISTA Rep #: [id number] : 1980 Provider: Dr. Haydee minaya MD Age/Sex: 44/F Location: [facility] Status: Signed Intake Vital Signs 03/14/25 14:56 [...] biopsies fibroadenoma bilateral breast in 2014 and 2016???times 2 repeat of the 1 from 2015- no nipple discharge. MAMMOGRAM: TISSUE DENSITY: The breasts are heterogeneously [...] lump, breast (more content not included)... Normal [facility] Breast Complete Unilateralon 03-09-2025 Breast Complete Unilateral [facility] Services [address] [place] [address] Breast Complete Unilateral MR#: [id number] Acct: [id number] Name: LUCIAN BAUTISTA Rep #: [id number] : 1980 F 44 From: Jojo Corado MD PCP: Dr. Lesley Orourke, Status: [facility] CLI Study: Breast Complete Unilateral Date of Exam: 03/09 Exam# [id number] Ordering Dr: Lesley Orourke DO EXAM: DIAG [...] be mailed to the patient. Reading Location: [id number] CC: Dr. Lesley Orourke DO Rn Hedis: Signed Normal [facility] Breast imaging reportOrdered By: Jojo Corado on 03-09-2025 Study report [facility] Imaging Services [address] [place] [address] DIAG MAMM W/CAD, UNILAT MR#: [id number] Acct: [id number] Name: LUCIAN BAUTISTA Rep #: [id number] : 1980 F 44 From: Ofelia Corado MD PCP: Dr. Lesley Orourke DO Status: REG CLI Study:DIAG MAMM W/CAD, UNILAT Date of Exam: 03/09/25 Exam# [id number] Ordering Dr: Kimberly Orourke sa, DO EXAM: [...] 1 o'clock is suspicious. Recommend tissue sampling withultrasound-guide d biopsy. 3. Left breast intraductal masses at [...] be mailed to the patient. Reading Location: [id number] CC: Dr. Lesley Orourke, DO ~ Rn Hedis: Signed [facility] Study report [facility] Imaging Services [address] [place], [place] [address] Lt Brst Unilat Samson Add On MR#: [id number] Acct: [id number] Name: LUCIAN BAUTISTA Rep #: [id number] : 1980 F 44 From: Ofelia Corado MD PCP: Dr. Lesley Orourke DO Status: REG CLI Study:Lt Brst Unilat Samson Add On Date of Exam : 03/09/25 Exam# [id number] Ordering Dr: Kimberly Orourke sa, DO EXAM: [...] an associated biopsy marker clip. BI/Lt Brst [facility] Samson Add On IMPRESSION: 1. Left breast mass at 6:30 o'clock is highly suggestive for malignancy. Recommend tissue sampling with ultrasound-guided biopsy. 2. Left breast mass at 1 o'clock is suspicious. Recommend tissue sampling withultrasound-guide d biopsy. 3. Left breast intraductal masses at [...] be mailed to the patient. Reading Location: [id number] CC: Dr. Lesley Orourke DO ~ Rn Hedis: Signed [facility] DIAG MAMM W/CAD, Parag DIAG MAMM W/CAD, UNILAT [facility] Imaging Services [address] [place] [place], [place] [address] DIAG MAMM W/CAD, UNILAT MR#: [id number] Acct: [id number] Name: LUCIAN BAUTISTA Rep #: [id number] : 1980 F 44 From: Jojo Corado MD PCP: Dr. Lesley Orourke DO Status: [facility] CLI Study: DIAG MAMM W/CAD, UNILAT Date of Exam: 03/09/25 Exam# [id number] Ordering Dr: Lesley Orourke DO EXAM: DIAG [...] be mailed to the patient. Reading Location: [facility] CC: Dr. Lesley Orourke DO Rn Hedis: Signed Normal [facility] Lt Brst Unilat Samson Add Onon 03-09-2025 Lt Brst Unilat Samson Add On [facility] Imaging Services [address] [place] [address] Lt Brst Unilat Samson Add On MR#: [id number] Acct: [id number] Name: LUCIAN BAUTISTA Rep #: [id number] : 1980 F 44 From: Jojo Corado MD PCP: Dr. Lesley Orourke DO Status: REG CLI Study: Lt Brst Unilat Samson Add On Date of Exam: 03/09 Exam# [id number] Ordering Dr: Lesley Orourke DO EXAM: DIAG [...] be mailed to the patient. Reading Location: [facility] CC: Dr. Lesley Orourke DO Rn Hedis: Signed Normal [facility] Breast imaging reportOrdered By: Idania Glez on 03-07-2025 Study report [facility] Imaging Services [address] [place] [address] SCRN MAMM (CAD)W/SAMSON BILAT MR#: [id number] Acct: [id number] Name: LUCIAN BAUTISTA Rep #: [id number] : 1980 F 44 From: Shane Pantoja MD PCP: Dr. Lesley Orourke, Status: REG CLI Study:SCRN MAMM (CAD)W/SAMSON BILAT Date of Exa m: 03/07/25 Exam# [id number] Ordering Dr: Kimberly Orourke sa, DO EXAM: [...] be mailed to the patient. Reading Location: [id number] CC: Dr. Lesley Orourke DO ~ Rn Hedis: Signed [facility] SCRN MAMM (CAD)W/SAMSON BILATo n 03-07-2025 SCRN MAMM (CAD)W/SAMSON BILAT [facility] Imaging Services [address] [place] [address] SCRN MAMM (CAD)W/SAMSON BILAT MR#: [id number] Acct: [id number] Name: LUCIAN BAUTISTA Rep #: [id number] : 1980 F 44 From: Idania Norton i, MD PCP: Dr. Lesley Orourke DO Status: [facility] CLI Study: SCRN MAMM (CAD)W/SAMSON BILAT Date of Exam: 02/14 11/07 Exam# [id number] Ordering Dr: Lesley Orourke DO EXAM: SCRN [...] be mailed to the patient. Reading Location: [id number] CC: Dr. Lesley Orourke, DO Rn Hedis: Signed Normal [facility] Calculated very low density lipoprotein (VLDL) cholesterol measurementOrdered By: Lesley Orourke on 01-24-2025 Calculated very low density lipoprotein (VLDL) cholesterol measurement 21 mg/dL 5-40 [facility] Glucoseon 01-24-2025 Glucose [Mass/Vol] 98 mg/dL Normal 70-99 [facility] Comment on above: Performed By: #### L 501.0100, L500.4100 #### [facility] [address] [place], [place], [id number] LDL calc ser/plasOrdered By: Lesley Orourke on 01-24-2025 Cholesterol in LDL [Mass/Vol] 160 mg/dL [facility] Comment on above: Gppxzshwds=453-022 m g/dL & Higher Idvg=518 mg/dL or greater Lipid Profileon 01-24-2025 CHOL:HDL 4.02 Normal [facility] Comment on above: Performed By: #### L 501.0100, L500.4100 #### [facility] [address] [place], [place], [address] Cholesterol [Mass/Vol] 240 mg/dL High <=200 [facility] Comment on above: Result Comment: Chol esterol level, Desirable <200 mg/dL Borderline high cholesterol 200-239 mg/dL High cholesterol >=240 mg/dL Recommendations of the NCEP Adult Treatment Panel for the following risk-cutoff thresholds for the [place] population. Performed By: #### L 501.0100, L500.4100 #### [facility] [address] [place], [address] Cholesterol in HDL [Mass/Vol] 60 mg/dL Normal [facility] Comment on above: Result Comment: Nora onal Cholesterol Education Program (NCEP) guidelines: <40 mg/dL: Low HDL-cholesterol (major risk factor for CHD) >= 60 mg/dL: High HDL-cholesterol (negative risk factor for CHD) HDL-cholesterol is affected by a number of factors, e.g. smoking, exercise, hormones, sex and age. Performed By: #### L 501.0100, L500.4100 #### [facility] [address] [place], [address] Cholesterol in LDL [Mass/Vol] 160 mg/dL Normal [facility] Comment on above: Result Comment: Bord mjvroz=609-451 mg/dL Higher Dmls=497 mg/dL or greater Performed By: #### L 501.0100, L500.4100 #### [facility] [address] [place], [address] Cholesterol in VLDL [Mass/Vol] 21 mg/dL Normal 5-40 [facility] Comment on above: Performed By: #### L 501.0100, L500.4100 #### [facility] [address] [place], [address] Triglyceride [Mass/Vol] 104 mg/dL Normal [facility] Comment on above: Result Comment: The drugs N-Acetylcysteine and Metamizole may falsely depress this assay. Normal range: <150 mg/dL Borderline High: 150-199 mg/dL High: 200-499 mg/dL Very High: >500 mg/dL Performed By: #### L 501.0100, L500.4100 #### [facility] [address] [place], [address] Screening total cholesterol/ high density lipoprotein (HDL) cholesterol ratioOrdered By: Lesley Orourke on 01-24-2025 Cholesterol.total/Sienna sterol in HDL [Mass ratio] 4.02 {ratio} [facility] Serum glucose measurement (m ass/volume)Ordered By: Lesley Orourke on 01-24-2025 Glucose [Mass/Vol] 98 mg/dL 70-99 [facility] Serum or plasma cholesterol in HDL measurement (mass/volume)Ordered By: Lesley Orourke on 01-24-2025 Cholesterol in HDL [Mass/Vol] 60 mg/dL >40 [facility] Comment on above: National Cholesterol Education Program (NCEP) guidelines:<40 mg/dL: Low HDL-cholesterol (major risk factor for CHD)>= 60 mg/dL: High HDL-cholesterol (negative risk factor for CHD)HDL-cholesterol is affected by a number of factors, e.g. smoking, exercise, hormones, sex and age. Serum or plasma cholesterol measurement (mass/volume)Ordered By: Lesley Orourke on 01-24-2025 Cholesterol [Mass/Vol] 240 mg/dL High <201 [facility] Comment on above: Cholesterol level, D esirable <200 mg/dLBorderline high cholesterol 200-239 mg/dLHigh cholesterol >=240 mg/dLRecommendations of the NCEP Adult Treatment Panel for the following risk-cutoff thresholds for the [place] population. Triglycerides measurementOrd ered By: Lesley Orourke on 01-24-2025 Triglyceride [Mass/Vol] 104 mg/dL <199 [facility] Comment on above: The drugs N-Acetylcy steine and Metamizole may falsely depress this assay. Normal range: <150 mg/dLBorderline High: 150-199 mg/dLHigh: 200-499 mg/dLVery High: >500 mg/dL L3410.9992on 12-26-2024 [facility] Misc. COMMENT Normal . [facility] Comment on above: Order Comment: 1 NUSWAB VAGINITIS PLUS (VG+) Result Comment: Test Ordered: [id number] NuSwab Vaginitis Plus (VG+) Test(s) 18000114- Atopobium vaginae; 18000115- BVAB 2; 18000116- Megasphaera 1 was developed and its performance characteristics determined by [facility]. It has not been cleared or approved by the Food and Drug Administration. Test(s) 939676-Uzvongz albicans, NADIA; 682427- Liliana glabrata, NADIA was developed and its performance characteristics determined by [facility]. 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 Tobacco use CPHS Former smoker Invalid Interpretation Code [facility] [email or web address] Work Phone: Office Visit: right breast a bnormal u/s_left breast ?fibroadenomaon 01-25-2017 Fall risk assessment No [facility] [employer] Work Phone: Protein mass conc Done [facility] [employer] Work Phone: Protein mass conc no [facility] [employer] Work Phone: Tobacco smoking status NHIS Never [facility] [employer] Work Phone: Tobacco smoking status NHIS Former smoker [facility] Work Phone: Vital Signs Date Time Vital Sign Value Performing Clinician Facility 04-04-2025 12:51-0400 Body height 170.8 cm Sravan Alvaradoi DO Work Phone: [facility] 04-04-2025 12:51-0400 Body mass index (BMI) [Ratio] 25.57 kg/m2 rSavan Alvaradoi DO Work Phone: [facility] 04-04-2025 12:51-0400 Body temperature 98.1 [degF] Sravan Alvaradoi DO Work Phone: [facility] 04-04-2025 12:51-0400 Body weight 74.62 kg Sravan Alvaradoi DO Work Phone: [facility] 04-04-2025 12:51-0400 Diastolic blood pressure 73 mm[Hg] Sravan Alvaradoi DO Work Phone: [facility] 04-04-2025 12:51-0400 Heart rate 63 /min Sravan Alvaradoi DO Work Phone: [facility] 04-04-2025 12:51-0400 SaO2% (BldA) [Mass fraction] 100 % Sravan Alvaradoi DO Work Phone: [facility] 04-04-2025 12:51-0400 Systolic blood pressure 136 mm[Hg] Sravan Alvaradoi DO Work Phone: [facility] 03-30-2025 10:01-0400 Body height 167.[address] Lesley Orourke DO Work Phone: [facility] 03-30-2025 10:01-0400 Body mass index (BMI) [Ratio] 26.3 kg/m2 Dr. Lesley Orourke DO Work Phone: [facility] 03-30-2025 10:01-0400 Body weight 73.[address] Lesley Orourke DO Work Phone: [facility] 03-30-2025 10:01-0400 Diastolic blood pressure 79 mm[Hg] Dr. Lesley Orourke DO Work Phone: [facility] 03-30-2025 10:01-0400 Heart rate 74 /min Dr. Lesley Orourke DO Work Phone: [facility] 03-30-2025 10:01-0400 Respiratory rate 17 /min Dr. Lesley Orourke DO Work Phone: [facility] 03-30-2025 10:01-0400 SaO2% (BldA) [Mass fraction] 99 % Dr. Lesley Orourke DO Work Phone: [facility] 03-30-2025 10:01-0400 Systolic blood pressure 136 mm[Hg] Dr. Lesley Orourke DO Work Phone: [facility] 03-14-2025 16:47-0400 Body height 167.[address] Lesley Orourke DO Work Phone: [facility] 03-14-2025 16:47-0400 Body mass index (BMI) [Ratio] 26.2 kg/m2 Dr. Lesley Orourke DO Work Phone: [facility] 03-14-2025 16:47-0400 Body weight 73.[address] Lesley Orourke DO Work Phone: [facility] 03-14-2025 16:47-0400 Diastolic blood pressure 78 mm[Hg] Dr. Lesley Orourke DO Work Phone: [facility] 03-14-2025 16:47-0400 Systolic blood pressure 153 mm[Hg] Dr. Lesley Orourke DO Work Phone: [facility] 03-14-2025 14:56-0400 Body weight 73.[address] Lesley Orourke DO Work Phone: [facility] 03-14-2025 14:56-0400 Diastolic blood pressure 80 mm[Hg] Dr. Lesley Orourke DO Work Phone: [facility] 03-14-2025 14:56-0400 Heart rate 82 /min Dr. Lesley Orourke DO Work Phone: [facility] 03-14-2025 14:56-0400 Respiratory rate 17 /min Dr. Lesley Orourke DO Work Phone: [facility] 03-14-2025 14:56-0400 SaO2% (BldA) [Mass fraction] 98 % Dr. Lesley Orourke DO Work Phone: [facility] 03-14-2025 14:56-0400 Systolic blood pressure 129 mm[Hg] Dr. Lesley Orourke DO Work Phone: [facility] 01-25-2017 14:26-0400 BMI (Body Mass Index) 29.99 kg/m2 Loulou Vasquez RN RN [facility] [employer] Work Phone: 01-25-2017 14:26-0400 Body Temperature 98.3 [degF] Loulou Vasquez RN RN [facility] Work Phone: 01-25-2017 14:26-0400 BP Diastolic 73 mm[Hg] Loulou Vasquez RN RN [facility] Work Phone: 01-25-2017 14:26-0400 BP Systolic 124 mm[Hg] Loulou Vasquez RN RN [facility] Work Phone: 01-25-2017 14:26-0400 Height 167.64 cm Loulou Vasquez RN RN [facility] Work Phone: 01-25-2017 14:26-0400 Pulse (Heart Rate) 66 /min Loulou Vasquez RN RN [facility] Work Phone: 01-25-2017 14:26-0400 Pulse Oximetry 100 % Loulou Vasquez RN RN [facility] Work Phone: 01-25-2017 14:26-0400 Respiratory Rate 18 /min Loulou Vasquez RN RN [facility] Work Phone: 01-25-2017 14:26-0400 Weight 84.28 kg Loulou Vasquez RN RN [facility] Work Phone: Encounters Encounter Date Encounter Type Care Provider Facility Start: [facility]10-[facility] Start: 04-04-2025 End: 04-04-2025 Patient encounter procedure Sravan Dunlap DO Work Phone: Hematology/Oncology Start: 04-04-2025 End: 04-04-2025 ambulatory HAYDEE FOWLER Facility:[facility] Comment on above: Malignant neoplasm o f overlapping sites of left breast in female, estrogen receptor positive (HCC) (Primary Dx) Start: 04-02-2025 End: 04-02-[address] Lesley Orourke DO Work Phone: [facility] Start: 04-02-2025 End: 04-02-[address] Haydee Fowler MD -[facility] Work Phone: Start: 04-02-2025 End: 04-02-2025 ambulatory Haydee Fowler Facility:[facility] Start: 03-30-2025 End: 03-30-[address] Haydee Fowler MD -[facility] Work Phone: Start: 03-30-2025 End: 03-30-[address] Lesley Orourke DO Work Phone: -[facility] Start: 03-21-2025 Non-patient / Non-visit Dr. Edy Fowler MD -[facility] Start: 03-21-[address] Lesley Orourke DO Work Phone: [facility] Start: 03-21-2025 End: 03-21-[address] Lesley Orourke DO Work Phone: [facility] Start: 03-21-2025 End: 03-21-[address] Haydee Fowler MD -[facility] Work Phone: Start: 03-21-2025 End: 03-21-2025 ambulatory Haydee Fowler Facility:[facility] Start: 03-15-2025 End: 03-15-[address] Lesley Orourke DO Work Phone: -Laboratory Start: 03-15-2025 End: 03-15-[address] Nicole Breen DO -Laboratory Work Phone: Start: 03-14-2025 End: 03-14-[address] Nicole Breen DO -[facility] Work Phone: Start: 03-14-2025 End: 03-14-[address] Lesley Orourke DO Work Phone: -[facility] Start: 03-14-2025 End: 03-14-[address] Haydee Fowler MD -[facility] Work Phone: Start: 03-14-2025 End: 03-15-[address] Lesley Orourke DO Work Phone: -[facility] Start: 03-09-2025 End: 03-09-[address] Lesley Orourke DO Work Phone: -Outpatient Breast Imaging Start: 03-09-2025 End: 03-09-[address] Lesley Orourke DO -[facility]patient [facility] Work Phone: Start: 03-09-2025 End: 03-09-2025 ambulatory Lesley Orourke Facility:[facility] Start: 03-07-2025 End: 03-07-[address] Lesley Orourke DO Work Phone: -Outpatient Breast Imaging Start: 03-07-2025 End: 03-07-[address] Lesley Orourke DO -[facility] Work Phone: Start: 03-07-2025 End: 03-07-2025 ambulatory Lesley Orourke Facility:[facility] Start: 01-24-2025 End: 01-24-[address] Lesley Orourke DO Work Phone: [facility] Work Phone: Start: 01-24-2025 End: 01-24-[address] Lesley Orourke DO -Laboratory Work Phone: Start: 01-24-2025 End: 01-24-2025 ambulatory Lesley Orourke Facility:[facility] Start: 12-22-2024 End: 12-22-[address] Lesley Orourke DO Work Phone: [facility] Work Phone: Start: 12-22-2024 End: 12-22-[address] Merle Chairez MD -Laboratory, Specimen Work Phone: Start: 12-22-2024 End: 12-22-2024 ambulatory Merle Chairez Facility:[facility] Start: 04-14-2022 End: 04-14-2022 ambulatory [facility] Work Phone: Start: 04-14-2022 End: 04-14-2022 Patient encounter procedure [facility]-Laboratory, Specimen Start: 02-20-2022 End: 02-20-2022 Patient encounter procedure [facility]-Outpatient Breast Imaging Procedures Date Procedure Procedure Detail Performing Clinician Start: 04-02-[address] Lesley Orourke DO Work Phone: Start: 03-21-2025 MRI of bilateral breasts with contrast Dr. Lesley Orourke DO Work Phone: Start: 03-15-[address] Lesley Orourke DO Work Phone: Start: 03-09-[address] Lesley Orourke DO Work Phone: Start: 03-07-[address] Lesley Orourke DO Work Phone: Start: 12-22-[address] Lesley Orourke DO Work Phone: Comment on above: Test Ordered: [id number] NuSwab Vaginitis Pl us (VG+)Test(s) 470867- Atopobium vaginae; 734527- BVAB 2;081696- Megasphaera 1was developed and its performance characteristicsdetermined by [facility]. It has not been cleared or approvedby the Food and Drug Administration.Test(s) 049543-Ewyewcx albicans, NADIA; 780350-Dknflys glabrata, NAAwas developed and its performance characteristicsdetermined by [facility]. It has not been cleared or approvedby [...] =G Reference Range: NegativePerformed at: = - Lab[address] [id number] Director: Hanna Lopze MD, Phone: [phone] at: [address] [id number] Director: Camron Henson PhD, Phone: [phone] Start: 02-20-2022 Screening mammography Start: 01-25-2017 End: 01-25-2017 Dietary management education, guidance, and counseling Loulou Vasquez RN RN Plan of Treatment Date Care Activity Detail Author Start: 05-09-2025 End: 05-09-2025 ambulatory 05/09/2025 8:50 AM EDT Visit (SP) Office Hematology/Oncology [address] [place] [address] Sravan Dunlap DO [address] [place] [address] 3-4WK OV Hematology/Oncology Comment on above: 3-4WK OV Start: 04-16-2025 Influenza vaccination Influenza Vacc ine (#1) [facility] Start: 03-21-2025 MR Breast - bilatera l WO and W contrast IV [facility] Start: 03-21-2025 MRI of bilateral michael asts with contrast Breast Bilateral W/O and W [facility] Start: 2020 Screening for malign ant neoplasm of breast Mammogram Screening [facility] Start: 02-17-2017 End: 02-17-2017 Appointment Appointment [facility] Work Phone: Start: 01-25-2017 End: 01-25-2017 Appointment Appointment [facility] [email or web address] Work Phone: Start: 01-25-2017 End: 01-25-2017 Bx breast w/device 1st lesion ultrasound guid Bx Breast, device placement, US guidance [facility] [employer] Work Phone: Start: 01-25-2017 End: 01-25-2017 Follow Up after Imaging/labs Follow Up after Imaging/labs [facility] [employer] Work Phone: Start: 10-11-2011 Screening for malign ant neoplasm of cervix Cervical Cancer Screening [facility] Start: 2007 HPV Vaccine (1 - 3-d ose SCDM series) HPV Vaccine (1 - 3-dose SCDM series) [facility] Start: 05-02-2005 Urine microalbumin profile DTaP,Tdap,Td Vaccine (1 - Tdap) [facility] Start: 1999 Hepatitis B Vaccine (1 of 3 - 19+ 3-dose series) Hepatitis B Vaccine (1 of 3 - 19+ 3-dose series) [facility] Start: 1998 Anxiety Screening Anxiety Screening [facility] Start: 1998 Depression Screening Depression Scre ening [facility] Start: 1998 Hepatitis C screening Hepatitis C Sc harjit [facility] Start: 1998 HIV screening HIV Screening [facility] MR Breast - bilatera l WO and W contrast IV [facility] Path report.final Dx Spec [facility] Work Phone: PET CT of whole body [facility] End: 05-04-2026 PET+CT Guidance for localization of tumor of Skull base to mid-thigh-- W 18F-FDG IV NM PET/CT SKULL-THIGH INITIAL Radiology Routine Malignant neoplasm of overlapping sites of left breast in female, estrogen receptor positive (HCC) 1 Occurrences starting 04/04/2025 until 05/04/2026 [facility] Work Phone: Comment on above: 1 Occurrences starti ng 04/04/2025 until 05/04/2026 [facility] Immunizations Immunization Date Immunization Notes Care Provider Benjamín albert 05-01-2005 tetanus and diphther ia toxoids, adsorbed, preservative free, for adult use (2 Lf of tetanus toxoid and 2 Lf of diphtheria toxoid) Sravan Dunlap DO Work Phone: [facility] Payers Date Payer Category Payer Self-pay [id number] 2024 Private Health Insurance M[employer] PPO [id number] 2024 Unknown [id number] 2014 Unknown [id number] Private Health Insurance [id number] Unknown [id number]. 462 Unknown [id number] 2.16.840.1.796417.3.579.2. 462 Unknown [id number] 2.16.840.1.372094.3.579.2. 462 Unknown [id number] 2.16.840.1.298119.3.579.2. 462 Unknown [id number] 2.16.840.1.689006.3.579.2. 462 Unknown [id number] 2.16.840.1.691169.3.579.2. 462 Unknown [id number] 2.16.840.1.948069.3.579.2. 462 Unknown [id number] 2.16.840.1.878317.3.579.2. 462 Unknown [id number] 2.16.840.1.537028.3.579.2. 462 Unknown [id number] 2.16.840.1.363704.3.579.2. 462 Unknown [id number] 2.16.840.1.255254.3.579.2. 462 Unknown [id number] 2.16.840.1.176791.3.579.2. 462 Social History Date Type Detail Facility Start: 05-15-2013 Tobacco smoking stat [facility] Unknown if ever smoked [facility] Work Phone: Start: 1980 Sex Assigned At Female [facility] Start: 05-15-2013 End: 04-04-2025 Tobacco smoking status ILIS Ex-smoker (finding) [facility] History of tobacco use Current smoker [facility] History of tobacco use Cigarette Smoker C [facility] Start: 04-04-2025 Tobacco use and exposure Smokeless tobacco non-user [facility] Start: 04-04-2025 Alcoholic beverage intake Current drinker of alcohol (finding) [facility] Start: 04-04-2025 History of Social function [facility] Start: 04-04-2025 Tobacco use panel [facility] Start: 07-17-2012 National Score (1-10 0), lower number is lower risk 65 [facility] Start: 04-04-2025 Tobacco Comment Social smoker x 3 years, late [facility] Start: 1980 Sex assigned at Not on file C [facility] History of Present illness Narrative 04-04-2025 Sravan Dunlap DO - 04/04/2025 1:00 PM EDT Note Date & Type Note Facility 04-04-2025 History of Presen t illness Narrative Patient referred by Dr. Orourke for abnormal mammogram. HPI: Patient is a 44-year-old premenopausal female with a past medical history as outlined below. Bilateral screening mammogram 03/07/2025 demonstrated heterogeneously dense breasts. In the left breast there was a spiculated mass in the lower inner left breast posterior depth. No suspicious masses, calcifications or other abnormalities were identified in the right breast. Patient had a diagnostic mammogram with ultrasound 03/09/2025. Mammogram imaging redemonstrated an irregular high density mass in the lower inner left breast at posterior depth. An ultrasound there was an irregular hypoechoic mass with spiculated margins in the left breast at 6:30 position 9 cm from the nipple measuring 1.9 x 1.5 x 0.8 cm. This correlated to the abnormality on the mammogram. There was an additional irregular hypoechoic mass in left breast at 1 o'clock position 8 cm from the nipple. It measured 2.1 x 1.7 x 1.0 cm. There is associated internal vascular flow. Morphologically it appears similar to the mass at the 6:30 position. There were 2 additional intraductal masses associated vascular flow in the left breast at 10:00 at 5 cm from the nipple measuring 0.4 x 0.4 x 0.2 and at the 10:30 position measuring 0.3 x 0.3 x 0.2 cm. 3 abnormal axillary lymph nodes were noted. 1 had a focal bulge measuring 1.7 x 1.2 x 1.3 cm with a cortical thickness of 0.4 cm. There was an abnormal left axillary lymph node with loss of the fatty hilum measuring 0.9 x 0.8 x 0.9 cm. And a third abnormal left axillary lymph node was observed with diffuse cortical thickening and effacement of the fatty hilum measuring 1.8 x 1.8 x 0.9 cm with cortical thickness of 7 mm. Underwent core needle biopsy of the lesion at the 7:00 and 1:00 positions. Also had a core needle biopsy of a left axillary lymph node on 03/14/2025. Pathology: MICROSCOPIC DIAGNOSIS A. Breast, left, 7 o clock, 7-10 CMFN, core biopsy: - Invasive ductal carcinoma with neuroendocrine features. - Grade 2 (tubule 3, nuclear 2, mitosis 1). - At least 1.2 cm - ER: positive (95%, intermediate intensity) - MO: positive (80%, intermediate intensity) - [id number]: negative (0) - Ki67: 80% Note: Ecadherin is positive; p120 shows membranous staining pattern, confirming the diagnosis of ductal carcinoma. Synaptophysin is focally positive; Chromogranin is negative. B. Breast, left, 1 o clock, 8 CMFN, core biopsy: - Invasive ductal carcinoma with neuroendocrine features. - Grade 2 (tubule 3, nuclear 2, mitosis 1). - At least 1.0 cm - ER: positive (95%, intermediate intensity) - MO: positive (100%, strong intensity) - [id number]: negative (1+) - Ki67: 90% Note: Ecadherin is positive; p120 shows membranous staining pattern, confirming the diagnosis of ductal carcinoma. Synaptophysin is focally positive; Chromogranin is negative. C. Lymph node, left axilla, core biopsy: - Positive for macrometastasis, at least 0.8 cm (two of two cores). MRI Breast 03/21/2025: COMPARISON: Mammogram and ultrasound 03/09/2025. Mammogram 03/07/2025, 03/30/2023, 02/20/2022. FINDINGS: TISSUE DENSITY: The breasts are heterogeneously dense, which may obscure small masses. Background Parenchymal Enhancement: Mild RIGHT Breast: There is a mildly enhancing mass in the upper-outer right breast at middle depth, measuring 1.6 x 0.9 x 1.7 cm AP by TR by CC (series [id number] image 141, series 8 image 19). This mass demonstrates progressive enhancement when compared to delayed images. LEFT Breast: 1. There is an irregular enhancing mass with an associated biopsy marker clip in the upper-outer left breast at posterior depth at 1 o'clock 8 cm from the nipple, measuring 2.2 x 2.1 x 1.7 cm AP by TR by CC (series [id number] image 104, series 7, image 12). Marker clip centrally there is linear non-mass enhancement extending 1.5 cm inferior and 2.0 cm anterior to the mass. The mass abuts the underlying pectoralis muscle, however there appears to be a preserved fat plane. There is no definite evidence of abnormal enhancement in the underlying pectoralis muscle. This is consistent with the biopsy-proven malignancy at 1 o'clock 8 cm from the nipple. 2. There is an irregular enhancing mass with an associated biopsy marker clip in the lower inner left breast at posterior depth at 6:30 o'clock 9 cm from the nipple, measuring 2.3 x 1.4 x 2.0 cm AP by TR by CC (series [id number] image 203, series 7 image 18). This mass is approximately 0.6 cm from the underlying pectoralis muscle. This is consistent with the biopsy-proven malignancy at 630/7 o'clock 9 cm from the nipple. 3. There are 2 other subcentimeter enhancing masses in the upper-outer left breast, medial to the mass at 1 o'clock 8 cm from the nipple. The masses measure up to 0.9 cm (series [id number], image 135) and 0.5 cm (series 33117, image 115). These masses are suspicious for satellite lesions. 4. There is a 1.7 cm enhancing mass in the upper-outer left breast at anterior depth with an associated biopsy marker clip. This mass has been mammographically stable on multiple priors dating back to 2021 and is considered benign. Other Findings: There is left axillary lymphadenopathy, with a biopsy marker clip associated with an enlarged abnormal lymph node measuring 1.9 x 1.2 x 1.6 cm (series [id number], image 58), this is consistent with the biopsy-proven shady metastatic disease. There is at leas 1 prominent right axillary lymph node measuring 0.9 x 0.8 cm (series 15307, image 69). There are no suspicious internal mammary lymph nodes. Visualized portions of the thoracic and abdominal viscera are unremarkable. IMPRESSION: 1. Irregular enhancing mass in the left breast at 1 o'clock, is consistent with the biopsy-proven malignancy. The mass abuts the underlying pectoralis muscle, without evidence of underlying enhancement of the pectoralis. There are additional subcentimeter enhancing masses in the adjacent breast tissues in the upper-outer quadrant, which are suspicious for satellite lesions. 2. Irregular enhancing mass in the left breast at 630/7 o'clock, is consistent with the biopsy-proven malignancy. The mass is 0.6 cm from the underlying pectoralis muscle. 3. Left axillary lymphadenopathy, with an associated biopsy marker clip with an enlarged abnormal left axillary lymph node. This is consistent with the biopsy-proven shady metastatic disease. 4. There is an enhancing mass in the upper-outer right breast at middle depth that is indeterminate. Also, there is a prominent right axillary lymph node. Recommend second-look ultrasound of the right breast and right axilla with subsequent ultrasound-guided biopsy if indicated. If no sonographic correlate is visualized, this mass is amenable to MRI guided biopsy. US Right breast and axilla 04/02/2025: BREAST LIMITED UNILATERAL FINDINGS: There is a solid hypoechoic mass identified in the right breast of the 10 o'clock, 5 cm from the nipple position measuring 2.1 x 1.8 x 1.1 cm. This mass has heterogeneous echotexture and a lobulated configuration. It does correlate to the enhancing mass seen on the MRI examination. It appears similar in location when compared to the prior right breast mass that was biopsied back in 2017. The biopsy was shown to represent a benign process. Since this mass seen, on today's ultrasound examination, has equivocal enhancement based upon MRI criteria, re-biopsy is warranted in order to completely exclude a malignancy. There is a benign-appearing cyst identified at the 9 o'clock, 7 cm from the nipple position measuring 11 x 7 x 3 mm. There is an abnormal appearing right axillary lymph node which appears to lack of fatty hilum. This measures 11 x 7 x 5 mm. The cortex appears thick. Biopsy is warranted in order to completely exclude a malignancy. There are benign-appearing axillary lymph nodes seen. These have a fatty hilum and the cortexes are not abnormally thickened. These masses measure 11 x 11 x 7 mm and 12 x 10 x 7 mm. IMPRESSION: There is an abnormal appearing mass in the right breast at the 10 o'clock position as well as an abnormal appearing right axillary lymph node. Biopsy of both of these masses should be performed prior to the patient being taken to surgery in order to completely exclude a malignancy. Progesterone IUD was removed. Had occasional spotting when had IUD. Perhaps hot flash or two since removal. PAST MEDICAL HISTORY Diagnosis Date Abnormal glandular Papanicolaou smear of cervix Abn. Pap smear (cervix) PAST SURGICAL HISTORY Procedure Laterality Date BX BREAST W/DEVICE 1ST LESION ULTRASOUND GUID Left 04/10/15 U/S bx UOQ left breast COLPOSCOPY CERVIX UPPER/ADJACENT VAGINA Colposcopy DULoxetine (CYMBALTA) 20 mg capsule Take 40 mg by mouth once daily. ALLERGIES Allergen Reactions Sulfa (Sulfonamide * Rash SOCIAL HISTORY[1] FAMILY HISTORY Problem Relation Age of Onset Stroke Father other (Vasculitis [Other]) Father Diabetes Father Surgical History H/O breast biopsy Family History Father Hypertension Father was adopted and nothing known of his family history. Mother Heart disease a fib Hypertension Brother Diabetes Social History Smoking Status: Former smoker Son--age 14. Daughter--age 26. REVIEW OF SYSTEMS: Constitutional: No episodes of fever and night sweats. Not significantly fatigued. Normal appetite. Neuro: No CHUR[place], vertigo, dizziness and imbalance. No symptoms of neuropathy. HEENT: No recent change in voice, vision or hearing. Resp: No cough, wheeze and hemoptysis. No shortness of breath at rest. No CLEARY. CVS: No exertional chest pain, PND, orthopnea and LE edema. GI: No reflux, n/v, change in bowel habits or abdominal pain. : No dysuria or gross hematuria. Endo: See above. Musculoskeletal: No bone, back, joint and muscular pain. Derm: No current rash. Heme: No unusual bleeding and unexplained bruising. Psych: Normal mood. Participation of a fellow, resident, medical student, or advanced practice provider student in performing the sensitive examination was discussed with the patient or authorized sales representative jewelry. The patient or authorized sales representative jewelry has agreed to proceed with the sensitive examination. Medina Aaron LPN chaperoneodilia. PHYSICAL EXAM: Vitals: Blood pressure 136/73, pulse 63, temperature 36.7 C (98.1 F), temperature source Temporal, height 170.8 cm (5' 7.25"), weight 74.6 kg (164 lb 8 oz), last menstrual period 09/29/2006, SpO2 100%. Well-appearing and in no acute distress. EYES: Sclerae are anicteric bilaterally. LYMPHATIC: Mobile LN left axilla. CARDIOVASCULAR: Rhythm is regular. BREAST: Small mobile mass deep to biopsy site about 1 o'clock left breast. ABDOMEN: The abdomen is nondistended. SKIN: No jaundice. 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 -Right sided suspicious lesion and axillary LN on MRI. -Scheduled for biopsy of right breast lesion and LN. -Discussed PET and recommended it for staging. Plan: -PET scan. -See back after PET and biopsy. I spent a total of 65 minutes on the date of the service which included preparing to see the patient, [id number] patient care, completing clinical documentation, obtaining and/or reviewing separately obtained history, performing a medically appropriate examination, counseling and educating the patient/family/caregiver, ordering medications, tests, or procedures, and communicating results to the patient/family/caregiver. Sravan Dunlap DO [1] Social History Tobacco Use Smoking status: Never Substance Use Topics Alcohol use: Yes Comment: Occasionally Drug use: No documented in this encounter [facility] Radiology Diagnostic study note 04-02-2025 Note Date & Type Note Facility 04-02-2025 Radiology Diagnostic study note [facility] Imaging Services [address] [place] [id number] Breast Limited Unilateral MR#: [id number] Acct: [id number] Name: LUCIAN BAUTISTA Rep #: [id number] : 1980 F 44 From: Tonny Edge DO PCP: Dr. Lesley Orourke DO Status: REG CLI Study:Breast Limited Unilateral Date of Exam: 04/02/25 Exam# [id number] Ordering Dr: Haydee Fowler MD PROCEDURE: BREAST LIMITED UNILATERAL 04/02/2025 REASON FOR EXAM: F, Age 44 y/o , CHECK RIGHT BREAST PER MRI REPORT. Recent diagnosis of left breast cancer. Right breast mass. Inconclusive breast MRI. Evaluate. Prior history of right breast mass which was biopsied and shown to represent a benign process. COMPARISON: Bilateral breast MRI dated 03/21/2025 and mammogram studies dated 03/09/2025, 03/07/2025, 03/30/2023, and 02/20/2022. A left breast ultrasound dated 01/13/2017 was also reviewed.. TECHNIQUE: BREAST LIMITED UNILATERAL FINDINGS: There is a solid hypoechoic mass identified in the right breast of the 10 o'clock, 5 cm from the nipple position measuring 2.1 x 1.8 x 1.1 cm. This mass has heterogeneous echotexture and a lobulated configuration. It does correlate to the enhancing mass seen on the MRI examination. It appears similar in location when compared to the prior right breast mass that was biopsied back in 2017. The biopsy was shown to represent a benign process. Since this mass seen, on today's ultrasound examination, has equivocal enhancement based upon MRI criteria, re-biopsy is warranted in order to completely exclude a malignancy. There is a benign-appearing cyst identified at the 9 o'clock, 7 cm from the nipple position measuring 11 x 7 x 3 mm. There is an abnormal appearing right axillary lymph node which appears to lack of fatty hilum. This measures 11 x 7 x 5 mm. The cortex appears thick. Biopsy is warranted in order to completely exclude a malignancy. There are benign-appearing axillary lymph nodes seen. These have a fatty hilum and the cortexes are not abnormally thickened. These masses measure 11 x 11 x 7 mm and 12 x 10 x 7 mm. US/Breast Limited Unilateral IMPRESSION: There is an abnormal appearing mass in the right breast at the 10 o'clock position as well as an abnormal appearing right axillary lymph node. Biopsy of both of these masses should be performed prior to the patient being taken to surgery in order to completely exclude a malignancy. BI-RADS 4: SUSPICIOUS RECOMMENDATION: Biopsy Recommended Reading Location: [id number] CC: Dr. Lesley Orourke DO; Dr. Haydee Fowler MD ~ Rn Hedis: Signed [facility] Evaluation note 03-14-2025 Note Date & Type Note Facility 03-14-2025 Evaluation note Diagnosis Onset Date Resolution Axillary lymphadenopathy acute March 14, 2025 2:39pm Left breast mass acute February h2024 2:39pm [employer] [facility] Work Phone: Evaluation note 03-14-2025 Note Date & Type Note Facility 03-14-2025 Evaluation note Diagnosis Onset Date Resolution Axillary lymphadenopathy acute March 14, 2025 2:39pm Left breast mass acute February h2024 2:39pm Axillary lymphadenopathy acute March 14, 2025 4:42pm IUD (intrauterine device) in place acute March 14, 2025 4:42pm Left breast mass acute February 4:42pm [facility] [employer] [facility] Work Phone: Evaluation note 03-14-2025 Note Date & Type Note Facility 03-14-2025 Evaluation note Diagnosis Onset Date Resolution Axillary lymphadenopathy acute March 14, 2025 2:39pm Left breast mass acute February 2:39pm Axillary lymphadenopathy acute March 14, 2025 4:42pm IUD (intrauterine device) in place acute March 14, 2025 4:42pm Left breast mass acute February 4:42pm Axillary lymphadenopathy acute March 30, 2025 9:55am Invasive ductal carcinoma of left breast acute March 30 9:55am [facility] Work Phone: Radiology Diagnostic study note 03-09-2025 Note Date & Type Note Facility 03-09-2025 Radiology Diagnostic study note [facility] Imaging Services [address] [place] [address] [id number] Breast Complete Unilateral MR#: [id number] Acct: [id number] Name: LUCIAN BAUTISTA Rep #: [id number] : 1980 F 44 From: Ofelia Corado MD PCP: Dr. Lesley Orourke, Status: REG CLI Study:Breast Complete Unilateral Date of Exam : 03/09/25 Exam# [id number] Ordering Dr: Kimberly Orourke sa DO EXAM: [...] be mailed to the patient. Reading Location: [id number] CC: Dr. Lesley Orourke, DO ~ Rn Hedis: Signed [facility] Evaluation note Note Date & Type Note Facility Evaluation note No assessment information availa [facility] Work Phone: Evaluation note Note Date & Type Note Facility Evaluation note Diagnosis Malignant neoplasm of overlapping sites of left breast in female, estrogen receptor positive (HCC)- Primary documented in this encounter [facility] Discharge instructions Note Date & Type Note Facility Hospital Discharge instructions Ambulatory OrdersOncology Location: None [facility] Work Phone: Reason for referral (narrative) Note Date & Type Note Facility Reason for referral (narrative) No reason for referral information available [facility] Work Phone: Chief Complaint and Reason for Visit Chief Complaint SCREENING Chief Complaint Admit Date screening March 07, 2025 2:44 pm LT BREAST ABN MAMM March 09, 2025 9:25 am Chief Complaint Admit Date screening March 07, 2025 2:44 pm LT BREAST ABN MAMM March 09, 2025 9:25 am birads March 14, 2025 2:39 pm Chief Complaint Admit Date screening March 07, 2025 2:44 pm LT BREAST ABN MAMM March 09, 2025 9:25 am birads March 14, 2025 2:39 pm Liletta Removal *ok per JV March 14 4:42pm Reason for Visit Admit Date Axillary lymphadenopathy March 14, 2025 2:39pm Left breast mass March 14, 2025 2:39 pm Chief Complaint Admit Date screening March 07, 2025 2:44 pm LT BREAST ABN MAMM March 09, 2025 9:25 am birads 5 March 14, 2025 2:39 pm Liletta Removal *ok per JV March 14 4:42pm [facility] March 15, 2025 10:0 9am ABN ARGENIS AND US March 21, 2025 11: 01am Referral Order March 21, 2025 3:2 4pm Reason for Visit Admit Date Axillary lymphadenopathy March 14, 2025 2:39pm Left breast mass March 14, 2025 2:39 pm Axillary lymphadenopathy March 14, 2025 4:42pm IUD (intrauterine device) in place March 14, 2025 4:42pm Left breast mass March 14, 2025 4:42 pm Chief Complaint Admit Date screening March 07, 2025 2:44 pm LT BREAST ABN MAMM March 09, 2025 9:25 am birads 5 March 14, 2025 2:39 pm Liletta Removal *ok per JV March 14 4:42pm [facility] March 15, 2025 10:0 9am ABN ARGENIS AND US March 21, 2025 11: 01am Referral Order March 21, 2025 3:2 4pm DISCUSS SX March 30, 2025 9: 55am Chief Complaint Admit Date screening March 07, 2025 2:44 pm LT BREAST ABN MAMM March 09, 2025 9:25 am birads 5 March 14, 2025 2:39 pm Liletta Removal *ok per JV March 14 4:42pm [facility] March 15, 2025 10:0 9am ABN ARGENIS AND US March 21, 2025 11: 01am Referral Order March 21, 2025 3:2 4pm DISCUSS SX March 30, 2025 9: 55am F/U RIGHT BREAST MASS April 02, 2025 12:27pm Reason for Visit Admit Date Axillary lymphadenopathy March 14, 2025 2:39pm Left breast mass March 14, 2025 2:39 pm Axillary lymphadenopathy March 14, 2025 4:42pm IUD (intrauterine device) in place March 14, 2025 4:42pm Left breast mass March 14, 2025 4:42 pm Axillary lymphadenopathy March 30 9:55am Invasive ductal carcinoma of left breast March 30, 2025 9:55am Family History Relationship Condition Age at Onset Recorded Date/T kiki father Hypertension Unknown mother Cardiac disease Unknown Hypertension Unknown brother Diabetes mellitus Unknown Summary Purpose Advance Directives No Advanced Directives Records FoundNo Advanced Directives Records Found Additional Source Comments [...] 2025 End: March 14, 2025 Team Status: Active Member Role/Relationship Status Dates Dr. Lesley Orourke DO Primary Care Provider Active Start: March 15, 2025 Dr. Nicole Breen DO Attending Provider Activ e Start: March 15, 2025 Dr. Nicole Breen DO Referring Provider Activ e Start: March 15, 2025 Team Status: Active Member Role/Relationship Status Dates Dr. Lesley Orourke DO Primary Care Provider Active Start: March 21, 2025 Dr. Haydee Fowler MD Attending Provider Active Start: March 21, 2025 Dr. Haydee Fowlre MD Referring Provider Active Start: March 21, 2025 Team Status: Active Member Role/Relationship Status Dates Dr. Lesley Orourke DO Primary Care Provider Active Start: March 21, 2025 Dr. Haydee Fowler MD Attending Provider Active Start: March 21, 2025 Team Status: Inactive Member Role/Relationship Status Dates Dr. Lesley Orourke DO Primary Care Provider Active Start: March 15, 2025 End: March 15, 2025 Dr. Nicole Breen DO Attending Provider Activ e Start: March 15, 2025 End: March 15, 2025 Dr. Nicole Breen DO Referring Provider Activ e Start: March 15, 2025 End: March 15, 2025 Team Status: Inactive Member Role/Relationship Status Dates Dr. Lesley Orourke DO Primary Care Provider Active Start: March 21, 2025 End: March 21, 2025 Dr. Haydee Fowler MD Attending Provider Active Start: March 21, 2025 End: March 21, 2025 Dr. Haydee Fowler MD Referring Provider Active Start: March 21, 2025 End: March 21, 2025 Team Status: Inactive Member Role/Relationship Status Dates Dr. Lesley Orourke DO Primary Care Provider Active Start: March 30, 2025 End: March 30, 2025 Dr. Lesley Orourke DO Referring Provider Active St art: March 30, 2025 End: March 30, 2025 Dr. Haydee Fowler MD Attending Provider Active Start: March 30, 2025 End: March 30, 2025 Team Status: Inactive Member Role/Relationship Status Dates Dr. Lesley Orourke DO Primary Care Provider Active Start: April 02, 2025 End: April 02, 2025 Dr. Haydee Fowler MD Attending Provider Active Start: April 02, 2025 End: April 02, 2025 Dr. Haydee Fowler MD Referring Provider Active Start: April 02, 2025 End: April 02, 2025 [employer] Relationship Specialty Start Date End Date Lesley Orourke DO [address] [place] [id number] PCP - General Family Medicine 04/04/25 INFORMATION SOURCE (unrecogn ized section and content) DATE CREATED AUTHOR 04/06/2025 [facility] DATE CREATED AUTHOR AUTHOR'S ORGANIZ ATION 04/08/2025 [facility] Source Comments (unrecognize d section and content) In the event this informatio n is protected by the Federal Confidentiality of Alcohol and Drug Abuse Patient Records regulations: The Federal rules restrict any use of the information to criminally investigate or prosecute any alcohol or drug abuse patient.[facility] Reason for Visit (unrecogniz ed section and content) Reason Comments New Patient Evaluation FOR RECORDS PERTAINING TO PATIENTS WHO ARE [...] BE BASED ON THE PRIMARY CLINICAL RECORDS. [facility] [email or web address] [facility]. provides no warranty or guarantee of the accuracy or completeness of information in this document.
== END 2025-04-10 23:59 | disposition home or self-care (01) ==
PROVIDERS: PCP Family Medicine; Referring Provider Surgery; Visit Provider Surgery
DX: N60.21 Fibroadenosis of right breast (principal); R92.8 Other abnormal and inconclusive findings on diagnostic imaging of breast
CPT/HCPCS: 19083; 19084; 88305; 88341; 88342

== ENCOUNTER → 2025-04-17 | Outpatient (CLI) | payer OTHER, SELFPAY ==
--- NOTE | 2025-04-17 11:30 | PET_ITS ---
PROCEDURE: PET/CT TUMOR BASE -THIGH INIT 04/17/2025 REASON FOR EXAM: 44 y/o F with L BREAST INVASIVE DUCTAL CARCINOMA W/ NEUROENDOCRINE FEATURES TECHNIQUE: Procedure Code: PETPTCTINIT Modality: PT Procedure: PET/CT TUMOR BASE -THIGH INIT After intravenous injection of millicuries of FDG and a standard uptake period, a noncontrast CT scan, followed by a PET scan were acquired along the length of the body from the base of the skull to the mid thighs. The noncontrast helical CT imaging was performed without breath hold, for attenuation correction of PET images and anatomic correlation, but not for primary interpretation, as it is not of the standard diagnostic quality. Images were reviewed in the axial, coronal and sagittal planes. RADIATION DOSE SUMMARY: Effective Dose: Approximately 7 mSv for a standard whole-body PET scan Organ Doses: Varies by organ, with higher doses typically to the bladder, liver, and brain CTDI: 8.1 DLP: 738.54 COMPARISON: COMPARISON FROM CT, PET OR OTHER PERTINENT EXAMS: None. FINDINGS: Physiologic uptake: There may be expected metabolic uptake within the brain, tongue and floor of the mouth and larynx/vocal cords, heart, kendrick (many normal individuals have hilar uptake in less than 3 nodes with mildly avid hilar nodes less than 2.7 SUV), liver and spleen, system, and GI tract and symmetric muscle uptake. FDG AVID AND NON-AVID LESIONS. Reported avid SUV values (g/mL) are maximum SUV. Head and neck: There is a normal distribution of FDG activity in the visualized brain parenchyma. There is normal uptake within the soft tissues of the neck and glandular structures. There is no hypermetabolic lymphadenopathy. There is a right-sided nasal spur. Chest: There is a 4.3 by 3.8 x 1.9 cm area of hypermetabolic activity in the upper outer quadrant of the right breast, max SUV 13.4. There is a 13 x 8 mm soft tissue density nodule in the lower inner quadrant of the left breast demonstrating hypermetabolic activity, max SUV 10.6. There are multiple hypermetabolic lymph nodes in the left axilla, max SUV 20.2. There is a hypermetabolic right axillary lymph node, max SUV 19.7. There are biopsy clips in the right upper quadrant mass and in the bilateral axillary lymphadenopathy. There are no pleural effusions. The heart size is normal. There is no pericardial effusion. There is no calcific vascular disease of the coronary arteries evident. There is no hypermetabolic mediastinal or hilar lymphadenopathy. Abdomen and pelvis: There is borderline splenomegaly. There is minimal calcific vascular disease of the abdominal aorta. There is a 4.1 cm in diameter cyst in the left hemipelvis posterior to the uterus consistent with a left ovarian cyst. There is no associated FDG activity. There is free fluid in the pelvis consistent with recent ovulation. There is a normal distribution of FDG activity within the gastrointestinal and genitourinary tract. There is no hypermetabolic lymphadenopathy identified. Musculoskeletal: There is a focus of hypermetabolic activity in the right scapula, max SUV 14.1. There is a focus of hypermetabolic activity in the right sacral ala, max SUV 10.7. There is a focus of hypermetabolic activity in the right femoral neck, max SUV 5.1. There are no corresponding abnormalities on the CT examination. Uptake time: 60 minutes. Hepatic blood pool: Max SUV, 2.5 Blood glucose (mg/dL): 89 BMI: 26.3 PET/PET/CT Tumor Base -Thigh Init IMPRESSION: 1. Foci of abnormal activity in the upper-outer quadrant and lower inner quadr ant of the left breast consistent with multicentric breast cancer. 2. There is hypermetabolic lymphadenopathy in both axilla, consistent with met astatic disease. 3. There are multiple foci of hypermetabolic skeletal activity, consistent wit h metastatic disease. 4. Other findings as noted. Reading Location: [id number]
== END | disposition home or self-care (01) ==
LOC: ONC 08:36
PROVIDERS: PCP Family Medicine; Referring Provider Surgery; Visit Provider Surgery
DX: C50.912 Malignant neoplasm of unspecified site of left female breast (principal)
CPT/HCPCS: 78815; A9552